=== PATIENT | female | born 1935 | race Caucasian/White ===

== ENCOUNTER 2016-05-31 10:13 | Emergency (ER) | payer MEDICARE, OTHER ==
[2016-05-31 10:47] VITALS: TEMP 98.6
--- NOTE | 2016-05-31 10:57 | ED.PDOC ---
History of Present Illness - General Chief Complaint: Lower Extremity Injury Stated Complaint: RIGHT ANKLE INJURY Time Seen by Provider: 05/31/16 10:42 Source: patient, family Exam Limitations: no limitations - History of Present Illness Initial Comments: Patient presents with right foot drop. She fell three times yesterday on an attempt to get to the restroom. Since then, she has not been able to dorsiflex the right foot. She can plantar flex it. She has no pain in the leg or foot. She has full sensation over the entire foot and can flex and extend the toes. No previous episodes. Patient has a history of CVA but has no other neurological complaints. Occurred: yesterday Method of Injury: unknown Improving Factors: nothing Worsening Factors: nothing Allergies/Adverse Reactions: Allergies Penicillin G Allergy (Mild, Verified 09/14/14 10:32) Rash Home Medications: Ambulatory Orders Gabapentin 300 mg PO BID 03/01/13 HYDROcodone 10MG/APAP 325MG [[place] 10/325] 10 - 325 mg PO TID 03/01/13 Warfarin Sodium 3 mg PO DAILY 03/01/13 predniSONE [(None)] 5 mg PO DAILY 03/01/13 Omeprazole 40 mg PO DAILY 06/09/13 Zonisamide 1 cap PO HS 06/09/13 Aspirin [(None)] 81 mg PO DAILY 09/14/14 Levothyroxine Sodium [Levoxyl] 100 mcg PO DAILY 09/14/14 Atenolol [Tenormin] 25 mg PO DAILY 02/18/15 Cyanocobalamin Inj [Vitamin B-12 Inj] 1,000 mcg IM MONTHLY 02/18/15 Fluoxetine HCl 20 mg PO DAILY 02/18/15 Levetiracetam 500 mg PO BID 02/18/15 Triamterene & Hydrochlorothiaz [Triamterene/Hydrochloroth 37.5-25 mg] 2 tab PO DAILY 02/18/15 Review of Systems - Review of Systems Constitutional: States: no symptoms reported EENTM: States: no symptoms reported Respiratory: States: no symptoms reported Cardiology: States: no symptoms reported Gastrointestinal/Abdominal: States: no symptoms reported Genitourinary: States: no symptoms reported Musculoskeletal: States: see HPI Skin: States: no symptoms reported Neurological: States: see HPI Endocrine: States: no symptoms reported Hematologic/Lymphatic: States: no symptoms reported Past Medical History (General) - Patient Medical History Hx Seizures: Yes Hx Stroke: Yes - TIA's Hx Cardiac Disorders: Yes - DVT, PE Hx Congestive Heart Failure: No Hx Hypertension: Yes Hx Thyroid Disease: Yes Hx Diabetes: No Hx Hepatitis C: No Surgical History: appendectomy, Hysterectomy - Vaccination History Hx Influenza Vaccination: Yes Hx Pneumococcal Vaccination: Yes - Social History Hx Tobacco Use: Yes Family Medical History - Family History Mother Living Status: Hx Family Congestive Heart Failure: Yes Hx Family Diabetes: Yes Physical Exam - Physical Exam General Appearance: Alert Eyes, Ears, Nose, Throat: normal ENT inspection Neck: non-tender, full range of motion, supple Cardiovascular/Respiratory: regular rate, rhythm Gastrointestinal/Abdominal: non-tender, other - NABS Back: normal inspection Thigh/Hip: normal inspection Leg: normal inspection Knee: normal inspection Ankle: normal inspection Foot: other - 5/5 strength to plantar flexion of the right and left feet. 5/5 strength to dorsiflexion of the left foot but patient is unable to dorsiflex the right foot. Normal achilles DTR and patellar DTR bilaterally. Full sensation to one gram probe over entire foot bilaterally. Progress - Progress Progress: 05/31/16 12:03 three view of right ankle showed no fractures nor dislocations. Patient ambulated very well with her walker and was able to hold the right foot at horizontal while walking. Discharged with instructions to follow up with physical therapy and to use the walker each time she tries to ambulate. Departure - Departure Clinical Impression: Foot drop, right Disposition: Discharge to Home or Self Care Condition: Good Departure Forms: ED Discharge - Pt. Copy, Patient Portal Self Enrollment Diet: resume usual diet Activity: as per physical therapy Home Medications: Ambulatory Orders Gabapentin 300 mg PO BID 03/01/13 HYDROcodone 10MG/APAP 325MG [[place] 10/325] 10 - 325 mg PO TID 03/01/13 Warfarin Sodium 3 mg PO DAILY 03/01/13 predniSONE [(None)] 5 mg PO DAILY 03/01/13 Omeprazole 40 mg PO DAILY 06/09/13 Zonisamide 1 cap PO HS 06/09/13 Aspirin [(None)] 81 mg PO DAILY 09/14/14 Levothyroxine Sodium [Levoxyl] 100 mcg PO DAILY 09/14/14 Atenolol [Tenormin] 25 mg PO DAILY 02/18/15 Cyanocobalamin Inj [Vitamin B-12 Inj] 1,000 mcg IM MONTHLY 02/18/15 Fluoxetine HCl 20 mg PO DAILY 02/18/15 Levetiracetam 500 mg PO BID 02/18/15 Triamterene & Hydrochlorothiaz [Triamterene/Hydrochloroth 37.5-25 mg] 2 tab PO DAILY 02/18/15 Additional Instructions: Follow up with physical therapy. Do not try to walk without the assistance of your walker until the physical therapist says you can.
--- NOTE | 2016-05-31 11:28 | RAD ---
EXAM DESCRIPTION: Ankle,Right 3 Views CLINICAL HISTORY: 81 yearsFemale, weak dorsiflexion, suspect distal fibular pathology COMPARISON: None. IMPRESSION: 3 views of the right ankle demonstrate no definitive evidence of acute fracture or destructive osseous lesion. There is an artifactual line traversing the distal fibula on the oblique view which does somewhat limit evaluation. If indicated, a follow-up MRI could further evaluate. Mild degenerative changes are present. There is no focal soft tissue swelling. Scattered vascular calcifications. Electronically signed by: Lazaro Contreras MD 05/31/2016 11:28 AM CDT
[2016-05-31 19:44] VITALS: BP 156/79; O2SAT 95
== END 2016-05-31 12:20 | disposition home or self-care (01) ==
LOC: ER 10:13
DX: M21.371 Foot drop, right foot (principal); I10 Essential (primary) hypertension; E07.9 Disorder of thyroid, unspecified; Z86.718 Personal history of other venous thrombosis and embolism; Z86.73 Personal history of transient ischemic attack (TIA), and cerebral infarction without residual deficits; Z87.891 Personal history of nicotine dependence; Z79.899 Other long term (current) drug therapy; Z79.82 Long term (current) use of aspirin; Z88.0 Allergy status to penicillin; Z79.01 Long term (current) use of anticoagulants

== ENCOUNTER → 2016-06-14 | Outpatient (CLI) | payer MEDICARE, OTHER | LOC: BFHH 09:03 | PROVIDERS: ATTEND Family Medicine | DX: I10 Essential (primary) hypertension (principal); E03.9 Hypothyroidism, unspecified ==

== ENCOUNTER 2016-06-23 11:18 | Emergency (ER) | payer MEDICARE, OTHER ==
--- NOTE | 2016-06-23 11:36 | ED.PDOC ---
History of Present Illness - General Chief Complaint: Respiratory Problem Stated Complaint: productive cough/fever Time Seen by Provider: 06/23/16 11:31 Source: patient, RN notes reviewed, Vital Signs reviewed Exam Limitations: no limitations - History of Present Illness Initial Comments: Elyssa Jackson 81 y/o female with history of a fib and chronic smoker stated that she had productive cough for the last 30 days and ems was called after it was noted that had a temp.-100.9 at home and getting weaker and sob .No chest pain no nausea/vomiting.She stated was here few weeks ago for frequent falls diagnosed with TIA and scheduled for MRI-head this week. Timing/Duration: other - 30 days ago Severity: moderate Possible Cause: other - chronic smoker Improving Factors: nothing Worsening Factors: nothing Associated Symptoms: cough, fever/chills, shortness of breath Respiratory Risk Factors: other Allergies/Adverse Reactions: Allergies Rosuvastatin [From Crestor] Allergy (Severe, Verified 06/23/16 11:36) Other CI Pigment Blue 63 [From Cymbalta] Allergy (Intermediate, Verified 06/23/16 11: 36) Vomitting Duloxetine [From Cymbalta] Allergy (Intermediate, Verified 06/23/16 11:36) Vomitting Sulfa Antibiotics Allergy (Intermediate, Verified 06/23/16 11:37) Hives Penicillin G Allergy (Mild, Verified 09/14/14 10:32) Rash Ciprofloxacin Allergy (Verified 06/23/16 11:36) Varenicline [From Chantix] Adverse Reaction (Intermediate, Verified 06/23/16 11: 37) Vomitting Home Medications: Ambulatory Orders Gabapentin 300 mg PO BID 03/01/13 HYDROcodone 10MG/APAP 325MG [[place] 10/325] 10 - 325 mg PO TID 03/01/13 predniSONE [(None)] 5 mg PO DAILY 03/01/13 Levothyroxine Sodium [Levoxyl] 1 each PO DAILY 09/14/14 Cyanocobalamin Inj [Vitamin B-12 Inj] 1,000 mcg IM MONTHLY 02/18/15 ALPRAZolam [Xanax] 0.5 mg PO DAILY 06/23/16 Albuterol Inhaler [Ventolin Hfa Inhaler] 108 mcg IN Q4HR #1 inh 06/23/16 Atenolol [Tenormin] 25 mg PO DAILY 06/23/16 Cefuroxime Axetil [Ceftin] 500 mg PO BID #14 tab 06/23/16 Cetirizine HCl 10 mg PO DAILY 06/23/16 Clopidogrel Bisulfate 75 mg PO BEDTIME 06/23/16 Cyanocobalamin [Vitamin B-12] 100 mcg PO DAILY 06/23/16 Diphenoxylate/Atropine [Lomotil Tab] 2.5 mg PO Q6HRS PRN 06/23/16 Doxycycline Hyclate 100 mg PO DAILY 06/23/16 Fluoxetine HCl [PROzac] 20 mg PO DAILY 06/23/16 Levetiracetam [Keppra] 500 mg PO BEDTIME 06/23/16 Meclizine HCl 25 mg PO Q6HR PRN 06/23/16 Megestrol Acetate [Megace Oral] 2.5 ml PO DAILY 06/23/16 Meloxicam [Mobic] 7.5 mg PO BID 06/23/16 Misc Natural Products [Colon Herbal Cleanser] 1 cap PO DAILY 06/23/16 Omeprazole [PriLOSEC Cap] 20 mg PO DAILY 06/23/16 fentaNYL PATCH 100 MCG/HR [Duragesic Patch 100 MCG/HR] 100 mcg TD .Q 72 HR 06/23 predniSONE [Prednisone] 30 mg PO PC #20 tab 06/23/16 Review of Systems - Review of Systems Constitutional: States: see HPI EENTM: States: no symptoms reported Respiratory: States: see HPI Cardiology: States: see HPI Gastrointestinal/Abdominal: States: no symptoms reported Genitourinary: States: no symptoms reported Musculoskeletal: States: no symptoms reported Skin: States: no symptoms reported Neurological: States: see HPI Endocrine: States: no symptoms reported Hematologic/Lymphatic: States: no symptoms reported Past Medical History (General) - Patient Medical History Hx Seizures: Yes Hx Stroke: Yes - TIA's Hx Cardiac Disorders: Yes - DVT, PE Hx Congestive Heart Failure: No Hx Hypertension: Yes Hx Thyroid Disease: Yes Hx Diabetes: No Hx Hepatitis C: No Surgical History: appendectomy, other - hysterectomy - Vaccination History Hx Influenza Vaccination: Yes Hx Pneumococcal Vaccination: Yes - Social History Hx Tobacco Use: Yes - continue to smoke Years Tobacco Use: 65 Cigarettes Packs Per Day: 30 Hx Alcohol Use: No Hx Substance Use: No - Activities of Daily Living Patient Lives Alone: No - Grooming Ability: Independent Eating (Feeding) Ability: Independent Toileting Ability: Independent Family Medical History - Family History Mother Living Status: Hx Family Congestive Heart Failure: Yes Hx Family Hypertension: Yes - dad Hx Family Diabetes: Yes - dad Hx Family Cancer: Yes - multiple family members-brain,gastric Physical Exam - Physical Exam General Appearance: Alert, Frail, No apparent distress Eye Exam: bilateral normal ENT Exam: normal ENT inspection, hearing grossly normal, TMs normal, pharynx normal Neck: non-tender, full range of motion, supple, normal inspection Respiratory: chest non-tender, no respiratory distress, decreased breath sounds , rales - fine rales both bases Cardiovascular/Chest: normal peripheral pulses, no edema, no gallop, no JVD, systolic murmur - g3/5, irregularly irregular Gastrointestinal/Abdominal: normal bowel sounds, non tender, soft, no organomegaly, no pulsatile mass Extremity: normal range of motion, non-tender, normal inspection Neurologic: no motor/sensory deficits, alert, normal mood/affect, oriented x 3 Skin Exam: normal color, warm/dry Lymphatic: no adenopathy Progress - Results/Orders Results/Orders: 06/23/16 11:39 URINALYSIS Stat 06/23/16 11:42 SVN/Updraft Therapy .ONCE 06/23/16 11:58 SPUTUM CULTURE Stat 06/23/16 12:18 Sodium Chloride 0.9% 1000ML [Ns 1000 ml] 1,000 ml IVS .QD 06/23/16 12:37 TSH [THYROID STIMULATING HORMONE] Stat 06/23/16 12:39 cefTRIAXone SODIUM [Rocephin] 1 gm Sodium Chl 0.9% 50Ml Min-Bag+ [NS 50ml MINI -BAG+] 50 ml IVPB ONCE 06/23/16 12:45 LACTIC ACID Stat 06/24/16 09:00 Updrafts Daily Laboratory Results WBC 6.5 K/mm3 (4.8-10.8) 06/23/16 11:52 RBC 4.24 M/mm3 (4.20-5.40) 06/23/16 11:52 Hgb 13.3 gm/dL (12.0-16.0) 06/23/16 11:52 Hct 39.9 % (36.0-47.0) 06/23/16 11:52 MCV 94.2 fl (81.0-99.0) 06/23/16 11:52 MCH 31.4 pg (27.0-31.0) H 06/23/16 11:52 MCHC 33.3 g/dL (33.0-37.0) 06/23/16 11:52 RDW 14.0 % (11.5-14.5) 06/23/16 11:52 Plt Count 177 K/mm3 (130-400) 06/23/16 11:52 MPV 9.5 fl (7.40-10.4) 06/23/16 11:52 Absolute Neuts (auto) 5.20 K/uL (1.8-6.8) 06/23/16 11:52 Absolute Lymphs (auto) 0.80 K/uL (1.0-3.4) L 06/23/16 11:52 Absolute Monos (auto) 0.40 K/uL (0.2-0.8) 06/23/16 11:52 Absolute Eos (auto) 0.10 K/uL (0.0-0.4) 06/23/16 11:52 Absolute Basos (auto) 0.00 K/uL (0.0-0.1) 06/23/16 11:52 Neutrophils % 79.2 % (42.0-78.0) H 06/23/16 11:52 Lymphocytes % 11.9 % (20.0-50.0) L 06/23/16 11:52 Monocytes % 6.8 % (2.0-9.0) 06/23/16 11:52 Eosinophils % 1.3 % (1.0-5.0) 06/23/16 11:52 Basophils % 0.8 % (0.0-2.0) 06/23/16 11:52 PT 13.8 SECONDS (9.4-12.5) H 06/23/16 11:52 INR 1.220 06/23/16 11:52 Sodium 134 mmol/L (135-145) L 06/23/16 11:52 Potassium 3.7 mmol/L (3.6-5.0) 06/23/16 11:52 Chloride 104 mmol/L (101-111) 06/23/16 11:52 Carbon Dioxide 23 mmol/L (21-31) 06/23/16 11:52 Anion Gap 10.7 (12-18) L 06/23/16 11:52 BUN 23 mg/dL (7-18) H 06/23/16 11:52 Creatinine 0.72 mg/dL (0.6-1.3) 06/23/16 11:52 BUN/Creatinine Ratio 31.9 (10-20) H 06/23/16 11:52 Random Glucose 89 mg/dL (70-105) 06/23/16 11:52 Serum Osmolality 271.4 mOsm/L (275-295) L 06/23/16 11:52 Calcium 8.7 mg/dL (8.4-10.2) 06/23/16 11:52 Total Bilirubin 0.3 mg/dL (0.2-1.0) 06/23/16 11:52 AST 21 IU/L (10-42) 06/23/16 11:52 ALT 13 IU/L (10-60) 06/23/16 11:52 Alkaline Phosphatase 45 IU/L (42-121) 06/23/16 11:52 Creatine Kinase 59 IU/L (26-140) 06/23/16 11:52 B-Natriuretic Peptide 144.0 pg/ml (0-100) H 06/23/16 11:52 Serum Total Protein 6.4 gm/dL (6.4-8.2) 06/23/16 11:52 Albumin 3.2 g/dl (3.2-5.5) 06/23/16 11:52 Globulin 3.2 gm/dL (2.3-3.5) 06/23/16 11:52 Albumin/Globulin Ratio 1.0 (1.1-1.9) L 06/23/16 11:52 - EKG/XRAY/CT XRAY: chest - COPD changes ,atelectasis,no effusion or consolidation Departure - Departure Clinical Impression: COPD exacerbation, Dehydration with hyponatremia Time of Disposition: 13:51 Disposition: Discharge to Home or Self Care Condition: Fair Departure Forms: ED Discharge - Pt. Copy, Patient Portal Self Enrollment Instructions: DI for Chronic Obstructive Pulmonary Disease, Smoking Cessation for Older Adults: It's Not Too Late! Prescriptions: Albuterol Inhaler [Ventolin Hfa Inhaler] 108 mcg IN Q4HR #1 inh Cefuroxime Axetil [Ceftin] 500 mg PO BID #14 tab predniSONE [Prednisone] 30 mg PO PC #20 tab Home Medications: Ambulatory Orders Gabapentin 300 mg PO BID 03/01/13 HYDROcodone 10MG/APAP 325MG [[place] 10/325] 10 - 325 mg PO TID 03/01/13 predniSONE [(None)] 5 mg PO DAILY 03/01/13 Levothyroxine Sodium [Levoxyl] 1 each PO DAILY 09/14/14 Cyanocobalamin Inj [Vitamin B-12 Inj] 1,000 mcg IM MONTHLY 02/18/15 ALPRAZolam [Xanax] 0.5 mg PO DAILY 06/23/16 Albuterol Inhaler [Ventolin Hfa Inhaler] 108 mcg IN Q4HR #1 inh 06/23/16 Atenolol [Tenormin] 25 mg PO DAILY 06/23/16 Cefuroxime Axetil [Ceftin] 500 mg PO BID #14 tab 06/23/16 Cetirizine HCl 10 mg PO DAILY 06/23/16 Clopidogrel Bisulfate 75 mg PO BEDTIME 06/23/16 Cyanocobalamin [Vitamin B-12] 100 mcg PO DAILY 06/23/16 Diphenoxylate/Atropine [Lomotil Tab] 2.5 mg PO Q6HRS PRN 06/23/16 Doxycycline Hyclate 100 mg PO DAILY 06/23/16 Fluoxetine HCl [PROzac] 20 mg PO DAILY 06/23/16 Levetiracetam [Keppra] 500 mg PO BEDTIME 06/23/16 Meclizine HCl 25 mg PO Q6HR PRN 06/23/16 Megestrol Acetate [Megace Oral] 2.5 ml PO DAILY 06/23/16 Meloxicam [Mobic] 7.5 mg PO BID 06/23/16 Misc Natural Products [Colon Herbal Cleanser] 1 cap PO DAILY 06/23/16 Omeprazole [PriLOSEC Cap] 20 mg PO DAILY 06/23/16 fentaNYL PATCH 100 MCG/HR [Duragesic Patch 100 MCG/HR] 100 mcg TD .Q 72 HR 06/23 predniSONE [Prednisone] 30 mg PO PC #20 tab 06/23/16 Additional Instructions: RETURN TO EMERGENCY ROOM NEEDED;FOLLOW UP WITH YOUR DOCTOR TOMORROW CALL HIS OFFICE FOR APPOINTMENT
[2016-06-23] MEDS ORDERED: IPRATROPIUM/ALBUTEROL 3 ML VIAL NEB ONE (11:44)
[2016-06-23] MEDS ORDERED: SODIUM CHLORIDE 0.9% 1000ML 1,000 ML IVS PRN (12:18)
[2016-06-23] MEDS ORDERED: cefTRIAXone SODIUM 1 GM in SODIUM CHL 0.9% 50ML MIN-BAG+ 50 ML IVPB ONE (12:39)
[2016-06-23] MEDS ORDERED: SODIUM CHL 0.9% 50ML MIN-BAG+ 50 ML IVPB ONE (12:43)
[2016-06-23] MEDS ORDERED: cefTRIAXone SODIUM 1 GM VIAL ONE (12:43)
--- NOTE | 2016-06-23 12:45 | RAD ---
PROCEDURE: XR CHEST 1 VIEW HISTORY: cough COMPARISON: 02/18/2015 TECHNIQUE: Single projection of the chest was done. FINDINGS: Chronic prominence of the interstitium is again seen in the bilateral lung mireles. The patient is slightly rotated to the right side. There is stable mild discoid atelectasis/parenchymal scarring in the left lower lung zone . There are no discrete airspace infiltrates, pneumothoraces or pleural effusions. The pulmonary vascularity is normal. The cardiomediastinal silhouette is unremarkable for patient's age and sex. IMPRESSION: There is no acute pleural-parenchymal process seen in the imaged lung mireles. Underlying changes of COPD. There is stable mild discoid atelectasis/parenchymal scarring in the left lower lung zone . Electronically signed by: Hong Iyer MD 06/23/2016 12:44 PM CDT
[2016-06-23] MEDS ORDERED: predniSONE 20 MG TAB PO ONE (12:58)
[2016-06-23 14:25] VITALS: BP 111/68; TEMP 99.4; O2SAT 96
== END 2016-06-23 14:25 | disposition home or self-care (01) ==
LOC: ER 11:18
DX: J44.1 Chronic obstructive pulmonary disease with (acute) exacerbation (principal); E87.1 Hypo-osmolality and hyponatremia; E86.0 Dehydration; I10 Essential (primary) hypertension; E07.9 Disorder of thyroid, unspecified; F17.210 Nicotine dependence, cigarettes, uncomplicated; Z86.718 Personal history of other venous thrombosis and embolism; Z86.711 Personal history of pulmonary embolism; Z86.73 Personal history of transient ischemic attack (TIA), and cerebral infarction without residual deficits; Z79.899 Other long term (current) drug therapy; Z88.2 Allergy status to sulfonamides; Z88.0 Allergy status to penicillin; Z88.3 Allergy status to other anti-infective agents
CPT/HCPCS: 36415; 71010; 80053; 81001; 82550; 83605; 83880; 84443; 85025; 85610; 87070; 94640; J0696; J7030; J7050; J7512; J7620

== ENCOUNTER 2016-06-25 10:18 | Inpatient (IN) | payer MEDICARE, OTHER ==
--- NOTE | 2016-06-25 10:42 | ED.PDOC ---
History of Present Illness - General Chief Complaint: Trauma Stated Complaint: fall Time Seen by Provider: 06/25/16 10:28 Source: patient, RN notes reviewed, family Exam Limitations: no limitations - History of Present Illness Initial Comments: Ms. Elyssa Jackson 81 y/o female with history of cad,copd,chronic pain problem due to arthritis was stated that he found herself lying on the floor this am and was able to get up by herself stated could not remember how she ended up on the floor and felt pain and swelling on her left knee.She was seen here [facility] er 06/24/16 for cough /fever was worked up blood test were all -wnl;cxr-copd changes was give po steroid and oral antibiotics and sent home.Granddaughter stated that she changed with new fentanyl patch yesterday. Timing/Duration: unsure Severity: moderate Improving Factors: nothing Worsening Factors: nothing Associated Symptoms: syncope Allergies/Adverse Reactions: Allergies Rosuvastatin [From Crestor] Allergy (Severe, Verified 06/25/16 10:41) Other CI Pigment Blue 63 [From Cymbalta] Allergy (Intermediate, Verified 06/25/16 10: 41) Vomitting Duloxetine [From Cymbalta] Allergy (Intermediate, Verified 06/25/16 10:41) Vomitting Sulfa Antibiotics Allergy (Intermediate, Verified 06/25/16 10:41) Hives Penicillin G Allergy (Mild, Verified 06/25/16 10:41) Rash Ciprofloxacin Allergy (Verified 06/25/16 10:41) Varenicline [From Chantix] Adverse Reaction (Intermediate, Verified 06/25/16 10: 41) Vomitting Home Medications: Ambulatory Orders Gabapentin 300 mg PO BID 03/01/13 HYDROcodone 10MG/APAP 325MG [Gaston 10/325] 10 - 325 mg PO TID 03/01/13 predniSONE [(None)] 5 mg PO DAILY 03/01/13 Levothyroxine Sodium [Levoxyl] 1 each PO DAILY 09/14/14 Cyanocobalamin Inj [Vitamin B-12 Inj] 1,000 mcg IM MONTHLY 02/18/15 ALPRAZolam [Xanax] 0.5 mg PO DAILY 06/23/16 Albuterol Inhaler [Ventolin Hfa Inhaler] 108 mcg IN Q4HR #1 inh 06/23/16 Atenolol [Tenormin] 25 mg PO DAILY 06/23/16 Cefuroxime Axetil [Ceftin] 500 mg PO BID #14 tab 06/23/16 Cetirizine HCl 10 mg PO DAILY 06/23/16 Clopidogrel Bisulfate 75 mg PO BEDTIME 06/23/16 Cyanocobalamin [Vitamin B-12] 100 mcg PO DAILY 06/23/16 Diphenoxylate/Atropine [Lomotil Tab] 2.5 mg PO Q6HRS PRN 06/23/16 Doxycycline Hyclate 100 mg PO DAILY 06/23/16 Fluoxetine HCl [PROzac] 20 mg PO DAILY 06/23/16 Levetiracetam [Keppra] 500 mg PO BEDTIME 06/23/16 Meclizine HCl 25 mg PO Q6HR PRN 06/23/16 Megestrol Acetate [Megace Oral] 2.5 ml PO DAILY 06/23/16 Meloxicam [Mobic] 7.5 mg PO BID 06/23/16 Misc Natural Products [Colon Herbal Cleanser] 1 cap PO DAILY 06/23/16 Omeprazole [PriLOSEC Cap] 20 mg PO DAILY 06/23/16 fentaNYL PATCH 100 MCG/HR [Duragesic Patch 100 MCG/HR] 100 mcg TD .Q 72 HR 06/23 predniSONE [Prednisone] 30 mg PO PC #20 tab 06/23/16 Review of Systems - Review of Systems Constitutional: States: no symptoms reported EENTM: States: no symptoms reported Respiratory: States: cough Cardiology: States: no symptoms reported Gastrointestinal/Abdominal: States: other - loss of appetite Musculoskeletal: States: back pain - chronic, joint pain - chronic oa Skin: States: no symptoms reported Neurological: States: no symptoms reported Endocrine: States: no symptoms reported Hematologic/Lymphatic: States: easy bruising - taking antiplatelet Past Medical History (General) - Patient Medical History Hx Seizures: Yes Hx Stroke: Yes - TIA's Hx Cardiac Disorders: Yes - DVT, PE Hx Congestive Heart Failure: No Hx Hypertension: Yes Hx Thyroid Disease: Yes Hx Diabetes: No Hx Hepatitis C: No Surgical History: appendectomy, other - hysterectomy - Vaccination History Hx Influenza Vaccination: Yes Hx Pneumococcal Vaccination: Yes - Social History Hx Tobacco Use: Yes - continue to smoke Years Tobacco Use: 65 Cigarettes Packs Per Day: 30 Hx Alcohol Use: No Hx Substance Use: No - Activities of Daily Living Patient Lives Alone: No - Grooming Ability: Independent Eating (Feeding) Ability: Independent Toileting Ability: Independent Family Medical History - Family History Mother Living Status: Hx Family Congestive Heart Failure: Yes - mom Hx Family Hypertension: Yes - dad Hx Family Diabetes: Yes - dad Hx Family Cancer: Yes - multiple family members-brain,gastric Physical Exam - Physical Exam General Appearance: Alert, Frail, No apparent distress Eye Exam: bilateral normal Ears, Nose, Throat: hearing grossly normal, normal ENT inspection, normal pharynx Neck: non-tender, full range of motion, supple, normal inspection Respiratory: chest non-tender, lungs clear, normal breath sounds, no respiratory distress Cardiovascular/Chest: normal peripheral pulses, regular rate, rhythm, no edema, no gallop Peripheral Pulses: radial,right: 2+, radial,left: 2+ Gastrointestinal/Abdominal: normal bowel sounds, non tender, soft, no organomegaly Back Exam: normal inspection, vertebral tenderness - lower back Extremity: normal range of motion, non-tender, swelling - left knee, other Neurologic: no motor/sensory deficits, alert, normal mood/affect, oriented x 3 Skin Exam: normal color, warm/dry Lymphatic: no adenopathy Progress - Progress Progress: 06/25/16 12:09 06/25/16 10:45 SVN/Updraft Therapy .ONCE Laboratory Results WBC 8.1 K/mm3 (4.8-10.8) 06/25/16 11:09 RBC 4.26 M/mm3 (4.20-5.40) 06/25/16 11:09 Hgb 13.2 gm/dL (12.0-16.0) 06/25/16 11:09 Hct 40.8 % (36.0-47.0) 06/25/16 11:09 MCV 95.6 fl (81.0-99.0) 06/25/16 11:09 MCH 30.9 pg (27.0-31.0) 06/25/16 11:09 MCHC 32.4 g/dL (33.0-37.0) L 06/25/16 11:09 RDW 13.8 % (11.5-14.5) 06/25/16 11:09 Plt Count 178 K/mm3 (130-400) 06/25/16 11:09 MPV 8.9 fl (7.40-10.4) 06/25/16 11:09 Absolute Neuts (auto) 6.00 K/uL (1.8-6.8) 06/25/16 11:09 Absolute Lymphs (auto) 1.10 K/uL (1.0-3.4) 06/25/16 11:09 Absolute Monos (auto) 0.90 K/uL (0.2-0.8) H 06/25/16 11:09 Absolute Eos (auto) 0.10 K/uL (0.0-0.4) 06/25/16 11:09 Absolute Basos (auto) 0.00 K/uL (0.0-0.1) 06/25/16 11:09 Neutrophils % 73.8 % (42.0-78.0) 06/25/16 11:09 Lymphocytes % 13.2 % (20.0-50.0) L 06/25/16 11:09 Monocytes % 10.9 % (2.0-9.0) H 06/25/16 11:09 Eosinophils % 1.5 % (1.0-5.0) 06/25/16 11:09 Basophils % 0.6 % (0.0-2.0) 06/25/16 11:09 PT 12.5 SECONDS (9.4-12.5) 06/25/16 11:09 INR 1.110 06/25/16 11:09 PTT (SP) 29.3 SECONDS (25.1-36.5) 06/25/16 11:09 Sodium 132 mmol/L (135-145) L 06/25/16 11:09 Potassium 3.5 mmol/L (3.6-5.0) L 06/25/16 11:09 Chloride 102 mmol/L (101-111) 06/25/16 11:09 Carbon Dioxide 21 mmol/L (21-31) 06/25/16 11:09 Anion Gap 12.5 (12-18) 06/25/16 11:09 BUN 28 mg/dL (7-18) H 06/25/16 11:09 Creatinine 1.98 mg/dL (0.6-1.3) H D 06/25/16 11:09 BUN/Creatinine Ratio 14.1 (10-20) 06/25/16 11:09 Random Glucose 95 mg/dL (70-105) 06/25/16 11:09 Serum Osmolality 269.8 mOsm/L (275-295) L 06/25/16 11:09 Calcium 8.6 mg/dL (8.4-10.2) 06/25/16 11:09 Magnesium 1.5 mg/dL (1.8-2.5) L 06/25/16 11:09 Total Bilirubin 0.5 mg/dL (0.2-1.0) 06/25/16 11:09 AST 27 IU/L (10-42) 06/25/16 11:09 ALT 16 IU/L (10-60) 06/25/16 11:09 Alkaline Phosphatase 41 IU/L (42-121) L 06/25/16 11:09 Creatine Kinase 171 IU/L (26-140) H D 06/25/16 11:09 CK-MB (CK-2) 6.7 ng/mL (0.0-4.4) H* 06/25/16 11:09 CK-MB (CK-2) % 3.92 % (0.0-4.3) 06/25/16 11:09 Troponin I 0.04 ng/mL (0.01-0.05) 06/25/16 11:09 Serum Total Protein 6.1 gm/dL (6.4-8.2) L 06/25/16 11:09 Albumin 3.3 g/dl (3.2-5.5) 06/25/16 11:09 Globulin 2.8 gm/dL (2.3-3.5) 06/25/16 11:09 Albumin/Globulin Ratio 1.2 (1.1-1.9) 06/25/16 11:09 Urine Color Yellow (Yellow) 06/25/16 11:55 Urine Appearance Cloudy (Clear) 06/25/16 11:55 Urine pH 5.0 (4.5-7.8) 06/25/16 11:55 Ur Specific [place] >= 1.030 (1.005-1.030) 06/25/16 11:55 Urine Protein 100 mg/dL H 06/25/16 11:55 Urine Glucose (UA) Negative mg/dL (Negative) 06/25/16 11:55 Urine Ketones Trace mg/dL (NEGATIVE) 06/25/16 11:55 Urine Blood Negative (Negative) 06/25/16 11:55 Urine Nitrite Negative 06/25/16 11:55 Urine Bilirubin Small (NEGATIVE) H 06/25/16 11:55 Urine Urobilinogen 0.2 mg/dL (0.2-1.0) 06/25/16 11:55 Ur Leukocyte Esterase Negative (Negative) 06/25/16 11:55 Urine RBC 3-5 /hpf H 06/25/16 11:55 Urine WBC 5-10 /hpf H 06/25/16 11:55 Ur Epithelial Cells 1-3 /hpf 06/25/16 11:55 Amorphous Sediment 3+ 06/25/16 11:55 Urine Bacteria 3+ H 06/25/16 11:55 Urine Mucus Small 06/25/16 11:55 - EKG/XRAY/CT EKG: LBBB Comments: HR-76;previous ekg-LBBB XRAY: knee - left no fracture noted CT: senescent changes - Additional EKG/XRAY/Consults Consult/PCP: D/W Hospitalist Dr. Steward for admit due to fall,altered mental status Departure - Departure Clinical Impression: Altered awareness, transient, Dehydration, COPD mixed type Fall at home Qualifiers: Encounter type: initial encounter Qualifier Code: (W19.XXXA) Unspecified fall, initial encounter Pain, chronic Qualifiers: Chronic pain type: other chronic pain Qualifier Code: (G89.29) Other chronic pain Nicotine dependence Qualifiers: Nicotine product type: cigarettes Substance use status: uncomplicated Qualifier Code: (F17.210) Nicotine dependence, cigarettes, uncomplicated Time of Disposition: 13:21 - D/W Dr. Steward Hospitalist for admit Disposition: Admit Patient Condition: Fair Departure Forms: Patient Portal Self Enrollment Home Medications: Ambulatory Orders Gabapentin 300 mg PO BID 03/01/13 HYDROcodone 10MG/APAP 325MG [Gaston 10/325] 10 - 325 mg PO TID 03/01/13 predniSONE [(None)] 5 mg PO DAILY 03/01/13 Levothyroxine Sodium [Levoxyl] 1 each PO DAILY 09/14/14 Cyanocobalamin Inj [Vitamin B-12 Inj] 1,000 mcg IM MONTHLY 02/18/15 ALPRAZolam [Xanax] 0.5 mg PO DAILY 06/23/16 Albuterol Inhaler [Ventolin Hfa Inhaler] 108 mcg IN Q4HR #1 inh 06/23/16 Atenolol [Tenormin] 25 mg PO DAILY 06/23/16 Cefuroxime Axetil [Ceftin] 500 mg PO BID #14 tab 06/23/16 Cetirizine HCl 10 mg PO DAILY 06/23/16 Clopidogrel Bisulfate 75 mg PO BEDTIME 06/23/16 Cyanocobalamin [Vitamin B-12] 100 mcg PO DAILY 06/23/16 Diphenoxylate/Atropine [Lomotil Tab] 2.5 mg PO Q6HRS PRN 06/23/16 Doxycycline Hyclate 100 mg PO DAILY 06/23/16 Fluoxetine HCl [PROzac] 20 mg PO DAILY 06/23/16 Levetiracetam [Keppra] 500 mg PO BEDTIME 06/23/16 Meclizine HCl 25 mg PO Q6HR PRN 06/23/16 Megestrol Acetate [Megace Oral] 2.5 ml PO DAILY 06/23/16 Meloxicam [Mobic] 7.5 mg PO BID 06/23/16 Misc Natural Products [Colon Herbal Cleanser] 1 cap PO DAILY 06/23/16 Omeprazole [PriLOSEC Cap] 20 mg PO DAILY 06/23/16 fentaNYL PATCH 100 MCG/HR [Duragesic Patch 100 MCG/HR] 100 mcg TD .Q 72 HR 06/23 predniSONE [Prednisone] 30 mg PO PC #20 tab 06/23/16
[2016-06-25] MEDS ORDERED: IPRATROPIUM/ALBUTEROL 3 ML VIAL NEB ONE (10:46)
--- NOTE | 2016-06-25 11:42 | CT ---
EXAM DESCRIPTION: CT head CLINICAL HISTORY: Altered level of consciousness COMPARISON: None. TECHNIQUE: Noncontrast spiral CT of the brain. FINDINGS: No intracranial hemorrhage, acute cortical infarction or mass lesion. White matter disease, nonspecific likely mild remote microvascular ischemia. Ventricles are normal in size and configuration. Age-appropriate cerebral volume loss No calvarial or skullbase fracture. No fluid in the paranasal sinuses or mastoid air cells IMPRESSION: Senescent brain. No diagnostic acute abnormality Electronically signed by: Tony Martin MD 06/25/2016 11:42 AM CDT
--- NOTE | 2016-06-25 11:52 | RAD ---
EXAM DESCRIPTION: Chest,1 View CLINICAL HISTORY: cough COMPARISON: Clinical 2016 FINDINGS: The heart is at the upper limits of normal size for AP technique or slightly enlarged. Mediastinal contours are otherwise unremarkable. A small nodular opacity adjacent to the right hilum represents an end on vessel. Mild basilar interstitial prominence is noted, not significantly changed from the patient's prior exam. There is no airspace consolidation or pleural effusion. The lungs are not hyperinflated. There is no pneumothorax or acute fracture. IMPRESSION: Bilateral perihilar and bibasilar interstitial opacities, not significantly changed from the prior exam. Differential considerations include subsegmental atelectasis, scarring, mild interstitial edema or infection, likely viral. No new abnormality. Electronically signed by: Geo Morrison MD 06/25/2016 11:51 AM CDT
--- NOTE | 2016-06-25 11:54 | RAD ---
EXAM DESCRIPTION: Knee,Left 2 or More Views CLINICAL HISTORY: 81 years Female, pain COMPARISON: None. FINDINGS: 2 views of the left knee show no acute fracture or malalignment. There is a tiny left knee joint effusion. Moderate medial joint space narrowing is noted with small osteophytes along the medial margin of the left knee joint. Small osteophytes are also noted along the superior and inferior patellar poles. Vascular calcifications are noted posterior to the left knee. IMPRESSION: Moderate degenerative changes in the medial and patellofemoral compartments with a tiny left knee joint effusion. Vascular calcifications. Electronically signed by: Geo Morrison MD 06/25/2016 11:53 AM CDT
[2016-06-25] MEDS ORDERED: SODIUM CHLORIDE 0.9% 500ML 500 ML IVS ONE (12:31)
[2016-06-25] MEDS ORDERED: SODIUM CHLORIDE 0.9% (FLUSH) 10 ML SYG IV PRN (13:40)
[2016-06-25] MEDS ORDERED: ALUM & MAG HYDROX-SIMETHICONE 30 ML UD PO PRN (13:40)
[2016-06-25] MEDS ORDERED: MAGNESIUM HYDROXIDE 30 ML UD PO PRN (13:40)
[2016-06-25] MEDS ORDERED: HYDROcodone 5MG/APAP 325MG 1 EA TAB PO PRN (13:40)
[2016-06-25] MEDS ORDERED: LEVALBUTEROL NEBS 0.63 MG/3 ML VIAL INH PRN (13:40)
--- NOTE | 2016-06-25 13:47 | HP ---
HISTORY OF PRESENT ILLNESS: This 81 year-old white female lives at home with her invalid who has fairly significant dementia. She apparently awoke earlier this morning and found herself on the floor which was carpeted and felt quite cold. She eventually told family that she spent most of the night on the floor and does not remember getting onto the floor. She was very confused and very lethargic. She has a history of taking a lot of pain medicines for chronic back and hip discomforts. She has a habit of having an alarm that goes off and telling her that she is to take her pain medicines, but if she is not having that much pain she will take the pain pill out and save it off to the side and hide it, and unfortunately no one knows whether she will take those medicines when she feels like she needs it or could be doubling up and not knowing it. She is also on Fentanyl 100 mcg patch every 72 hours. Of note is that in 2008 she was admitted to the hospital with significant obtundation and at that time was on 75 mcg of Fentanyl patch, and in 2011 she was on 100 mcg of Fentanyl and both times she was admitted to the hospital with altered level of consciousness and somnolence which slowly improved as some of her medications were withdrawn. This time in the Emergency Room, she was very sleepy and snoring as she was sleeping with her tongue blocking her airway. She breathed better when she was on her side. She was not moving in the bed and was significantly obtunded with altered level of consciousness. Significant behavioral changes and disorientation also present. In the Emergency Room, she had a CT scan of the head which failed to show any significant findings. Her neurologist, Dr. Loyola, had previously ordered an MRI of the head to be performed later this week and this was also to be done as we were continuing the evaluation and observation of the patient's significant decline. She is in chronic pain in her low back as well as hip areas. She was in the Emergency Room 48 hours before her current admission, again suggesting repeat admissions to the Emergency Room and would require ongoing followup in the hospital because of a significant underlying process. In the Emergency Room, she was also found to have a renal injury with worsening renal function and she is a chronic smoker, and there is a urinary tract infection as well also contributing to her significant obtunded state. PAST MEDICAL HISTORY: 1. History of diarrhea in the past. 2. History of deep venous thrombosis with pulmonary emboli years ago. 3. History of chronic depression. 4. Chronic back pain for which she takes a lot of analgesics. 5. History of possible cerebrovascular nonhemorrhagic event in the past with fairly good recovery. 6. History of rheumatoid arthritis in the past. 7. Diverticulitis. PAST SURGICAL HISTORY: 1. Appendectomy. 2. Hysterectomy. CURRENT MEDICATIONS: Please refer to nurses' notes for a complete list of verified medications taken by the patient at home, most of which are in a dispenser which Home Health helps fill, yet there is unfortunately sometimes poor compliance as to the actual taking or the doubling up of the medicines at a later time. ALLERGIES: PENICILLIN. FAMILY HISTORY: Positive for cancer, coronary artery disease, high blood pressure and diabetes. SOCIAL HISTORY: The patient lives in [place] with her with a son who is retired living close by. She has been a heavy smoker in the past. REVIEW OF SYSTEMS: Difficult to obtain because of the patient's inability to communicate. PHYSICAL EXAMINATION: VITAL SIGNS: Afebrile, pulse 68, blood pressure 98/60, respirations down to 4 and 5 per minute, pulse oximetry 95% nasal cannula, yet was down to 83 on room air requiring oxygen supplementation. The patient's respiratory efforts were so suppressed that she was given 0.2 mg of Narcan and showed a significant improvement noticed by family present with moving of the arms and yawning, and looking around and being able to recognize people. After another couple of hours, it had to be repeated because of the increasing somnolence. Weight 50.7 kilos. HEENT: During her altered level of consciousness when lying on her back, her tongue would significantly occlude the airway requiring special positioning of the patient to assist with airway control. Respiratory Therapy are going to have to intervene and be very aggressive in helping to maintain a good adequate airway. The patient was breathing much improved after the Narcan had been administered even though at a low dose. CHEST: Lungs generally clear. CARDIOVASCULAR: Heart tones regular. ABDOMEN: Soft though she does respond a little bit when palpated, especially after the Narcan. EXTREMITIES: Thin with diminished muscle tone. NEUROLOGIC: The patient is extremely obtunded suggesting significant medication effect with further investigation to rule out underlying ischemic encephalopathy or stroke contributing such as a brainstem. LABORATORY: White count 8,100, hemoglobin 13.2, INR 1.1. Chemistries showed potassium 3.5, sodium 132, CO2 of 21, BUN 28, creatinine 1.98, osmolality 270, magnesium 1.5, alkaline phosphatase 171 while troponin is 0.04, albumin 3.3. Urinalysis shows proteinuria, hematuria, pyuria and bacteriuria with culture pending. Brain MRI failed to show any significant intracranial acute process with fairly significant volume loss noted. Knee x-ray showed some arthritic and vascular calcifications. Head CT showed no acute findings. Chest x-ray revealed bilateral perihilar and bibasilar interstitial opacities unchanged from prior exam. ASSESSMENT: 1. Acute though recurrent altered level of consciousness with associated apnea and behavioral changes. 2. Significant opioid-induced encephalopathy secondary to significant doses of opioid analgesia. 3. Acute syncopal episode having spent the night on the carpeted floor and the patient with no recollection of how she got there. 4. Chronic pain in her back and hip regions for which she takes analgesia. 5. Dehydration requiring hydration. 6. Mild hypokalemia with supplement started. 7. EKG showing left bundle branch block. 8. Frequent falls noted at home. 9. Repeat Emergency Room admissions within 48 hours of admission to the hospital. 10. Acute renal injury with elevated BUN and creatinine. 11. Acute urinary tract infection with culture pending. 12. Chronic obstructive pulmonary disease in a chronic smoker. PLAN: The patient is placed in the hospital for close observation and repeat frequent neuro vitals. Position to help maintain oral airway. Give as needed Narcan low dose with attention to try to avoid full tilt opioid withdrawal syndrome. Await until the patient is more alert and then in the morning consider starting a lower dose of Duragesic, such as 50 mcg instead of the full tilt 100 mcg currently being taken for a number of years. Special attention to controlling the administration of analgesics at home to prevent the collection and buildup on medicines which can be taken at once or doubled up contributing to some of the significantly obtunded states. Special attention to improving function. Physical Therapy to evaluate for the safety of ambulation. The patient may benefit by rehabilitation. Further investigation as to the cause of the significant pain that she is having to see if it can be helped with vertebroplasty or other treatment modalities. Close followup with Dr. Schmitt in the clinic. #[id number] [facility]
[2016-06-25] MEDS ORDERED: IV SET AND CAP CHANGE INJ INJ SCH (14:00)
[2016-06-25] MEDS: LEVALBUTEROL NEBS 1.25 MG/3 ML VIAL INH SCH ×2 (14:00→20:00)
[2016-06-25] MEDS ORDERED: NALOXONE HCL INJ 0.4 MG/ML VIAL ONE ×2 (14:45→19:51)
[2016-06-25] MEDS ORDERED: NALOXONE HCL INJ 0.4 MG/ML VIAL IV ONE (14:49)
--- NOTE | 2016-06-25 15:09 | MRI ---
EXAM DESCRIPTION: Brain w/o Contrast CLINICAL HISTORY: Falls, altered LOC COMPARISON: CT head earlier same day. TECHNIQUE: Non contrastMRI of the brain is performed according to our usual protocol including multiplanar multi sequence technique. FINDINGS: No hemorrhage, mass effect, diffusion restriction, or acute infarction is present. Mild generalized volume loss is present. Mild T2/FLAIR hyperintensities in the supratentorial white matter. No abnormal extra-axial fluid collections are present. Normal flow voids are present. The calvarium is intact. Visualized paranasal sinuses and mastoid air cells are clear. IMPRESSION: 1. No acute intracranial abnormality. 2. Mild chronic microangiopathy. 3. Mild volume loss. Electronically signed by: Lazaro Contreras MD 06/25/2016 3:08 PM CDT
[2016-06-25] MEDS ORDERED: SODIUM CHL 0.9% 50ML MIN-BAG+ 50 ML IVPB ONE (15:15)
[2016-06-25] MEDS ORDERED: cefTRIAXone SODIUM 1 GM VIAL ONE (15:15)
[2016-06-25] MEDS: cefTRIAXone SODIUM 1 GM in SODIUM CHL 0.9% 50ML MIN-BAG+ 50 ML IVPB SCH (15:18)
[2016-06-25] MEDS: KCL 20 MEQ/NS 1,000 ML IVS PRN (18:55)
[2016-06-25] MEDS ORDERED: NALOXONE HCL INJ 0.4 MG/ML VIAL IV PRN (19:55)
[2016-06-25] MEDS: levETIRAcetam 250 MG TAB PO SCH (20:41)
[2016-06-25] MEDS: GABAPENTIN 300 MG CAP PO SCH (20:42)
[2016-06-25] MEDS: MELOXICAM 7.5 MG TAB PO SCH (20:42)
[2016-06-26] MEDS ORDERED: cefTRIAXone SODIUM 1 GM VIAL ONE ×3 (00:52→15:02)
[2016-06-26] MEDS ORDERED: SODIUM CHL 0.9% 50ML MIN-BAG+ 50 ML IVPB ONE ×2 (00:52→15:02)
[2016-06-26] MEDS: cefTRIAXone SODIUM 1 GM in SODIUM CHL 0.9% 50ML MIN-BAG+ 50 ML IVPB SCH ×2 (01:34→15:11)
[2016-06-26] MEDS ORDERED: OMEPRAZOLE CAP 20 MG CAP ONE (05:13)
[2016-06-26] MEDS ORDERED: LEVOTHYROXINE SODIUM 0.112 MG TAB ONE (05:13)
[2016-06-26] MEDS: OMEPRAZOLE CAP 20 MG CAP PO SCH (05:44)
[2016-06-26] MEDS: LEVOTHYROXINE SODIUM 0.112 MG TAB PO SCH (05:45)
[2016-06-26] MEDS ORDERED: ATENOLOL 25 MG TAB ONE (07:53)
[2016-06-26] MEDS ORDERED: predniSONE 5 MG TAB ONE (07:53)
[2016-06-26] MEDS: LEVALBUTEROL NEBS 1.25 MG/3 ML VIAL INH SCH ×3 (08:10→20:12)
[2016-06-26] MEDS: KCL 20 MEQ/NS 1,000 ML IVS PRN ×3 (08:45→22:09)
[2016-06-26] MEDS: levETIRAcetam 250 MG TAB PO SCH ×2 (09:31→20:00)
[2016-06-26] MEDS: GABAPENTIN 300 MG CAP PO SCH ×2 (09:31→20:13)
[2016-06-26] MEDS: ATENOLOL 25 MG TAB PO SCH (09:33)
[2016-06-26] MEDS: predniSONE 5 MG TAB PO SCH (09:33)
[2016-06-26] MEDS: MELOXICAM 7.5 MG TAB PO SCH ×2 (09:34→20:36)
[2016-06-26] MEDS: fentaNYL PATCH 50 MCG/HR 1 EA PATCH TD SCH (15:12)
--- NOTE | 2016-06-26 17:31 | PCM.CORE ---
Physician DVT/VTE - Nurse DVT Assessment & Total Each Risk Factor Represents 3 Points: Age over 75 years DVT Assessment Score: 3 - 3-4 High Risk Treatments: Early Ambulation *, Sequential Compression Device Pharmacological: Enoxaparin 40 mg SQ Daily
[2016-06-26] MEDS ORDERED: MAGNESIUM SULFATE PREMIX 2GM 2 GM in PREMIX BAG 1 BAG IVPB ONE (18:13)
[2016-06-26] MEDS ORDERED: MAGNESIUM SULFATE PREMIX 2GM 50 ML IVPB ONE (19:54)
[2016-06-26] MEDS: ENOXAPARIN SODIUM 40 MG/0.4 ML SYG SUBCU SCH (20:14)
[2016-06-26] MEDS ORDERED: KCL 20MEQ/0.45% NS 0 ML IVS ONE (20:28)
--- NOTE | 2016-06-26 20:34 | PN ---
DATE: 06/26/16 SUPERVISING PHYSICIAN: Tony Freedman M.D. SUBJECTIVE: The patient is alert this morning. She is a little confused as to where she is at, but easily reoriented. She is conversing with her daughter and the daughter notes that she is fairly well close back to her mental status in regards to baseline. She did require some Narcan through the night which did show dramatic response once given giving support that the patient may have over medicated herself in regards to pain medicine. She remains afebrile. She has had no nausea or vomiting. OBJECTIVE: VITAL SIGNS: Temperature 98.7, pulse 74, blood pressure 145/70, respirations 16 showing 95% on nasal cannula and 93% on room air. Weight was 51.2 kg. I's and O's show a positive balance of 1059 with 1809 in, 750 out. GENERAL: The patient is resting in bed just having finished breakfast, conversing with her daughter. She appears to be in no acute distress and she is alert to herself and circumstances, but not location. CHEST: Lungs are clear to auscultation bilaterally. HEART: Regular rate and rhythm. ABDOMEN: Soft, non-tender. Positive bowel sounds. EXTREMITIES: No clubbing, cyanosis or edema. NEUROLOGIC: She is alert to herself, circumstances but not to location having to be reoriented. Cranial nerves show to be grossly intact on II-XII. Facial features are symmetric. Extraocular movements are within normal limits. There is no notable nystagmus. There is no discernible localizing or focalizing neuromotor or sensory deficits. LABORATORY: Today, her sodium shows improved to be 137 with an improved normalized potassium at 3.8. BUN has gone down to 20 and creatinine has normalized at 0.91. CPK has normalized to 95 as well as troponin has come down to 0.03. Magnesium is pending. RADIOLOGY: No additional radiographic studies were completed this morning. ASSESSMENT: 1. Acute altered level of consciousness with the patient having a history of recurrent altered level of consciousness oftentimes associated with behavioral changes and apnea now showing dramatic improvement with the patient close to baseline mental status. 2. 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 3. Acute syncopal episode having spent the previous night on the floor with no recollection of how she got there more likely related to her opioid induced encephalopathy. 4. Chronic pain in her back and hip regions for which she takes multiple analgesia. 5. Dehydration requiring ongoing IV therapy showing improvement. 6. Mild hypokalemia with supplementation provided showing improvement. 7. Left bundle branch block as noted on initial EKG. 8. Frequent falls as noted most likely secondary to number 1 and 2. 9. Multiple repeat Emergency Room admissions within the last 48 hours for similar episodes and now requiring admission to the hospital. 10. Acute renal failure likely prerenal azotemia from dehydration showing improvement after starting on IV therapy. 11. Recurrent urinary tract infection with cultures still pending possibly contributing to number 1. 12. Chronic obstructive pulmonary disease in a chronic smoker without any signs or symptoms of exacerbation. 13. Hypomagnesemia with close monitoring needing replacement. PLAN: The patient will be continued in hospital admission and closely observed , awaiting final culture results. She will remain on antibiotics to include Rocephin. Will treat final results accordingly and modify antibiotic regimen as needed. I did change her Fentanyl patch to 50 mcg and she has been tolerating this well. Anticipate possible discharge within the next 24 to 48 hours with concerns for discharge home as the patient has a who is suffering from severe dementia and Alzheimer's, and is unable to provide any assistance. She does have Home Health through [facility] and notes that she has her medications on an alarm clock and notes that sometimes when her p.r.n. alarm goes off instead of not taking the medicines as she feels like it is scheduled possibly contributing to her obtunded state. Will need to work closely with her primary care provider, Dr. Schmitt, and [facility] to address discharge planning with anticipation of discharging in the next 24 to 48 hours possibly needing more extensive Home Health or assisted living given that she has no assistance at home and is providing 100% of care for her . Until discharge, will continue to monitor closely and treat appropriately. #[id number] [facility]
[2016-06-27] MEDS ORDERED: cefTRIAXone SODIUM 1 GM VIAL ONE ×3 (01:39→19:52)
[2016-06-27] MEDS ORDERED: SODIUM CHLORIDE 0.9% 50ML 50 ML ONE (01:39)
[2016-06-27] MEDS: cefTRIAXone SODIUM 1 GM in SODIUM CHL 0.9% 50ML MIN-BAG+ 50 ML IVPB SCH ×2 (01:45→13:57)
[2016-06-27] MEDS: OMEPRAZOLE CAP 20 MG CAP PO SCH (06:15)
[2016-06-27] MEDS: LEVOTHYROXINE SODIUM 0.112 MG TAB PO SCH (06:15)
[2016-06-27] MEDS ORDERED: SODIUM CHL 0.9% 50ML MIN-BAG+ 50 ML IVPB ONE ×2 (07:31→19:51)
[2016-06-27] MEDS: LEVALBUTEROL NEBS 1.25 MG/3 ML VIAL INH SCH ×3 (07:50→20:11)
[2016-06-27] MEDS: ATENOLOL 25 MG TAB PO SCH (08:27)
[2016-06-27] MEDS: levETIRAcetam 250 MG TAB PO SCH ×2 (08:27→21:04)
[2016-06-27] MEDS: MELOXICAM 7.5 MG TAB PO SCH ×2 (08:27→21:03)
[2016-06-27] MEDS: GABAPENTIN 300 MG CAP PO SCH ×2 (08:27→21:03)
[2016-06-27] MEDS: predniSONE 5 MG TAB PO SCH (08:28)
[2016-06-27] MEDS: SODIUM CHLORIDE 0.9% (FLUSH) 10 ML SYG IV SCH ×3 (08:28→21:04)
--- NOTE | 2016-06-27 11:43 | RAD ---
EXAM DESCRIPTION: Chest,2 Views CLINICAL HISTORY: 81 years Female, R/O fluid on lungs COMPARISON: 25 June 2016 TECHNIQUE: PA/lateral FINDINGS: Mild persistent diffuse interstitial lung disease is observed. Its less pronounced than seen previously. The heart is within range of normal. There is considerable tortuosity in the descending thoracic aorta. Degenerative changes are seen in the thoracic spine. No pleural effusion is identified. A deeper respiratory effect is noted. IMPRESSION: Persistent bilateral interstitial lung disease is observed. There is been an interval improvement in aeration the chest since the previous exam. Electronically signed by: Reji Fernandez MD 06/27/2016 11:42 AM CDT
[2016-06-27] MEDS ORDERED: MAGNESIUM SULFATE PREMIX 2GM 2 GM in PREMIX BAG 1 BAG IVPB ONE (17:31)
[2016-06-27] MEDS ORDERED: MAGNESIUM SULFATE PREMIX 2GM 50 ML IVPB ONE (17:41)
--- NOTE | 2016-06-27 19:47 | PN ---
DATE: 06/27/16 SUPERVISING PHYSICIAN: Tony Freedman M.D. SUBJECTIVE: The patient continues to be alert. She is oriented this morning. She is not having any significant changes in regards to mental status and remains alert. Pain has been very well controlled with the decrease in amount of Fentanyl taking the Fentanyl patch from 100 to 50 mcg. OBJECTIVE: VITAL SIGNS: Temperature 98.6, pulse 73, blood pressure 144/75, respirations 18, O2 sat 95% on room air. I's and O's are not well documented as the patient is incontinent. She has had 2 bowel movements. Weight 49.7 kg. GENERAL: The patient is much more alert today, cooperative, conversing with her family. CHEST: Clear to auscultation bilaterally. HEART: Regular rate and rhythm. ABDOMEN: Soft, non-tender. Positive bowel sounds. EXTREMITIES: No clubbing, cyanosis or edema. NEUROLOGIC: She is alert and oriented times three. LABORATORY: White count shows to be 8.2, hemoglobin 11.3, hematocrit 33.0, platelet count 162,000. Differential shows to be within normal limits. Chemistries show a slightly low sodium at 133, potassium was normal at 3.8, BUN 9, creatinine 0.97, magnesium 1.3 on repeat yesterday after replacement of magnesium and continues to be low at 1.6. MICROBIOLOGY: Blood cultures remain negative after 48 hours. Sputum culture final results show moderate budding yeast. Urine culture shows no growth at 24 hours. RADIOLOGY: Repeat chest x-ray two view per radiology interpretation showed persistent bilateral interstitial lung disease. There has been interval improvement in the aeration of the chest since the previous exam on 06/25/16. ASSESSMENT: 1. Acute altered level of consciousness on admission with the patient having a history of recurrent episodes of altered level of consciousness oftentimes associated with behavioral changes and apnea showing dramatic improvement with the patient now close to baseline status after having modification of her pain regimen. 2. 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 3. Acute syncopal episode having spent the previous night before admission on the floor with no recall of how she arrived there more likely related to opioid induced encephalopathy. 4. Chronic pain in her back and hip regions for which she takes multiple analgesia contributing to number 1. 5. Dehydration showing improvement after IV therapy possibly contributing to some degree the altered mental status. 6. Mild hypokalemia with supplementation, resolved. 7. History of left bundle branch block as noted on EKG. 8. Frequent falls in the past secondary to number 1 and number 2. 9. Multiple Emergency Room admissions within the last week for similar episodes which then required admission to the hospital for further management. 10. Acute renal failure felt to be prerenal azotemia from dehydration, improved after IV rehydration. 11. Recurrent urinary tract infection with current cultures results pending and possibly contributing to or exacerbating number 1. 12. Chronic obstructive pulmonary disease in a chronic smoker without any significant signs of exacerbation with radiographic studies showing bilateral interstitial lung disease. 13. Hypomagnesemia requiring continuation of replacement showing slow improvement. PLAN: The patient will be continued on admission as she does show improvement. She has been working with Physical Therapy. She does have arrangements at home with Home [facility] and will need prior to discharge a Social consultation to ensure that the patient is discharging to a safe environment. Again, she does live with her who is suffering from advanced dementia and Alzheimer's. Until discharge, will continue to monitor the patient closely and treat appropriately. #[id number] [facility]
[2016-06-27] MEDS: ENOXAPARIN SODIUM 40 MG/0.4 ML SYG SUBCU SCH (21:04)
[2016-06-28] MEDS: cefTRIAXone SODIUM 1 GM in SODIUM CHL 0.9% 50ML MIN-BAG+ 50 ML IVPB SCH (01:52)
[2016-06-28] MEDS: OMEPRAZOLE CAP 20 MG CAP PO SCH (06:06)
[2016-06-28] MEDS: LEVOTHYROXINE SODIUM 0.112 MG TAB PO SCH (06:06)
[2016-06-28] MEDS: LEVALBUTEROL NEBS 1.25 MG/3 ML VIAL INH SCH (07:50)
[2016-06-28] MEDS: MELOXICAM 7.5 MG TAB PO SCH (09:17)
[2016-06-28] MEDS: ATENOLOL 25 MG TAB PO SCH (09:17)
[2016-06-28] MEDS: GABAPENTIN 300 MG CAP PO SCH (09:18)
[2016-06-28] MEDS: SODIUM CHLORIDE 0.9% (FLUSH) 10 ML SYG IV SCH (09:18)
[2016-06-28] MEDS: levETIRAcetam 250 MG TAB PO SCH (09:18)
[2016-06-28] MEDS: predniSONE 5 MG TAB PO SCH (09:18)
[2016-06-28 10:39] VITALS: BP 131/74; TEMP 98.1; O2SAT 95
[2016-06-28] MEDS: fentaNYL PATCH 50 MCG/HR 1 EA PATCH TD SCH (10:49)
--- NOTE | 2016-07-01 08:55 | DS ---
SUPERVISING PHYSICIAN: Christiano Samuels MD DISCHARGE DIAGNOSIS: 1. Acute altered level of consciousness on admission with the patient having a history of recurrent episodes of altered level of consciousness oftentimes associated with behavioral changes and apnea showing dramatic improvement with the patient now close to baseline status after having modification of her pain regimen. 2. 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 3. Acute syncopal episode having spent the previous night before admission on the floor with no recall of how she arrived there more likely related to opioid induced encephalopathy. 4. Chronic pain in her back and hip regions for which she takes multiple analgesia contributing to number 1. 5. Dehydration showing improvement after IV therapy possibly contributing to some degree the altered mental status. 6. Mild hypokalemia with supplementation, resolved. 7. History of left bundle branch block as noted on EKG. 8. History of falls in the past secondary to number 1 and number 2. 9. Multiple Emergency Room admissions within the last week for similar episodes which required admission to the hospital for further management. 10. Acute renal failure felt to be prerenal azotemia from dehydration, improved after IV rehydration therapy. 11. Recurrent urinary tract infections with current cultures on this admission showing no growth but possibly contributing to or exacerbating number 1. 12. Chronic obstructive pulmonary disease in a chronic smoker without any significant signs of exacerbation with radiographic studies showing a bilateral interstitial lung disease but no obvious infiltrative consolidative processes. 13. Hypomagnesemia showing improvement at time of discharge. HISTORY OF PRESENT ILLNESS: Ms. Jackson is a 81 year-old female patient who lives alone with her invalid who has fairly significant dementia. She apparently awakened the morning prior and found herself in the floor which was carpeted, and felt quite cold. She eventually told her family that she spent most of the night on the floor and did not remember getting there. She was very confused and very lethargic. She has a history of taking a lot of pain medications for chronic back pain and hip discomforts. She has a habit of having an alarm that goes off telling her that she is to take her medications but if she is not having that much pain, she will still take the pain pill as she feels she may need it or take it out and save it to the side and hide it and unfortunately, no one knows whether or not she had taken those medications when she feels she needs and which she could have been doubling up on but this is not known. She also has a Fentanyl 100 mcg every 72 hours. Of note, in 2008 she was admitted to the hospital with significant obtundation and at that time was on a 75 mcg Fentanyl patch. In 2011 she was on 100 mcg Fentanyl and both times she was admitted to the hospital with altered level of consciousness and somnolence. She slowly improved as some of her medications were withdrawn. at the time in the Emergency Room she was very sleepy and snoring and she was sleeping with her tongue blocking her airway. She breathes better when she is on her side. She was not moving in the bed and was significantly obtunded with altered level of consciousness. Significant behavioral changes and disorientation also present. In the Emergency Room, she had a CT scan of the head which failed to show any significant findings. Her neurologist, Dr. Loyola, had previously ordered an MRI of the head to be performed later in the week prior to admission and was also to be done as she was continued for evaluation and observation of the patient's significant decline. She has a history of chronic pain in her lower back as well as hip areas. She was in the Emergency Room 48 hours before her current admission, again suggesting repeat admissions to the Emergency Room and require ongoing followup in the hospital due to a significant underlying process. In the Emergency Room, she was also found to have a renal injury with worsening renal function and she is a chronic smoker, and there is a urinary tract infection which could be contributing to her significant obtunded state. She was admitted for treatment and evaluation and close monitoring. She was admitted to the medical/surgical floor in stable condition. LABORATORY: White count was normal at time of admission and discharge at 8.2. Hemoglobin and hematocrit were stable at 11.0 and 33.0. Initial hemoglobin though was slightly elevated at 13.2 and 40.8, again leading to the thought that she was somewhat dehydrated. At discharge, platelet count was 162,000, she was without a left shift and at time of discharge actually was within normal limits. Coagulation studies were within normal limits. Admission chemistry showed a low sodium of 132, this had improved after IV therapy and at discharge was 135. Her electrolytes were all within normal limits. Initial BUN was 28, creatinine 1.98 after initiation of therapy completion. At time of discharge, BUN was 8, creatinine 0.70. Initial osmolality was 269 and at discharge was 267. Calcium 8.7, magnesium initially was 1.5, after replacement at discharge it was 1.8. Liver functions showed to be within normal limits except for a slightly elevated CPK of 171, however, this resolved and normalized to 95 prior to discharge and IV fluids. Troponin was 0.04 initially on admission but had gone down after treatment and was at 0.03 after admission. Her initial urinalysis showed a dipstick with 100 of protein, small amount of bilirubin. Microscopic revealed 3 to 5 RBC, 5 to 10 WBC, 3+ amorphous, 1 to 3 epithelial cells and 3+ bacteria with a small amount of mucus. MICROBIOLOGY: Urine culture showed no growth at 48 hours. Sputum culture was also completed and showed a moderate amount of yeast. Blood cultures x2 showed no growth at 5 days. RADIOLOGY: Initially chest x-ray in the Emergency Department and per radiology interpretation, there was note of bilateral peripheral and basilar interstitial opacities, not significantly changed from a prior exam. Also was noted differential to include submental atelectasis scarring versus interstitial edema or infection, likely viral, no new abnormalities. She also had a head CT without contrast and per radiology interpretation showed senescent brain but no nondiagnostic acute abnormality. She had an x-ray of the left knee and per radiology interpretation showed moderate degenerative changes in the medial and patellofemoral compartments with tiny left joint effusion. CT of the head was followed up with a brain MRI and per radiology interpretation there was no acute intracranial abnormalities, just some mild chronic microangiopathy and mild volume loss. She had one chest x-ray after admission and prior to discharge which per radiology interpretation showed persistent bilateral interstitial lung disease with interval improvement in aeration of the chest from initial exam. HOSPITAL COURSE: Ms. Jackson was admitted as noted in the history of present illness for obtunded state. She was admitted to the floor. She was initiating with some Narcan, her Fentanyl patch was removed. She did show good response and on the morning after admission was alert and actually talking to her family. She did chronically well through her admission, was started on antibiotics for underlying urinary tract infection that included Rocephin. She was provided IV fluids for dehydration, showed good clinical improvement and was felt well enough to be discharged home as she did have arrangements at home for continuation of care as well as management of her medications with home health nursing. Therefore, she was to be discharged home. PLAN: The patient was discharged home to the care of her family and home health with [facility]. She was to have close followup with Dr. Schmitt and call his office on Friday after discharge and to get refills of her prescription for her Duragesic patch. She was to resume her home medications as directed with special attention to her pain medication regimen to prevent over-sedation. She was to continue her antibiotics as prescribed to completion of treatment for the underlying upper respiratory infection and encouraged fluids to prevent dehydration. Her Fentanyl patch was changed to 50 mcg for 72 hours and she was provided a new patch at time of discharge and require exchange on Friday after discharge. Again, she was to call Dr. Schmitt' office to get a refill of this. She was encouraged to return to the hospital should she have any return of symptoms or failure to improve. At time of discharge, she was provided prescription to include: 1. Ceftin 500 mg twice a day, #14. 2. Change her Fentanyl dosing to 50 mcg per hour. 3. Duragesic patch and she was given 1 patch at time of discharge to change at 72 hours with refill to be provided by Dr. Schmitt. The patient was discharged in stable condition. DIET: Resume usual diet as tolerated. ACTIVITY: She is to increase her activities as tolerated. #[id number] [facility]
== END 2016-06-28 10:59 | disposition home health service (06) | DRG 682 ==
LOC: ER 10:18 → MS 13:46
PROVIDERS: ADMIT Emergency Medicine; ATTEND Nurse Practitioner Family
DX: N17.9 Acute kidney failure, unspecified (principal); G92 Toxic encephalopathy; E87.1 Hypo-osmolality and hyponatremia; B37.49 Other urogenital candidiasis; E83.42 Hypomagnesemia; E87.6 Hypokalemia; E86.0 Dehydration; R29.6 Repeated falls; I44.7 Left bundle-branch block, unspecified; J44.9 Chronic obstructive pulmonary disease, unspecified; G89.29 Other chronic pain; M54.9 Dorsalgia, unspecified; I10 Essential (primary) hypertension; Z86.711 Personal history of pulmonary embolism; F32.9 Major depressive disorder, single episode, unspecified; M25.559 Pain in unspecified hip; T40.4X5A Adverse effect of other synthetic narcotics, initial encounter; Y92.003 Bedroom of unspecified non-institutional (private) residence as the place of occurrence of the external cause; F17.210 Nicotine dependence, cigarettes, uncomplicated; Z86.718 Personal history of other venous thrombosis and embolism; Z88.0 Allergy status to penicillin; Z79.891 Long term (current) use of opiate analgesic; Z79.52 Long term (current) use of systemic steroids; Z79.899 Other long term (current) drug therapy; Z86.73 Personal history of transient ischemic attack (TIA), and cerebral infarction without residual deficits

== ENCOUNTER → 2016-07-02 | Outpatient (CLI) | payer MEDICARE, OTHER | END | disposition home or self-care (01) | LOC: GMAL 14:14 | PROVIDERS: ATTEND Family Medicine | DX: N39.0 Urinary tract infection, site not specified (principal) ==

== ENCOUNTER → 2016-08-09 | Outpatient (CLI) | payer MEDICARE, OTHER | END | disposition home or self-care (01) | LOC: GMAL 11:35 | PROVIDERS: ATTEND Family Medicine | DX: N39.0 Urinary tract infection, site not specified (principal) ==

== ENCOUNTER → 2016-08-21 | Outpatient (CLI) | payer MEDICARE, OTHER | END | disposition home or self-care (01) | LOC: BFHH 15:06 | PROVIDERS: ATTEND Family Medicine | DX: R30.0 Dysuria (principal) ==

== ENCOUNTER → 2016-09-20 | Outpatient (CLI) | payer MEDICARE, OTHER | END | disposition home or self-care (01) | LOC: BFHH 08:32 | PROVIDERS: ATTEND Family Medicine | DX: I48.91 Unspecified atrial fibrillation (principal); I10 Essential (primary) hypertension; D64.9 Anemia, unspecified; E55.9 Vitamin D deficiency, unspecified; D51.8 Other vitamin B12 deficiency anemias; E78.4 Other hyperlipidemia; E03.9 Hypothyroidism, unspecified; D50.9 Iron deficiency anemia, unspecified; M81.0 Age-related osteoporosis without current pathological fracture ==

== ENCOUNTER → 2016-10-23 | Outpatient (CLI) | payer MEDICARE, OTHER | END | disposition home or self-care (01) | LOC: BFHH 12:23 | PROVIDERS: ATTEND Family Medicine | DX: D50.9 Iron deficiency anemia, unspecified (principal); I48.91 Unspecified atrial fibrillation ==

== ENCOUNTER → 2016-11-01 | Outpatient (CLI) | payer MEDICARE, OTHER ==
--- NOTE | 2016-11-03 07:26 | US ---
Procedure: US CAROTID DOPPLER BILATERAL Exam Date: 11/01/2016 12:00 AM CDT Ordering Provider: MILAGROS YE Clinical Indication: Carotid stenosis Comparison: None TECHNIQUE : Real-time cerebrovascular ultrasonography was obtained from sternal notch to the angle of the mandible bilaterally utilizing paul scale, color flow and spectral Doppler analysis. Systolic velocity ratios were calculated for internal carotid artery to common carotid artery bilaterally. FINDINGS: RIGHT CAROTID BIFURCATION: Mild atherosclerotic plaque. Peak systolic and end-diastolic velocities in the right internal carotid artery are 52 and 13 cm/s. Internal carotid/common carotid ratio is 1.0. Right vertebral flow is antegrade. LEFT CAROTID BIFURCATION: Mild atherosclerotic plaque. Peak systolic and end-diastolic velocities in the left internal carotid artery are 71 and 17 cm/s. Internal carotid/common carotid ratio is 1.4. Left vertebral flow is antegrade. IMPRESSION: 1. Mild atherosclerotic plaque in each carotid bulb and ICA origin. 2. There is no significant stenosis (16% of the right and 40% on the left) at both ICA origins. 3. Bilateral antegrade vertebral artery flow. Electronically signed by: Clem Bryant MD 11/03/2016 7:25 AM CDT
--- NOTE | 2016-11-03 07:33 | US ---
Procedure: US THYROID Exam Date: 11/01/2016 12:00 AM CDT Ordering Provider: MILAGROS YE Clinical Indication: Thyroid nodules Comparison: None Technique: Real-time ultrasonography was obtained of the thyroid gland and business services representative images were recorded. Findings: The right lobe of the thyroid gland measures 3.7 x 1.2 x 1.7 cm in CC, AP, and transverse dimensions. There are no nodules in the right lobe of the thyroid gland. The left lobe of the thyroid gland measures 2.2 x 1.7 x 0.7 cm in CC, AP, and transverse dimensions. There are no nodules in the left lobe of the thyroid gland The thyroid isthmus is of normal thickness. There are no nodules in the thyroid isthmus. Impression: Unremarkable thyroid ultrasound. No thyroid nodules appreciated. Electronically signed by: Clem Bryant MD 11/03/2016 7:31 AM CDT
--- NOTE | 2016-11-04 07:44 | US ---
EXAM DESCRIPTION: Extremity,Lower Romeo Arteries CLINICAL HISTORY: 81 years Female, ATHEROSCLEROSIS OF ARTERIES COMPARISON: None. FINDINGS: EXAM DESCRIPTION: Extremity,Lower Romeo Arteries CLINICAL HISTORY: 81 years, Female, ATHEROSCLEROSIS OF ARTERIES COMPARISON: None. FINDINGS: Multiphasic waveforms are noted in the right lower extremity arteries. Color Doppler images show no significant stenotic lesion. Peak systolic velocities in the right lower extremity as follows: Right common femoral artery 118 centimeters/second Proximal right superficial femoral artery 97 centimeters/second Mid right superficial femoral artery 95 centimeters/second Distal right superficial femoral artery 92 centimeters/second Right popliteal artery 56 centimeters/second Right posterior tibial artery 53 centimeters/second Right dorsalis pedis artery 22 centimeters/second Right peroneal artery 43 centimeters/second Multiphasic waveforms are noted in the left lower extremity arteries. Color Doppler images show no significant stenotic lesion. Peak systolic velocities in the left lower extremity as follows: Left common femoral artery 111 centimeters/second Proximal left superficial femoral artery 102 centimeters/second Mid left superficial femoral artery 90 centimeters/second Distal left superficial femoral artery 74 centimeters/second Left popliteal artery 58 centimeters/second Left posterior tibial artery 51 centimeters/second Left dorsalis pedis artery 18 centimeters/second Left peroneal artery 56 centimeters/second IMPRESSION: Negative exam. Multiphasic waveforms in the bilateral lower extremity arteries without evidence of hemodynamically significant stenosis. IMPRESSION: No focal high-grade arterial stenosis in either lower extremity. Electronically signed by: Geo Morrison MD 11/04/2016 7:43 AM CDT Workstation: [facility]
== END ==
LOC: US 09:02
PROVIDERS: ATTEND Family Medicine
DX: R09.89 Other specified symptoms and signs involving the circulatory and respiratory systems (principal); I70.209 Unspecified atherosclerosis of native arteries of extremities, unspecified extremity; E04.1 Nontoxic single thyroid nodule

== ENCOUNTER → 2016-11-20 | Outpatient (CLI) | payer MEDICARE, OTHER | LOC: BFHH 12:40 | PROVIDERS: ATTEND Family Medicine | DX: R30.0 Dysuria (principal) ==

== ENCOUNTER → 2016-12-26 | Outpatient (CLI) | payer MEDICARE, OTHER ==
--- NOTE | 2016-12-26 15:55 | CT ---
EXAM DESCRIPTION: Maxillofacial w/wo Contrast: CT CLINICAL HISTORY: RT SIDED JAW PAIN COMPARISON: None Available. TECHNIQUE: Spiral, axial 2.5 x 2.5 mm scans through the maxillofacial bones and neck soft tissues with standard dose nonionic IV contrast. Coronal and sagittal 2.0 mm reconstructions. No adverse contrast reactions. Total Exam DLP: 513.75 mGy-cm. This exam was performed according to our departmental CT dose-optimization program which includes automated exposure control, adjustment of the mA and/or kV according to patient size and/or use of iterative reconstruction technique; to reduce radiation dose to as low as reasonably achievable (ALARA). FINDINGS: Asymmetric density with minimal fatty stranding noted lateral to the left masseter muscle in the subcutaneous tissues measuring 11 x 6 mm in the axial plane and 12 mm craniocaudal. This is also partially involving the oncology rn fat. Minimal enhancement. Normal size density and enhancement of the masseter muscle. Bilateral parotid glands normal density and enhancement with no calcifications. Submandibular glands symmetric bilaterally. No abnormal lymph nodes in the parapharyngeal, parotid, or paracervical spaces. No effacement or mass effect in the nasopharyngeal or oropharyngeal airway. Perform sinuses and vallecula are not effaced or displaced. Left mastoid air cells internal auditory structures bilaterally are unremarkable. No abnormal fluid. Included paranasal sinuses are unremarkable. Bilateral ostiomeatal units are patent. IMPRESSION: 1. Minimally enhancing density lateral to the left masseter muscle and left mandible in the junction between the oncology rn fat and the subcutaneous adipose tissue. No abscess is seen. 2. No enlarged lymph nodes. Facial muscles and salivary glands normal size density and enhancement. No mass effect on the airway. Electronically signed by: Ronny Bridges MD 12/26/2016 3:54 PM CDT
== END | disposition home or self-care (01) ==
LOC: LAB.O 12:40
PROVIDERS: ATTEND Family Medicine
DX: R68.84 Jaw pain (principal); I10 Essential (primary) hypertension

== ENCOUNTER → 2017-01-01 | Outpatient (CLI) | payer MEDICARE, OTHER | END | disposition home or self-care (01) | LOC: BFHH 14:55 | PROVIDERS: ATTEND Family Medicine | DX: I48.91 Unspecified atrial fibrillation (principal); D50.9 Iron deficiency anemia, unspecified; I10 Essential (primary) hypertension ==

== ENCOUNTER 2017-01-04 01:26 | Emergency (ER) | payer MEDICARE, OTHER ==
[2017-01-04] MEDS ORDERED: methylPREDNISolone SODIUM SUC 125 MG/2 ML VIAL IV ONE (02:19)
[2017-01-04] MEDS ORDERED: SODIUM CHLORIDE 0.9% 1000ML 1,000 ML IVS ONE (02:19)
--- NOTE | 2017-01-04 02:24 | ED.PDOC ---
History of Present Illness - General Chief Complaint: Dental/Mouth Stated Complaint: chronic back pain, rt jaw nerve pain Time Seen by Provider: 01/04/17 01:56 Source: patient, RN notes reviewed, Vital Signs reviewed, family - Daughter Exam Limitations: no limitations - History of Present Illness Initial Comments: Daughter brings patient in with c/o R jaw pain. She has been having the pain for ~3 weeks along with her chronic back pain. She saw her doctor yesterday and was diagnosed with trigeminal neuralgia. Her Gabapentin and steroid doses were increased, starting today, so she has not had them yet. She also has been having a lot of nausea due to the pain and thus has not been eating or drinking well, especially yesterday. Son had some Zofran which she took prior to coming to the ER. She is currently sleeping which is a good thing per daughter thus most of the history was obtained from her daughter. She did wake up prior to examining her and her only c/o was that she was cold. Timing/Duration: constant - X 3 weeks Severity: severe Improving Factors: nothing - She takes Fentanyl patches, Hydrocodone and Morphine for her back pain and this is not helping her jaw pain Worsening Factors: nothing Associated Symptoms: loss of appetite, nausea/vomiting Allergies/Adverse Reactions: Allergies Rosuvastatin [From Crestor] Allergy (Severe, Verified 06/25/16 10:41) Other CI Pigment Blue 63 [From Cymbalta] Allergy (Intermediate, Verified 06/25/16 10: 41) Vomitting Duloxetine [From Cymbalta] Allergy (Intermediate, Verified 06/25/16 10:41) Vomitting Sulfa Antibiotics Allergy (Intermediate, Verified 06/25/16 10:41) Hives Penicillin G Allergy (Mild, Verified 06/25/16 10:41) Rash Ciprofloxacin Allergy (Verified 06/25/16 10:41) Varenicline [From Chantix] Adverse Reaction (Intermediate, Verified 06/25/16 10: 41) Vomitting Home Medications: Ambulatory Orders Gabapentin 300 mg PO BID 03/01/13 HYDROcodone 10MG/APAP 325MG [[place] 10/325] 10 - 325 mg PO TID 03/01/13 predniSONE [PredniSONE] 5 mg PO DAILY 03/01/13 Levothyroxine Sodium [Levoxyl] 1 each PO DAILY 09/14/14 Cyanocobalamin Inj [Vitamin B-12 Inj] 1,000 mcg IM MONTHLY 02/18/15 Atenolol [Tenormin] 25 mg PO DAILY 06/23/16 Cetirizine HCl 10 mg PO DAILY 06/23/16 Clopidogrel Bisulfate 75 mg PO BEDTIME 06/23/16 Cyanocobalamin [Vitamin B-12] 100 mcg PO DAILY 06/23/16 Diphenoxylate/Atropine [Lomotil Tab] 2.5 mg PO Q6HRS PRN 06/23/16 Doxycycline Hyclate 100 mg PO DAILY 06/23/16 Fluoxetine HCl [Prozac] 40 mg PO DAILY 06/23/16 Levetiracetam [Keppra] 1,000 mg PO BEDTIME 06/23/16 Meclizine HCl 25 mg PO Q6HR PRN 06/23/16 Megestrol Acetate [Megace Oral] 2.5 ml PO DAILY 06/23/16 Meloxicam [Mobic] 7.5 mg PO BID 06/23/16 Misc Natural Products [Colon Herbal Cleanser] 1 cap PO DAILY 06/23/16 Omeprazole [Prilosec Cap] 40 mg PO DAILY 06/23/16 Cefuroxime Axetil [Ceftin] 500 mg PO BID #14 tab 06/28/16 fentaNYL PATCH 50 MCG/HR [Duragesic Patch 50 MCG/HR] 1 ea TD Q72H #1 patch 06/28 Ondansetron Odt (ER Disp) [Zofran ODT (ER DISP)] 8 mg PO ONCE #1 tablet Ondansetron Odt [Zofran ODT] 8 mg PO Q6HR PRN #20 tab 01/04/17 Review of Systems - Review of Systems Constitutional: States: malaise EENTM: States: see HPI Respiratory: States: no symptoms reported Cardiology: States: no symptoms reported Gastrointestinal/Abdominal: States: see HPI, nausea, vomiting. Denies: abdominal pain Neurological: States: see HPI All other Systems: No Change from Baseline Past Medical History (General) - Patient Medical History Hx Seizures: Yes - in past Hx Stroke: Yes - possible in last two weeks Hx Asthma: No Hx of COPD: Yes Hx Cardiac Disorders: Yes - DVT, PE Hx Congestive Heart Failure: No Hx Pacemaker: No Hx Hypertension: Yes Hx Thyroid Disease: Yes Hx Diabetes: No Hx Hepatitis C: No Hx MRSA: No Surgical History: Hysterectomy - Vaccination History Hx Influenza Vaccination: No Hx Pneumococcal Vaccination: Yes - Social History Hx Tobacco Use: Yes - continue to smoke Hx Alcohol Use: No Hx Substance Use: No Hx Physical Abuse: No Hx Emotional Abuse: No - Female History Patient is a Female of Child Bearing Age (10 -59 yrs old): No Patient : Yes - Triage Comment ED Triage Comment: saw family Dr today for rt jaw pain, told not sure of cause, possibly nerve related. Nauseated due to pain per pt Family Medical History - Family History Mother Living Status: Hx Family Congestive Heart Failure: Yes - mom Hx Family Hypertension: Yes - dad Hx Family Diabetes: Yes - dad Hx Family Cancer: Yes - multiple family members-brain,gastric Physical Exam - Physical Exam General Appearance: Alert, Frail, No apparent distress, Well Developed, Well Groomed Neck: supple, normal inspection Respiratory: lungs clear, normal breath sounds, no respiratory distress, no accessory muscle use Cardiovascular/Chest: regular rate, rhythm, no gallop, no murmur Extremity: normal range of motion, non-tender, normal inspection Neurologic: alert, normal mood/affect, oriented x 3 Skin Exam: normal color, warm/dry Comments: Vital Signs 01/04/17 01:35 Temperature 97.5 F L Pulse Rate [ 64 Right] Respiratory 16 Rate Blood Pressure 155/75 [Left Arm] O2 Sat by Pulse 97 Oximetry Progress - Progress Progress: 01/04/17 02:26 Will give NS bolus and Solu-Medrol 125mg IV Had long discussion about trigeminal neuralgia with daughter. 01/04/17 03:42 Patient is sleeping again. NS bolus is done. Will d/c home with Rx for Zofran Departure - Departure Clinical Impression: Trigeminal neuralgia of right side of face Time of Disposition: 03:42 Disposition: Discharge to Home or Self Care Condition: Good Departure Forms: ED Discharge - Pt. Copy, Patient Portal Self Enrollment Instructions: DI for Trigeminal Neuralgia Diet: resume usual diet Activity: increase activity as tolerated Referrals: Reji Schmitt III, MD [Primary Care Provider] - 1-2 Weeks Prescriptions: Ondansetron Odt [Zofran ODT] 8 mg PO Q6HR PRN #20 tab PRN Reason: Nausea/Vomiting Ondansetron Odt (ER Disp) [Zofran ODT (ER DISP)] 8 mg PO ONCE #1 tablet Home Medications: Ambulatory Orders Gabapentin 300 mg PO BID 03/01/13 HYDROcodone 10MG/APAP 325MG [[place] 10/325] 10 - 325 mg PO TID 03/01/13 predniSONE [PredniSONE] 5 mg PO DAILY 03/01/13 Levothyroxine Sodium [Levoxyl] 1 each PO DAILY 09/14/14 Cyanocobalamin Inj [Vitamin B-12 Inj] 1,000 mcg IM MONTHLY 02/18/15 Atenolol [Tenormin] 25 mg PO DAILY 06/23/16 Cetirizine HCl 10 mg PO DAILY 06/23/16 Clopidogrel Bisulfate 75 mg PO BEDTIME 06/23/16 Cyanocobalamin [Vitamin B-12] 100 mcg PO DAILY 06/23/16 Diphenoxylate/Atropine [Lomotil Tab] 2.5 mg PO Q6HRS PRN 06/23/16 Doxycycline Hyclate 100 mg PO DAILY 06/23/16 Fluoxetine HCl [Prozac] 40 mg PO DAILY 06/23/16 Levetiracetam [Keppra] 1,000 mg PO BEDTIME 06/23/16 Meclizine HCl 25 mg PO Q6HR PRN 06/23/16 Megestrol Acetate [Megace Oral] 2.5 ml PO DAILY 06/23/16 Meloxicam [Mobic] 7.5 mg PO BID 06/23/16 Misc Natural Products [Colon Herbal Cleanser] 1 cap PO DAILY 06/23/16 Omeprazole [Prilosec Cap] 40 mg PO DAILY 06/23/16 Cefuroxime Axetil [Ceftin] 500 mg PO BID #14 tab 06/28/16 fentaNYL PATCH 50 MCG/HR [Duragesic Patch 50 MCG/HR] 1 ea TD Q72H #1 patch 06/28 Ondansetron Odt (ER Disp) [Zofran ODT (ER DISP)] 8 mg PO ONCE #1 tablet Ondansetron Odt [Zofran ODT] 8 mg PO Q6HR PRN #20 tab 01/04/17
[2017-01-04 02:34] VITALS: O2SAT 95
[2017-01-04] MEDS ORDERED: ONDANSETRON ODT (ER DISP) 8 MG TAB PO ONE (03:46)
[2017-01-04 03:57] VITALS: BP 142/76; TEMP 97.9
== END 2017-01-04 03:57 | disposition home or self-care (01) ==
LOC: ER 01:26
DX: G50.0 Trigeminal neuralgia (principal); G89.29 Other chronic pain; M54.9 Dorsalgia, unspecified; J44.9 Chronic obstructive pulmonary disease, unspecified; Z79.899 Other long term (current) drug therapy; Z88.0 Allergy status to penicillin; Z88.2 Allergy status to sulfonamides; Z86.718 Personal history of other venous thrombosis and embolism; Z86.711 Personal history of pulmonary embolism
CPT/HCPCS: J2930; J7030

== ENCOUNTER → 2017-01-14 | Outpatient (CLI) | payer MEDICARE, OTHER ==
--- NOTE | 2017-01-15 09:43 | MRI ---
EXAM DESCRIPTION: Brain w/oContrast CLINICAL HISTORY: Headaches dizziness and instability when walking. Left side scalp numbness COMPARISON: June 25, 2016 TECHNIQUE: Non contrast MRI of the brain is performed according to our usual protocol including multiplanar multi sequence technique. FINDINGS: MRI the brain is normal. Ventricles and sulci have a normal appearance. There is no mass or hemorrhage. Significant chronic periventricular and subcortical leukomalacia is present with multifocal areas of increased T2/FLAIR signal intensity in those regions. No MRI evidence of acute or subacute ischemia. The diffusion images are normal. Flow voids are noted in all major intracranial arteries and dural sinuses. The visualized paranasal sinuses and mastoids are clear. IMPRESSION: Advanced chronic small vessel ischemia, no acute process observed. Electronically signed by: Nestor Huynh MD 01/15/2017 9:42 AM CDT
== END | disposition home or self-care (01) ==
LOC: MRI 13:07
PROVIDERS: ATTEND Family Medicine
DX: R51 Headache (principal)

== ENCOUNTER → 2017-01-22 | Outpatient (CLI) | payer MEDICARE, OTHER | END | disposition home or self-care (01) | LOC: BFHH 09:42 | PROVIDERS: ATTEND Family Medicine | DX: I48.91 Unspecified atrial fibrillation (principal); I10 Essential (primary) hypertension; E55.9 Vitamin D deficiency, unspecified ==

== ENCOUNTER → 2017-01-29 | Outpatient (CLI) | payer MEDICARE, OTHER | END | disposition home or self-care (01) | LOC: GMA 17:08 | PROVIDERS: ATTEND Physician Assistant | DX: M79.89 Other specified soft tissue disorders (principal); R06.02 Shortness of breath ==

== ENCOUNTER 2017-02-05 11:37 | Inpatient (IN) | payer MEDICARE, OTHER ==
--- NOTE | 2017-02-05 12:22 | ED.PDOC ---
History of Present Illness - General Chief Complaint: Neuro Symptoms/Deficits Stated Complaint: lethargy,decreased responsiveness Time Seen by Provider: 02/05/17 12:11 Source: patient, RN notes reviewed, Vital Signs reviewed, family - son Exam Limitations: no limitations - History of Present Illness Initial Comments: Son brought patient to ER due to having a hard time waking her up this morning. Patient denies any symptoms. Son reports she has been to see her doctor 3 times in the past 10 days. Yesterday they took her off her Gabapentin and switched her to Trileptal. She is also currently on antibiotics for a dental infection and an upper respiratory infection. Timing/Duration: 4-6 hours Severity: moderate Improving Factors: nothing Worsening Factors: nothing Associated Symptoms: denies symptoms Allergies/Adverse Reactions: Allergies Rosuvastatin [From Crestor] Allergy (Severe, Verified 06/25/16 10:41) Other CI Pigment Blue 63 [From Cymbalta] Allergy (Intermediate, Verified 06/25/16 10: 41) Vomitting Duloxetine [From Cymbalta] Allergy (Intermediate, Verified 06/25/16 10:41) Vomitting Sulfa Antibiotics Allergy (Intermediate, Verified 06/25/16 10:41) Hives Penicillin G Allergy (Mild, Verified 06/25/16 10:41) Rash Ciprofloxacin Allergy (Verified 06/25/16 10:41) Varenicline [From Chantix] Adverse Reaction (Intermediate, Verified 06/25/16 10: 41) Vomitting Home Medications: Ambulatory Orders Gabapentin 300 mg PO BID 03/01/13 HYDROcodone 10MG/APAP 325MG [[place] 10/325] 10 - 325 mg PO TID 03/01/13 predniSONE [PredniSONE] 5 mg PO DAILY 03/01/13 Levothyroxine Sodium [Levoxyl] 1 each PO DAILY 09/14/14 Cyanocobalamin Inj [Vitamin B-12 Inj] 1,000 mcg IM MONTHLY 02/18/15 Atenolol [Tenormin] 25 mg PO DAILY 06/23/16 Cetirizine HCl 10 mg PO DAILY 06/23/16 Clopidogrel Bisulfate 75 mg PO BEDTIME 06/23/16 Cyanocobalamin [Vitamin B-12] 100 mcg PO DAILY 06/23/16 Diphenoxylate/Atropine [Lomotil Tab] 2.5 mg PO Q6HRS PRN 06/23/16 Doxycycline Hyclate 100 mg PO DAILY 06/23/16 Fluoxetine HCl [Prozac] 40 mg PO DAILY 06/23/16 Levetiracetam [Keppra] 1,000 mg PO BEDTIME 06/23/16 Meclizine HCl 25 mg PO Q6HR PRN 06/23/16 Megestrol Acetate [Megace Oral] 2.5 ml PO DAILY 06/23/16 Meloxicam [Mobic] 7.5 mg PO BID 06/23/16 Misc Natural Products [Colon Herbal Cleanser] 1 cap PO DAILY 06/23/16 Omeprazole [Prilosec Cap] 40 mg PO DAILY 06/23/16 Cefuroxime Axetil [Ceftin] 500 mg PO BID #14 tab 06/28/16 fentaNYL PATCH 50 MCG/HR [Duragesic Patch 50 MCG/HR] 1 ea TD Q72H #1 patch 06/28 Ondansetron Odt (ER Disp) [Zofran ODT (ER DISP)] 8 mg PO ONCE #1 tablet Ondansetron Odt [Zofran ODT] 8 mg PO Q6HR PRN #20 tab 01/04/17 Review of Systems - Review of Systems Constitutional: States: see HPI, malaise EENTM: States: no symptoms reported Respiratory: States: no symptoms reported Cardiology: States: no symptoms reported Gastrointestinal/Abdominal: States: no symptoms reported Musculoskeletal: States: no symptoms reported Skin: States: no symptoms reported Neurological: States: see HPI All other Systems: No Change from Baseline Past Medical History (General) - Patient Medical History Hx Seizures: Yes - in past Hx Stroke: Yes - possible in last two weeks Hx Asthma: No Hx of COPD: Yes Hx Cardiac Disorders: Yes - DVT, PE Hx Congestive Heart Failure: No Hx Pacemaker: No Hx Hypertension: Yes Hx Thyroid Disease: Yes Hx Diabetes: No Hx Hepatitis C: No Hx MRSA: No - Vaccination History Hx Influenza Vaccination: Yes Hx Pneumococcal Vaccination: Yes - Social History Hx Tobacco Use: Yes Hx Alcohol Use: No Hx Substance Use: No Hx Physical Abuse: No Hx Emotional Abuse: No - Female History Patient : Yes Family Medical History - Family History Mother Living Status: Hx Family Congestive Heart Failure: Yes - mom Hx Family Hypertension: Yes - dad Hx Family Diabetes: Yes - dad Hx Family Cancer: Yes - multiple family members-brain,gastric Physical Exam - Physical Exam General Appearance: Comfortable, Frail, No apparent distress, Lethargic - easily arrousable and answers questions appropriately., Well Groomed Eye Exam: bilateral normal Ears, Nose, Throat: hearing grossly normal Neck: supple, normal inspection Respiratory: lungs clear, normal breath sounds, no respiratory distress, no accessory muscle use Cardiovascular/Chest: regular rate, rhythm, no edema, no gallop, no murmur Gastrointestinal/Abdominal: normal bowel sounds, non tender, soft Extremity: normal range of motion, normal inspection Neurologic: alert, normal mood/affect, oriented x 3 Skin Exam: normal color, warm/dry Comments: Vital Signs 02/05/17 12:04 Temperature 97.9 F Pulse Rate [ 67 Right Brachial] Respiratory 20 Rate Blood Pressure 149/85 [Left Arm] O2 Sat by Pulse 93 L Oximetry Progress - Progress Progress: 02/05/17 12:57 Discussed with Boo Lewis, Hospitalist. Will admit for hyopnatremia. Departure - Departure Clinical Impression: Dehydration with hyponatremia Time of Disposition: 12:57 Disposition: Admit Patient Condition: Poor Departure Forms: ED Discharge - Pt. Copy, Patient Portal Self Enrollment Referrals: Reji Schmitt III, MD [Primary Care Provider] - 1-2 Weeks Home Medications: Ambulatory Orders Gabapentin 300 mg PO BID 03/01/13 HYDROcodone 10MG/APAP 325MG [[place] 10/325] 10 - 325 mg PO TID 03/01/13 predniSONE [PredniSONE] 5 mg PO DAILY 03/01/13 Levothyroxine Sodium [Levoxyl] 1 each PO DAILY 09/14/14 Cyanocobalamin Inj [Vitamin B-12 Inj] 1,000 mcg IM MONTHLY 02/18/15 Atenolol [Tenormin] 25 mg PO DAILY 06/23/16 Cetirizine HCl 10 mg PO DAILY 06/23/16 Clopidogrel Bisulfate 75 mg PO BEDTIME 06/23/16 Cyanocobalamin [Vitamin B-12] 100 mcg PO DAILY 06/23/16 Diphenoxylate/Atropine [Lomotil Tab] 2.5 mg PO Q6HRS PRN 06/23/16 Doxycycline Hyclate 100 mg PO DAILY 06/23/16 Fluoxetine HCl [Prozac] 40 mg PO DAILY 06/23/16 Levetiracetam [Keppra] 1,000 mg PO BEDTIME 06/23/16 Meclizine HCl 25 mg PO Q6HR PRN 06/23/16 Megestrol Acetate [Megace Oral] 2.5 ml PO DAILY 06/23/16 Meloxicam [Mobic] 7.5 mg PO BID 06/23/16 Misc Natural Products [Colon Herbal Cleanser] 1 cap PO DAILY 06/23/16 Omeprazole [Prilosec Cap] 40 mg PO DAILY 06/23/16 Cefuroxime Axetil [Ceftin] 500 mg PO BID #14 tab 06/28/16 fentaNYL PATCH 50 MCG/HR [Duragesic Patch 50 MCG/HR] 1 ea TD Q72H #1 patch 06/28 Ondansetron Odt (ER Disp) [Zofran ODT (ER DISP)] 8 mg PO ONCE #1 tablet Ondansetron Odt [Zofran ODT] 8 mg PO Q6HR PRN #20 tab 01/04/17 Decision To Admit - Decistion To Admit Decision to Admit Reason: Admit from ER Decision to Admit Date: 02/05/17 Decision to Admit Time: 12:56
[2017-02-05] MEDS ORDERED: SODIUM CHLORIDE 0.9% 1000ML 1,000 ML IVS ONE (12:45)
[2017-02-05] MEDS ORDERED: SOD CHL 3% *HYPERTONIC* 500ML 500 ML IVS ONE (13:06)
--- NOTE | 2017-02-05 13:21 | HP ---
SUPERVISING PHYSICIAN: Tony Freedman M.D. CHIEF COMPLAINT: Lethargy with some decreased responsiveness. HISTORY OF PRESENT ILLNESS: Ms. Jackson is a 81 year-old female patient that presented to the Emergency Department today by her son as he noted that he was having a hard time waking his mother up this morning. On admission , the patient denied any symptoms. The patient did note that she has been seeing the doctor 3 times in the past 10 days. She has a history of recently being diagnosed with trigeminal neuralgia and having been on Trileptal, Keppra and Gabapentin. Initially she was started on Trileptal in December to January 15 and then switched to Gabapentin and Keppra. She was brought to the clinic at [facility] yesterday and was seen for similar symptoms at which time Gabapentin was stopped and she was continued on the Trileptal and Keppra. She has also reported that she was started on antibiotics for a dental infection as well as respiratory infection. She does have a significant history of chronic back pain and rheumatoid arthritis for which she takes multiple analgesics to include a Fentanyl patch 50 mcg as well as p.r.n. morphine. Her laboratory studies shows she was hyponatremic with sodium 120. Review of past medical records show that sodium has been within normal limits. Other electrolytes showed to be within normal limits as well as BUN and creatinine with BUN 9, creatinine 0.53. Serum osmolality was low at 238. Urinalysis completed shows a specific gravity of 1.015 with dipstick showing positive for nitrites and trace blood with microscopic showing 3 to 5 WBCs with 1+ bacteria, [address] Amaya, E. R. physician, requested that the patient be admitted to the hospital for treatment of her hyponatremia as well as close monitoring given the decreased level of consciousness the patient has experienced given that she is on multiple medications that are known to decrease central nervous system levels. She was given initially 3% saline in the Emergency Department and then admitted to the Medical/Surgical floor in stable condition. PAST MEDICAL HISTORY: 1. Chronic diarrhea. 2. History of deep venous thrombosis and pulmonary embolism. 3. History of chronic depression. 4. Chronic back pain for which she take multiple analgesics. 5. History of a possible cerebrovascular accident, nonhemorrhagic event in the past having made fairly good recovery. 6. History of rheumatoid arthritis. 7. History of diverticulitis. 8. Right sided trigeminal neuralgia. PAST SURGICAL HISTORY: 1. Appendectomy. 2. Hysterectomy. CURRENT MEDICATIONS: 1. Morphine 30 mg b.i.d. as needed. 2. Prilosec 40 mg at bedtime. 3. Vitamin D3 5,000 units daily. 4. Prednisone 5 mg daily. 5. Fentanyl patch 50 mcg per hour 1 ever 72 hours. 6. Oxcarbazepine 150 mg b.i.d. 7. Mobic 7.5 mg twice daily. 8. Megace oil 2.5 mL daily. 9. Meclizine 25 mg every 6 hours as needed. 10. Levothyroxine 1 tablet daily. 11. Keppra 1,000 mg at bedtime. 12. [place] 10/325 one 3 times a day as needed. 13. Prozac 40 mg daily. 14. Lomotil tablet 2.5 mg every 6 hours as needed. 15. Vitamin B12 injections 1,000 mcg IM monthly. 16. Vitamin B12 100 mcg daily. 17. Plavix 75 mg at bedtime. ALLERGIES: CRESTOR, CYMBALTA, SULFA ANTIBIOTICS, PENICILLIN G, CIPROFLOXACIN AND CHANTIX. FAMILY HISTORY: Positive for cancer, coronary artery disease, high blood pressure and diabetes. SOCIAL HISTORY: The patient lives in [place], [place]. She is . She lives close to her son who is retired. She has been a heavy smoker in the past. She denies any illicit drugs or alcohol use. REVIEW OF SYSTEMS: CONSTITUTIONAL: General malaise as noted in History of Present Illness. HEENT: Denies any headaches or vision changes. RESPIRATORY: Denies any shortness of breath, wheezing, coughing or exertional dyspnea. CARDIOVASCULAR: Denies any chest pains, palpitations or syncopal episodes. GASTROINTESTINAL: No reported nausea, vomiting, diarrhea or constipation or any other bowel habit changes. GENITOURINARY: She denied any dysuria, hematuria or other urinary symptoms. NEUROLOGIC: As per history of present illness. Denies any syncopal episodes. PHYSICAL EXAMINATION: VITAL SIGNS: Temperature 98.2, pulse 73, blood pressure 145/80, respirations 19 , satting 96% on room air. Admission weight is 57.1 kg. GENERAL: The patient appears to be comfortable but very frail. She is in no distress. She is somewhat lethargic but easily arousable and awakens to answer questions appropriately. She is moving all extremities ad donny and is alert and oriented times three. HEENT: Tympanic membranes are clear bilaterally. Oropharynx is pink and moist with no lesions. NECK: Supple, non-tender with full range of motion. No jugular venous distention. CHEST: Lungs are clear to auscultation bilaterally without any rhonchi, wheezing or rales. CARDIOVASCULAR: Regular rate and rhythm without appreciable murmurs, gallops, or rubs. ABDOMEN: Soft, non-tender. Positive bowel sounds. EXTREMITIES: No clubbing, cyanosis or edema. NEUROLOGIC: She was alert and oriented times three. Facial features were symmetrical. Extraocular movements were within normal limits. LABORATORY: CBC showed white count 8,600 with hemoglobin 12.8, hematocrit 37.2 , platelet count 216,000. Differential does show a start of an early left shift. Chemistries showed sodium 120, potassium 3.7, BUN 9, creatinine 0.53, anion gap was normal at 9.7 with carbon dioxide 29, glucose 86, serum osmolality was low at 238, calcium 8.5. Liver functions showed to be within normal limits. Urinalysis again showed trace of blood with positive nitrites. Dipstick showing a small leukocyte esterase with microscopic showing 3 to 5 WBCs. No epithelials. No RBCs with just 1+ bacteria. MICROBIOLOGY: Urine specimen for culture is pending. RADIOLOGY: No radiographic studies are pending. ASSESSMENT: 1. Acute altered level of consciousness felt to be secondary to hyponatremia. 2. Electrolyte imbalance with hyponatremia secondary to medication regimen to include Trileptal, Keppra and Gabapentin. 3. Mild opioid induced encephalopathy secondary to significant doses of opioid analgesics exacerbated by a combination of Trileptal, Keppra and Gabapentin for treatment of underlying trigeminal neuralgia. 4. Recent diagnosis of trigeminal neuralgia started on Trileptal, Gabapentin having been on Keppra previously. 5. Urinary tract infection requiring initiation of parenteral antibiotics with the patient having some mild confusion with some exacerbation for underlying hyponatremia. 6. History of chronic pain in her back and hip regions for which she takes multiple analgesic preparations to include morphine and Fentanyl. 7. Chronic obstructive pulmonary disease in a chronic smoker. 8. History of deep venous thrombosis and pulmonary embolism. 9. History of chronic depression on medication to include Prozac. 10. History of possible cerebrovascular nonhemorrhagic events currently on Plavix. 11. History of past diverticulitis. PLAN: The patient will be admitted to the Medical/Surgical floor for ongoing treatment and evaluation and close monitoring. She will have neuro checks every 4 hours. In regards to the home medication list, will update as verified by this point. Will plan to hold the Trileptal and Gabapentin, and continue with Keppra. She does have a Fentanyl patch in place as well as has been known to use morphine p.r.n. which will closely monitor as needed. In regards to the hyponatremia, will place her on a fluid restrictions 1500 mL of fluid for a 24 hour period as well as given her 20 of Lasix IV for gentle diuresis to assist with correction of the underlying hyponatremia. The 3% saline was infused for a total of 100 mL which was discontinued upon admission to the Medical/Surgical floor. Will anticipate length of stay to be at least 2 to 3 days until clinically stable. Will continue to monitor and treat appropriately. [facility][id number] [facility]
[2017-02-05] MEDS ORDERED: SODIUM CHLORIDE 0.9% (FLUSH) 10 ML SYG IV PRN (15:33)
[2017-02-05] MEDS ORDERED: FUROSEMIDE INJ 20 MG/2 ML VIAL IV ONE (15:40)
[2017-02-05] MEDS ORDERED: HYDROcodone 10MG/APAP 325MG 1 EA TAB PO PRN (15:41)
[2017-02-05] MEDS ORDERED: CYANOCOBALAMIN INJ 1,000 MCG/ML INJ IM SCH (16:00)
[2017-02-05] MEDS ORDERED: IV SET AND CAP CHANGE INJ INJ SCH (16:00)
[2017-02-05] MEDS ORDERED: FUROSEMIDE INJ 20 MG/2 ML VIAL ONE (16:43)
[2017-02-05] MEDS: fentaNYL PATCH 50 MCG/HR 1 EA PATCH TD SCH (16:44)
[2017-02-05] MEDS: KCL 20 MEQ/NS 1,000 ML IVS PRN (16:45)
[2017-02-05] MEDS ORDERED: SODIUM CHL 0.9% 50ML MIN-BAG+ 50 ML IVPB ONE (19:23)
[2017-02-05] MEDS ORDERED: cefTRIAXone SODIUM 1 GM VIAL ONE (19:23)
[2017-02-05] MEDS: cefTRIAXone SODIUM 1 GM in SODIUM CHL 0.9% 50ML MIN-BAG+ 50 ML IVPB SCH (19:25)
[2017-02-05] MEDS ORDERED: PRAVASTATIN SODIUM 20 MG TAB ONE (19:32)
[2017-02-05] MEDS ORDERED: CLOPIDOGREL 75 MG TAB ONE (19:32)
[2017-02-05] MEDS ORDERED: MELOXICAM 7.5 MG TAB ONE (19:32)
[2017-02-05] MEDS ORDERED: levETIRAcetam 250 MG TAB ONE (19:32)
[2017-02-05] MEDS: ACETAMINOPHEN 325 MG TAB PO PRN (19:56)
[2017-02-05] MEDS: levETIRAcetam 250 MG TAB PO SCH (20:54)
[2017-02-05] MEDS: CLOPIDOGREL 75 MG TAB PO SCH (20:54)
[2017-02-05] MEDS: MELOXICAM 7.5 MG TAB PO SCH (20:54)
[2017-02-05] MEDS: OMEPRAZOLE CAP 20 MG CAP PO SCH (20:58)
[2017-02-05] MEDS: SODIUM CHLORIDE 0.9% (FLUSH) 10 ML SYG IV SCH (20:59)
--- NOTE | 2017-02-05 21:17 | PCM.CORE ---
Physician DVT/VTE - Nurse DVT Assessment & Total Each Risk Factor Represents 3 Points: Age over 75 years Each Risk Factor Represents 1 Point: Hx of smoking past year Each Risk Factor is 1 Point: Serious Lung disease (pnemonia <1month, COPD, emphysema,etc) DVT Assessment Score: 5 - 5 or more Very High Risk Treatments: Early Ambulation *, Sequential Compression Device Pharmacological: Enoxaparin 40mg SQ Daily
[2017-02-06] MEDS ORDERED: LEVOTHYROXINE SODIUM 0.112 MG TAB ONE (03:59)
[2017-02-06] MEDS: KCL 20 MEQ/NS 1,000 ML IVS PRN ×2 (05:36→18:08)
[2017-02-06] MEDS: LEVOTHYROXINE SODIUM 0.112 MG TAB PO SCH (06:36)
[2017-02-06] MEDS ORDERED: ATENOLOL 25 MG TAB ONE (07:14)
[2017-02-06] MEDS ORDERED: predniSONE 5 MG TAB ONE (07:15)
[2017-02-06] MEDS ORDERED: FLUoxetine HCL 20 MG CAP ONE (07:15)
[2017-02-06] MEDS ORDERED: ENOXAPARIN SODIUM 40 MG/0.4 ML SYG SUBCU ONE (07:15)
[2017-02-06] MEDS ORDERED: TIOTROPIUM INHALER INH ONE (08:10)
[2017-02-06] MEDS: ENOXAPARIN SODIUM 40 MG/0.4 ML SYG SUBCU SCH (08:50)
[2017-02-06] MEDS: ATENOLOL 25 MG TAB PO SCH (08:50)
[2017-02-06] MEDS: FLUoxetine HCL 20 MG CAP PO SCH (08:50)
[2017-02-06] MEDS: SODIUM CHLORIDE 0.9% (FLUSH) 10 ML SYG IV SCH ×2 (08:51→20:47)
[2017-02-06] MEDS: MELOXICAM 7.5 MG TAB PO SCH ×2 (08:51→20:47)
[2017-02-06] MEDS: predniSONE 5 MG TAB PO SCH (08:51)
[2017-02-06] MEDS: CHOLECALCIFEROL 2,000 IU TAB PO SCH (08:54)
[2017-02-06] MEDS ORDERED: CYANOCOBALAMIN 1,000 MCG TAB PO SCH (09:00)
[2017-02-06] MEDS ORDERED: FUROSEMIDE INJ 20 MG/2 ML VIAL IV ONE (09:00)
[2017-02-06] MEDS: MEGESTROL ACETATE SUSP 400 MG/10 ML UD PO SCH (09:03)
[2017-02-06] MEDS: [UNRECOGNIZED DRUG - REMARK] INH SCH (09:44)
[2017-02-06] MEDS: ACETAMINOPHEN 325 MG TAB PO PRN (10:53)
[2017-02-06] MEDS ORDERED: SODIUM CHL 0.9% 50ML MIN-BAG+ 50 ML IVPB ONE (17:44)
[2017-02-06] MEDS ORDERED: cefTRIAXone SODIUM 1 GM VIAL ONE (17:44)
[2017-02-06] MEDS: cefTRIAXone SODIUM 1 GM in SODIUM CHL 0.9% 50ML MIN-BAG+ 50 ML IVPB SCH (18:09)
[2017-02-06] MEDS: levETIRAcetam 250 MG TAB PO SCH (20:46)
[2017-02-06] MEDS: CLOPIDOGREL 75 MG TAB PO SCH (20:47)
[2017-02-06] MEDS: OMEPRAZOLE CAP 20 MG CAP PO SCH (20:47)
[2017-02-07] MEDS: LEVOTHYROXINE SODIUM 0.112 MG TAB PO SCH (06:15)
[2017-02-07] MEDS: KCL 20 MEQ/NS 1,000 ML IVS PRN (06:50)
[2017-02-07] MEDS: [UNRECOGNIZED DRUG - REMARK] INH SCH (08:36)
[2017-02-07] MEDS: MEGESTROL ACETATE SUSP 400 MG/10 ML UD PO SCH (08:58)
[2017-02-07] MEDS: FLUoxetine HCL 20 MG CAP PO SCH (09:00)
[2017-02-07] MEDS: MELOXICAM 7.5 MG TAB PO SCH ×2 (09:01→20:34)
[2017-02-07] MEDS: predniSONE 5 MG TAB PO SCH (09:01)
[2017-02-07] MEDS: ATENOLOL 25 MG TAB PO SCH (09:01)
[2017-02-07] MEDS: CHOLECALCIFEROL 2,000 IU TAB PO SCH (09:01)
[2017-02-07] MEDS: ENOXAPARIN SODIUM 40 MG/0.4 ML SYG SUBCU SCH (09:02)
[2017-02-07] MEDS: SODIUM CHLORIDE 0.9% (FLUSH) 10 ML SYG IV SCH ×2 (09:02→20:34)
--- NOTE | 2017-02-07 09:42 | PN ---
SUPERVISING PHYSICIAN: Tony Freedman MD DATE: 02-06-17 SUBJECTIVE: The patient is much more alert today. Son is at the bedside noting that she is more herself mentally. The patient has no significant complaints. She has had no nausea, vomiting or diarrhea or chest pains. She remains afebrile. OBJECTIVE: VITAL SIGNS: Temperature 97.7, pulse 63, blood pressure 140/69, respirations 12 , saturation 98% on nasal cannula at 2 liters. I&O shows negative balance of 1780 with 1120 in and 2900 out. She has had one bowel movement. Weight 54.8 kg. CHEST: Lungs clear to auscultation, just slightly diminished towards the bases. HEART: Regular rate and rhythm. ABDOMEN: Soft, non-tender, positive bowel sounds. EXTREMITIES: No cyanosis, clubbing, or edema. NEUROLOGIC: Alert and oriented x 3 with no obvious neurological deficit. LABORATORY: CBC shows 7,400 white count with hemoglobin 13.3, hematocrit 38.2, platelet count 205,000, differential shows slight left shift. Chemistries show sodium improved to 125, potassium remains at 3.7, BUN 6, creatinine 0.47, glucose 86, serum osmolality up to 48 with liver functions shown to be within normal limits. MICROBIOLOGY: Urine culture showed no growth at 48 hours. RADIOLOGY: NO additional radiographic studies. ASSESSMENT: 1. Altered level of consciousness felt to be secondary to hyponatremia secondary to medication regimen to include Trileptal, Keppra and Gabapentin showing improvement after diuresis of loop diuretic and fluid restriction as well as infusion of 3% saline initially and followed up with normal saline. 2. Electrolyte imbalance with hyponatremia secondary to medication regimen to include Trileptal, Keppra and Gabapentin. 3. Mild opioid induced encephalopathy secondary to significant doses of opioid analgesics exacerbated by a combination of Trileptal, Keppra and Gabapentin for treatment of newly diagnosed underlying trigeminal neuralgia showing improvement after holding Trileptal and Gabapentin. 4. Questionable urinary tract infection with initiation of antibiotics to include Rocephin, possibly exacerbated from the mild confusion along with the hyponatremia.showing improvement after antibiotics but culture showing no growth. 5. History of chronic pain in both hip regions as well as newly diagnosed trigeminal neuralgia which she takes multiple analgesic preparations to include morphine, Fentanyl and newly added medications to include Trileptal and Gabapentin. analgesic preparations to include morphine and Fentanyl. 6. Chronic obstructive pulmonary disease in a chronic smoker without any evidence of exacerbation. 7. History of deep venous thrombosis and pulmonary embolism. 8. History of chronic depression on medication to include Prozac. 9. History of possible cerebrovascular nonhemorrhagic events currently on Plavix. 10. History of diverticulitis without acute exacerbation. PLAN: Will continue with normal saline infusion and low-dose loop diuretics to include Lasix today along with some fluid restrictions to help continue with correction of mild hyponatremia. She continues on Keppra but we have been holding the Gabapentin and Trileptal. She continues to good improvement. Will anticipate hopefully discharge tomorrow with close clinical followup in outpatient setting. Until clinically stable, we will continue to monitor and treat appropriately [facility][id number] [facility]
--- NOTE | 2017-02-07 16:24 | PN ---
SUPERVISING PHYSICIAN: Tony Freedman MD DATE: 02-07-17 SUBJECTIVE: The patient continues to do well. She does not have a fever, she has been able to get up and go to the shower and is getting her strength back. OBJECTIVE: VITAL SIGNS: Temperature 97.8, pulse 62, blood pressure 144/80, respirations 16 , saturation 93% on room air. Weight 52.7 kg. . CHEST: Lungs clear to auscultation.. HEART: Regular rate and rhythm. ABDOMEN: Soft, non-tender, positive bowel sounds. EXTREMITIES: No cyanosis, clubbing, or edema. NEUROLOGIC: Alert and oriented x 3, LABORATORY: Sodium shows continued improvement, it is up to 130 today. Potassium 4.0, BUN 8, creatinine 0.61, calcium 9.2. MICROBIOLOGY: Urine culture shows preliminary gram negative noemí with some such species as being Pseudomonas. Final culture results tomorrow. ASSESSMENT: 1. Altered level of consciousness on admission felt to be secondary to hyponatremia some complications from medication regimen including Trileptal, Keppra and Gabapentin showing improvement after diuresis of loop diuretic and fluid restriction as well as small infusion of 3% saline initially and followed up with normal saline with Trileptal and Gabapentin having been held. 2. Electrolyte imbalance with hyponatremia secondary to medication regimen as noted above from Trileptal and showing improvement with IV infusions. With patient on fluid restrictions as well. Trileptal and Gabapentin have been stopped. 3. Mild opioid induced encephalopathy secondary to significant doses of opioid analgesics exacerbated by a combined effects of Trileptal, Keppra and Gabapentin for treatment of newly diagnosed underlying trigeminal neuralgia showing improvement after holding Trileptal and Gabapentin. 4. Urinary tract infection with gram negative noemí pending final culture results presumptive species noted to be possible Pseudomonas with the patient showing to be clinically stable on Rocephin awaiting fine culture and sensitivity., 5. History of chronic hip and back pain with newly diagnosed trigeminal neuralgia for which she has taken multiple preparations to include morphine, Fentanyl as well as perviously mentioned medications that were added for treatment of the trigeminal neuralgia with Trileptal and Gabapentin analgesics along with morphine and Fentanyl.. 6. Chronic obstructive pulmonary disease in a chronic smoker without any evidence of exacerbation. 7. History of deep venous thrombosis and pulmonary embolism on DVT prophylaxis protocol. 8. History of chronic depression on medication to include Prozac. 9. History of cerebrovascular nonhemorrhagic event currently on Plavix. 10. History of diverticulitis without acute exacerbation. PLAN: Will continue with normal saline infusion and low-dose diuretics to include Lasix with the ongoing fluid restrictions as she continues to show improvement in her hyponatremia. She remains on Keppra but we have held the Trileptal and Gabapentin. Will await final culture results with anticipation of discharging home on p.o. antibiotics as appropriate. Until the, we will continue to monitor closely and treat appropriately. [facility][id number] [facility]
[2017-02-07] MEDS ORDERED: SODIUM CHL 0.9% 50ML MIN-BAG+ 50 ML IVPB ONE (17:15)
[2017-02-07] MEDS ORDERED: cefTRIAXone SODIUM 1 GM VIAL ONE (17:16)
[2017-02-07] MEDS: cefTRIAXone SODIUM 1 GM in SODIUM CHL 0.9% 50ML MIN-BAG+ 50 ML IVPB SCH (17:51)
[2017-02-07] MEDS: OMEPRAZOLE CAP 20 MG CAP PO SCH (20:34)
[2017-02-07] MEDS: CLOPIDOGREL 75 MG TAB PO SCH (20:34)
[2017-02-07] MEDS: levETIRAcetam 250 MG TAB PO SCH (20:34)
[2017-02-08] MEDS: KCL 20 MEQ/NS 1,000 ML IVS PRN (00:52)
[2017-02-08] MEDS: LEVOTHYROXINE SODIUM 0.112 MG TAB PO SCH (06:03)
[2017-02-08] MEDS ORDERED: CEFEPIME 2 GM in SODIUM CHL 0.9% 50ML MIN-BAG+ 50 ML IVPB SCH (07:30)
[2017-02-08] MEDS ORDERED: NON-FORMULARY MEDICATION 1 EA MIS (Tiotropium Bromide Monohydrate [Spiriva Respimat] 2.5 M INH SCH (08:00)
[2017-02-08] MEDS ORDERED: SODIUM CHL 0.9% 50ML MIN-BAG+ 50 ML IVPB ONE (08:08)
[2017-02-08] MEDS ORDERED: CEFEPIME 2 GM VIAL IVPB ONE (08:08)
[2017-02-08] MEDS: ATENOLOL 25 MG TAB PO SCH (08:18)
[2017-02-08] MEDS: predniSONE 5 MG TAB PO SCH (08:18)
[2017-02-08] MEDS: MELOXICAM 7.5 MG TAB PO SCH (08:18)
[2017-02-08] MEDS: FLUoxetine HCL 20 MG CAP PO SCH (08:18)
[2017-02-08] MEDS: SODIUM CHLORIDE 0.9% (FLUSH) 10 ML SYG IV SCH (08:19)
[2017-02-08] MEDS: MEGESTROL ACETATE SUSP 400 MG/10 ML UD PO SCH (10:23)
[2017-02-08] MEDS: ENOXAPARIN SODIUM 40 MG/0.4 ML SYG SUBCU SCH (10:24)
[2017-02-08 10:30] VITALS: BP 145/77; TEMP 97.8; O2SAT 93
[2017-02-08] MEDS ORDERED: levoFLOXacin 500 MG TAB PO SCH (11:30)
[2017-02-08] MEDS: fentaNYL PATCH 50 MCG/HR 1 EA PATCH TD SCH (12:23)
--- NOTE | 2017-02-10 15:00 | DS ---
SUPERVISING PHYSICIAN: Tony Freedman MD DISCHARGE DIAGNOSIS: 1. Altered level of consciousness on admission, secondary to hyponatremia complicated from medication regimen including newly added medication of Trileptal to Keppra and gabapentin, showing improvement with loop diuretic and fluid restriction as well as low infusion of 3% saline with Trileptal and gabapentin having been held. 2. Electrolyte imbalance with hyponatremia secondary to medication regimen as noted above with Trileptal and gabapentin stopped, showing improvement with IV fluids with the patient remaining on fluid restrictions. 3. Mild opioid induced encephalopathy complicated by #1 and #2, combination of medications, showing improvement after stopping Trileptal and gabapentin with noted new medication started for a new diagnosis of trigeminal neuralgia. 4. Urinary tract infection with Pseudomonas aeruginosa that was showing fairly resistant pattern, but sensitive to cefepime, Cipro, Levaquin and meropenem. Please see that final result for full details with the patient being transitioned to p.o. medication to include Levaquin at time of discharge. 5. History of chronic hip and back pain as well as newly diagnosed trigeminal neuralgia for which she has taken multiple preparations to include morphine, fentanyl as well as perviously mentioned medications that were added for treatment of the trigeminal neuralgia with Trileptal and gabapentin adding to her decreased sensorium with the morphine and fentanyl. 6. Chronic obstructive pulmonary disease in a chronic smoker without any evidence of exacerbation. 7. History of deep venous thrombosis and pulmonary embolism on DVT prophylaxis protocol through hospitalization. 8. History of chronic depression on medication to include Prozac. 9. History of cerebrovascular nonhemorrhagic event currently on Plavix. 10. History of diverticulitis without acute exacerbation through admission. HISTORY OF PRESENT ILLNESS: Ms. Jackson is a 81 year-old female patient that presented to the Emergency Department on date of admission by her son as he noted that he was having a hard time waking his mother up that morning. On admission, the patient denied any symptoms. The patient did note that she had been seeing the doctor 3 times in the past 10 days. She has a history of recently being diagnosed with trigeminal neuralgia and having been on Trileptal, Keppra and gabapentin. Initially, she was started on Trileptal in December to January 15 and then switched to gabapentin and Keppra. She was brought to the clinic at [facility] yesterday and was seen for similar symptoms at which time gabapentin was stopped and she was continued on the Trileptal and Keppra. She has also reported that she was started on antibiotics for a dental infection as well as respiratory infection. She does have a significant history of chronic back pain and rheumatoid arthritis for which she takes multiple analgesics to include a fentanyl patch 50 mcg as well as p.r.n. morphine. Her laboratory studies show she was hyponatremic with sodium 120. Review of past medical records show that sodium has been within normal limits. Other electrolytes showed to be within normal limits as well as BUN and creatinine with BUN 9, creatinine 0.53. Serum osmolality was low at 238. Urinalysis completed shows a specific gravity of 1.015 with dipstick showing positive for nitrites and trace blood with microscopic showing 3 to 5 WBCs with 1+ bacteria, [address] Amaya, Emergency Room physician , requested that the patient be admitted to the hospital for treatment of her hyponatremia as well as close monitoring given the decreased level of consciousness the patient has experienced given that she is on multiple medications that are known to decrease central nervous system levels. She was given initially 3% saline in the Emergency Department and then admitted to the Medical/Surgical floor in stable condition. LABORATORY: CBC on admission and discharge showed normal white count with discharge white count of 7,400, hemoglobin 13, hematocrit 38.2, platelet count within normal limits at 205,000. Differential did show a left shift, but was improved prior to discharge. Chemistries showed initial sodium 120. At discharge after infusion of saline and stopping medications, it improved up to 131. Potassium was within normal limits at 4.0. Renal function showed BUN 7, creatinine 0.6. Initial serum osmolality was 238. At discharge, it was 260. Liver functions all showed to be within normal limits. Urinalysis on admission showed trace intact blood, positive nitrites with small leukocyte esterase with RBCs 0 to 1, WBCs 3 to 5, 1+ bacteria. MICROBIOLOGY: Final urine culture showed Pseudomonas aeruginosa that was showing a fairly resistant pattern, but sensitive to levofloxacin and ciprofloxacin, but had been resistant to ceftriaxone. RADIOLOGY: There were radiographic studies completed on admission. HOSPITAL COURSE: Ms. Jackson was admitted as noted in history of present illness for decreased level of consciousness. However, on admission to the Medical/ Surgical Floor, the patient was actually alert and oriented. It was noted she was hyponatremic and had recently been started on new medications that included Trileptal as well as gabapentin in the past for treatment of underlying trigeminal neuralgia as well as she is on multiple opioid medications. The Trileptal and gabapentin had been stopped. She was given an infusion of normal saline as well as some loop diuretics and fluid restrictions and showed good response with improvement of her sodium. She also had a urinary tract infection as evidenced by the underlying urinalysis and was started initially on Rocephin and was actually showing good response with no complications, but sensitivity came back as Pseudomonas aeruginosa with resistance to ceftriaxone. The patient has multiple allergies to antibiotics including sulfa, ciprofloxacin. On the morning of discharge, she was alert and doing well and felt well enough clinically to be discharged to continue with outpatient treatment antibiotics. After review of her chart from the clinic, the patient had previously been on levofloxacin. Therefore, I transitioned her to p.o. levofloxacin prior to discharge to continue with treatment in the outpatient setting. PLAN: The patient was discharged on 02/08/17 with instructions to followup with her primary care provider within the next week, Dr. Schmitt. She was to call his office on Friday to schedule an appointment. She was to resume her medications as instructed except to hold the Trileptal and gabapentin until followup. She also needs a followup appointment to see Dr. Loyola. She was started on Levaquin and was to begin that on the morning of discharge and return to the hospital should she have any concerning symptoms. NEW PRESCRIPTIONS AT DISCHARGE: 1. Levaquin 250 mg daily for 10 days. All other medications were resumed as noted above. DIET AT DISCHARGE: Regular diet as tolerated. ACTIVITY: Encouraged to increase activity as tolerated. CONDITION AT DISCHARGE: Stable and improved. #[id number] [facility]
== END 2017-02-08 13:00 | disposition home or self-care (01) | DRG 640 ==
LOC: ER 11:37 → MS 13:19
PROVIDERS: ADMIT Nurse Practitioner Family; ATTEND Nurse Practitioner Family
DX: E87.1 Hypo-osmolality and hyponatremia (principal); G92 Toxic encephalopathy; N39.0 Urinary tract infection, site not specified; T42.1X5A Adverse effect of iminostilbenes, initial encounter; G50.0 Trigeminal neuralgia; T40.2X5A Adverse effect of other opioids, initial encounter; B96.5 Pseudomonas (aeruginosa) (mallei) (pseudomallei) as the cause of diseases classified elsewhere; J44.9 Chronic obstructive pulmonary disease, unspecified; F17.210 Nicotine dependence, cigarettes, uncomplicated; F32.9 Major depressive disorder, single episode, unspecified; M10.9 Gout, unspecified; G89.29 Other chronic pain; M54.9 Dorsalgia, unspecified; M25.559 Pain in unspecified hip; Y92.9 Unspecified place or not applicable; Z86.711 Personal history of pulmonary embolism; Z86.718 Personal history of other venous thrombosis and embolism; Z86.73 Personal history of transient ischemic attack (TIA), and cerebral infarction without residual deficits; Z79.02 Long term (current) use of antithrombotics/antiplatelets; Z79.891 Long term (current) use of opiate analgesic; Z79.52 Long term (current) use of systemic steroids; Z79.1 Long term (current) use of non-steroidal anti-inflammatories (NSAID); Z79.899 Other long term (current) drug therapy; Z88.0 Allergy status to penicillin; Z88.1 Allergy status to other antibiotic agents; Z88.2 Allergy status to sulfonamides; Z88.3 Allergy status to other anti-infective agents; Z88.8 Allergy status to other drugs, medicaments and biological substances

== ENCOUNTER → 2017-02-14 | Outpatient (CLI) | payer MEDICARE, OTHER | LOC: GMAL 12:46 | PROVIDERS: ATTEND Family Medicine | DX: N39.0 Urinary tract infection, site not specified (principal) ==

== ENCOUNTER → 2017-02-21 | Outpatient (CLI) | payer MEDICARE, OTHER | LOC: BFHH 09:54 | PROVIDERS: ATTEND Family Medicine | DX: R30.9 Painful micturition, unspecified (principal) ==

== ENCOUNTER 2017-05-08 09:23 | Emergency (ER) | payer MEDICARE, OTHER ==
[2017-05-08 09:34] VITALS: TEMP 97.7; O2SAT 97
--- NOTE | 2017-05-08 10:25 | ED.PDOC ---
History of Present Illness - General Chief Complaint: GI Problem Stated Complaint: abdominal pain Time Seen by Provider: 05/08/17 10:10 Source: patient Exam Limitations: no limitations - History of Present Illness Initial Comments: Patient presents with diarrhea x "10 times" this morning. Diarrhe was non- bloody. She says she has a "burning sensation" in her abdomen. The sensation is infrasternal with no radiation. It has resolved but was evident during her bowel movements this morning. She had extreme nausea this morning with diaphoresis but did not vomit. She has a history of GERD. She says that sometimes her food "gets stuck" in her upper stomach and sometimes water regurgitates up her esophagus without nausea or vomiting. No timing nor context to her abdominal pain. No other symptoms. Is s/p appendectomy and partial hysterectomy. Timing/Duration: 4-6 hours Severity: moderate Improving Factors: nothing Worsening Factors: nothing Associated Symptoms: other - nausea Allergies/Adverse Reactions: Allergies Rosuvastatin [From Crestor] Allergy (Severe, Verified 05/08/17 09:34) Other CI Pigment Blue 63 [From Cymbalta] Allergy (Intermediate, Verified 05/08/17 09: 34) Vomitting Duloxetine [From Cymbalta] Allergy (Intermediate, Verified 05/08/17 09:34) Vomitting Sulfa Antibiotics Allergy (Intermediate, Verified 05/08/17 09:34) Hives Penicillin G Allergy (Mild, Verified 05/08/17 09:34) Rash Ciprofloxacin Allergy (Verified 05/08/17 09:34) Varenicline [From Chantix] Adverse Reaction (Intermediate, Verified 05/08/17 09: 34) Vomitting Home Medications: Ambulatory Orders HYDROcodone 10MG/APAP 325MG [[place] 10/325] 10 - 325 mg PO TID PRN 03/01/13 predniSONE [PredniSONE] 5 mg PO DAILY 03/01/13 Levothyroxine Sodium [Levoxyl] 1 each PO DAILY 09/14/14 Cyanocobalamin Inj [Vitamin B-12 Inj] 1,000 mcg IM MONTHLY 02/18/15 Atenolol [Tenormin] 25 mg PO DAILY 06/23/16 Clopidogrel Bisulfate 75 mg PO BEDTIME 06/23/16 Diphenoxylate/Atropine [Lomotil Tab] 2.5 mg PO Q6HRS PRN 06/23/16 Fluoxetine HCl [Prozac] 60 mg PO DAILY 06/23/16 Levetiracetam [Keppra] 1,000 mg PO BEDTIME 06/23/16 Meclizine HCl 25 mg PO Q6HR PRN 06/23/16 Megestrol Acetate [Megace Oral] 2.5 ml PO DAILY 06/23/16 Meloxicam [Mobic] 7.5 mg PO BID 06/23/16 Omeprazole [Prilosec Cap] 40 mg PO BEDTIME 06/23/16 fentaNYL PATCH 50 MCG/HR [Duragesic Patch 50 MCG/HR] 1 ea TD Q72H #1 patch 06/28 Cholecalciferol [Vitamin D3] 5,000 unit PO MOTUWETHFR@0900 02/05/17 Tiotropium [place] Monohydrate [Spiriva Respimat] 2.5 mcg INH RTDAILY 02/06/17 Omeprazole [Prilosec] 20 mg PO BID #60 cap 05/08/17 hydrOXYzine HCl [Atarax] 25 mg PO DAILY PRN 05/08/17 Past Medical History (General) - Patient Medical History Hx Seizures: Yes Hx Stroke: No Hx Asthma: No Hx of COPD: Yes Hx Cardiac Disorders: Yes - DVT, PE Hx Congestive Heart Failure: No Hx Pacemaker: No Hx Hypertension: Yes Hx Thyroid Disease: Yes Hx Diabetes: No Hx Hepatitis C: No Hx MRSA: No Surgical History: appendectomy, Hysterectomy - Vaccination History Hx Influenza Vaccination: Yes Hx Pneumococcal Vaccination: Yes - Social History Hx Tobacco Use: Yes Hx Alcohol Use: No Hx Substance Use: No Hx Physical Abuse: No Hx Emotional Abuse: No - Female History Patient : Yes Family Medical History - Family History Mother Living Status: Hx Family Asthma: No Hx Family Congestive Heart Failure: Yes - mom Hx Family Hypertension: Yes - dad Hx Family Stroke: No Hx Cardiac Disease: No Hx Family Diabetes: Yes - dad Hx Family Cancer: Yes - multiple family members-brain,gastric Physical Exam - Physical Exam General Appearance: Alert Eye Exam: bilateral normal Ears, Nose, Throat: normal ENT inspection Neck: non-tender, full range of motion, supple Respiratory: decreased breath sounds Cardiovascular/Chest: normal peripheral pulses, regular rate, rhythm, no edema Gastrointestinal/Abdominal: normal bowel sounds, non tender, soft Back Exam: no CVA tenderness Extremity: normal range of motion Neurologic: sewer pipe sorter II-XII nml as tested, no motor/sensory deficits Skin Exam: normal color Lymphatic: no adenopathy Progress - Progress Progress: 05/08/17 14:18 CT ab/pelvis was negative for acute disease. Patient given one liter NS bolus. Was asymptomatic in the E.R. She was provided with a stool culture kit and instructions to follow up with her pcp regarding chronic diarrhea. She disclosed later in the visit that this has been actually going on for a month, intermittently. Laboratory Tests 05/08/17 05/08/17 05/08/17 10:25 10:44 10:44 WBC 14.4 H RBC 4.84 Hgb 15.2 Hct 46.2 MCV 95.3 MCH 31.4 H MCHC 32.9 L RDW 14.0 Plt Count 247 MPV 8.4 Absolute Neuts (auto) 12.10 H Absolute Lymphs (auto) 1.20 Absolute Monos (auto) 0.90 H Absolute Eos (auto) 0.10 Absolute Basos (auto) 0.10 Neutrophils % 84.0 H Lymphocytes % 8.7 L Monocytes % 6.0 Eosinophils % 0.5 L Basophils % 0.8 PT INR PTT (SP) Sodium 135 Potassium 3.4 L Chloride 100 L Carbon Dioxide 24 Anion Gap 14.4 BUN 15 Creatinine 0.96 BUN/Creatinine Ratio 15.6 Random Glucose 100 Serum Osmolality 271.0 L Calcium 9.6 Total Bilirubin 0.5 AST 22 ALT 15 Alkaline Phosphatase 45 Creatine Kinase 30 CK-MB (CK-2) 1.5 CK-MB (CK-2) % Not Reportable Troponin I 0.02 B-Natriuretic Peptide 407.0 H* Serum Total Protein 7.2 Albumin 4.0 Globulin 3.2 Albumin/Globulin Ratio 1.3 Lipase TSH Urine Color Yellow Urine Appearance Clear Urine pH 6.0 Ur Specific [place] 1.025 Urine Protein 30 Urine Glucose (UA) Negative Urine Ketones Negative Urine Blood Negative Urine Nitrite Negative Urine Bilirubin Negative Urine Urobilinogen 0.2 Ur Leukocyte Esterase Negative Urine RBC 0-1 Urine WBC 0-1 Ur Epithelial Cells 0-1 Amorphous Sediment 1+ Urine Bacteria 0 05/08/17 05/08/17 05/08/17 10:44 10:44 10:44 WBC RBC Hgb Hct MCV MCH MCHC RDW Plt Count MPV Absolute Neuts (auto) Absolute Lymphs (auto) Absolute Monos (auto) Absolute Eos (auto) Absolute Basos (auto) Neutrophils % Lymphocytes % Monocytes % Eosinophils % Basophils % PT 11.6 INR 1.030 PTT (SP) 34.1 Sodium Potassium Chloride Carbon Dioxide Anion Gap BUN Creatinine BUN/Creatinine Ratio Random Glucose Serum Osmolality Calcium Total Bilirubin AST ALT Alkaline Phosphatase Creatine Kinase CK-MB (CK-2) CK-MB (CK-2) % Troponin I B-Natriuretic Peptide Serum Total Protein Albumin Globulin Albumin/Globulin Ratio Lipase 20 L TSH 1.91 Urine Color Urine Appearance Urine pH Ur Specific [place] Urine Protein Urine Glucose (UA) Urine Ketones Urine Blood Urine Nitrite Urine Bilirubin Urine Urobilinogen Ur Leukocyte Esterase Urine RBC Urine WBC Ur Epithelial Cells Amorphous Sediment Urine Bacteria Departure - Departure Clinical Impression: Chronic diarrhea Disposition: Discharge to Home or Self Care Condition: Good Departure Forms: ED Discharge - Pt. Copy, Patient Portal Self Enrollment Instructions: DI for Gastritis, DI for Diarrhea and Traveler's Diarrhea -- Adult Diet: resume usual diet, other - Increase oral fluids. Referrals: Reji Schmitt III, MD [Primary Care Provider] - 1-2 Weeks Prescriptions: Omeprazole [Prilosec] 20 mg PO BID #60 cap Home Medications: Ambulatory Orders HYDROcodone 10MG/APAP 325MG [[place] 10/325] 10 - 325 mg PO TID PRN 03/01/13 predniSONE [PredniSONE] 5 mg PO DAILY 03/01/13 Levothyroxine Sodium [Levoxyl] 1 each PO DAILY 09/14/14 Cyanocobalamin Inj [Vitamin B-12 Inj] 1,000 mcg IM MONTHLY 02/18/15 Atenolol [Tenormin] 25 mg PO DAILY 06/23/16 Clopidogrel Bisulfate 75 mg PO BEDTIME 06/23/16 Diphenoxylate/Atropine [Lomotil Tab] 2.5 mg PO Q6HRS PRN 06/23/16 Fluoxetine HCl [Prozac] 60 mg PO DAILY 06/23/16 Levetiracetam [Keppra] 1,000 mg PO BEDTIME 06/23/16 Meclizine HCl 25 mg PO Q6HR PRN 06/23/16 Megestrol Acetate [Megace Oral] 2.5 ml PO DAILY 06/23/16 Meloxicam [Mobic] 7.5 mg PO BID 06/23/16 Omeprazole [Prilosec Cap] 40 mg PO BEDTIME 06/23/16 fentaNYL PATCH 50 MCG/HR [Duragesic Patch 50 MCG/HR] 1 ea TD Q72H #1 patch 06/28 Cholecalciferol [Vitamin D3] 5,000 unit PO MOTUWETHFR@0900 02/05/17 Tiotropium [place] Monohydrate [Spiriva Respimat] 2.5 mcg INH RTDAILY 02/06/17 Omeprazole [Prilosec] 20 mg PO BID #60 cap 05/08/17 hydrOXYzine HCl [Atarax] 25 mg PO DAILY PRN 05/08/17 Additional Instructions: See your regular doctor early next week to have your chronic diarrhea evaluated. Increase your oral fluids to stay hydrated.
--- NOTE | 2017-05-08 10:44 | RAD ---
EXAM DESCRIPTION: Portable Chest CLINICAL HISTORY: upper abdominal pain, dysphagia COMPARISON: Chest radiographs from June 27, 2016 TECHNIQUE: Single frontal view of chest FINDINGS: Opacity in the retrocardiac region could represent hiatal hernia. Lungs are stably aerated bilaterally. No consolidation or pneumothorax nor costophrenic blunting on either side. Cardiac mediastinal contours are unremarkable in appearance. IMPRESSION: Possible hiatal hernia. No consolidation or pneumothorax in either lung Electronically signed by: Tk Story MD 05/08/2017 10:43 AM [facility]
--- NOTE | 2017-05-08 12:34 | CT ---
CT of abdomen and pelvis without and with intravenous contrast HISTORY:abdominal pain COMPARISON:None TECHNIQUE: Routine CT protocol before and after intravenous contrast ( ) administration. Oral contrast is not administered. Image reformations in coronal and sagittal planes. Imaging was performed with automated exposure protocol to minimize radiation dose. FINDINGS: LUNG BASES: Limited visualization demonstrate minimal atelectasis in both lung bases. A benign-appearing simple cyst or cystic lesion measuring 4.8 x 7.2 cm situated directly above the right hemidiaphragm near the right cardiophrenic angle. ABDOMEN: No calcific nephrolithiasis nor obstructive uropathy in either kidney. Following intravenous contrast demonstration, there is unremarkable cortical perfusion in both kidneys. No concerning cortical lesion on either side. Simple cysts identified in both kidneys. Diffuse fatty infiltration in liver without concerning mass nor abnormal biliary distention. An 8 mm enhancing finding with benign appearance near the dome of the right hepatic lobe could represent a hemangioma. Spleen, pancreas, adrenal glands and kidneys are unremarkable in appearance. Gallbladder is unremarkable in appearance. No concerning mesenteric nor retroperitoneal lymphadenopathy. Abdominal aorta in its major mesenteric branches are patent without obvious dissection nor aneurysmal dilatation. Small and large bowel loops are normal in caliber without obstruction, perforation nor joining abscess. Appendix is not visualized possibly surgically absent. Mildly accentuated lumbar lordosis secondary to multilevel degenerative changes, without focal bony injury. PELVIS: Bladder is mildly distended. Uterus is surgically absent. Incidental note of pessary in the cul-de-sac. No concerning fluid collection or pathologic lymphadenopathy nor bony injury in pelvis. IMPRESSION: 1. No calcific urolithiasis nor obstructive uropathy on either side. 2. No bowel obstruction nor perforation nor joining abscess. 3. No concerning intraperitoneal lymphadenopathy. 4. Incidental note of indeterminate but benign-appearing cystic lesion overlying the right hemidiaphragm, near the right cardiophrenic angle. This finding could represent variant of normal finding versus a variety of benign cystic etiologies. 5. Possible benign subcentimeter hemangioma near dome of the right hepatic lobe. Electronically signed by: Tk Story MD 05/08/2017 12:33 PM [employer]
[2017-05-08] MEDS ORDERED: SODIUM CHLORIDE 0.9% 1000ML 1,000 ML IVS ONE (12:49)
[2017-05-08 14:44] VITALS: BP 145/76
== END 2017-05-08 14:44 | disposition home or self-care (01) ==
LOC: ER 09:23
DX: K52.9 Noninfective gastroenteritis and colitis, unspecified (principal); J44.9 Chronic obstructive pulmonary disease, unspecified; I10 Essential (primary) hypertension; E07.9 Disorder of thyroid, unspecified; Z86.718 Personal history of other venous thrombosis and embolism; Z86.711 Personal history of pulmonary embolism; Z80.0 Family history of malignant neoplasm of digestive organs
CPT/HCPCS: 36415; 71045; 74178; 80053; 81001; 82550; 82553; 83690; 83880; 84443; 84484; 85025; 85610; 85730; J7030

== ENCOUNTER 2017-05-10 11:08 | Observation (INO) | payer MEDICARE, OTHER ==
[2017-05-10] MEDS ORDERED: SODIUM CHLORIDE 0.9% 500ML 500 ML IVS ONE (11:31)
[2017-05-10] MEDS ORDERED: ONDANSETRON INJ 4 MG/2 ML VIAL IV ONE (11:31)
[2017-05-10] MEDS ORDERED: PANTOPRAZOLE SODIUM IV 40 MG VIAL IV ONE (11:31)
--- NOTE | 2017-05-10 11:31 | ED.PDOC ---
History of Present Illness - General Chief Complaint: Abdominal Pain Time Seen by Provider: 05/10/17 11:13 Source: patient Exam Limitations: no limitations Additional Information: ABDOMINAL PAIN, N/V. STARTED SEVERAL DAYS AGO. WAS SEEN HERE 05/08 AND EVALUATED. LAB ONLY REMARKABLE FOR SLIGHTLY ELEVATED BNP. CT ABDOMEN UNREMARKABLE. WENT TO PCP'S OFFICE TODAY WITH VOMITING. WAS SENT HERE FOR FURTHER EVALUATION - History of Present Illness Severity: moderate Improving Factors: nothing Worsening Factors: nothing Associated Symptoms: nausea/vomiting Allergies/Adverse Reactions: Allergies Rosuvastatin [From Crestor] Allergy (Severe, Verified 05/08/17 09:34) Other CI Pigment Blue 63 [From Cymbalta] Allergy (Intermediate, Verified 05/08/17 09: 34) Vomitting Duloxetine [From Cymbalta] Allergy (Intermediate, Verified 05/08/17 09:34) Vomitting Sulfa Antibiotics Allergy (Intermediate, Verified 05/08/17 09:34) Hives Penicillin G Allergy (Mild, Verified 05/08/17 09:34) Rash Ciprofloxacin Allergy (Verified 05/08/17 09:34) Varenicline [From Chantix] Adverse Reaction (Intermediate, Verified 05/08/17 09: 34) Vomitting Home Medications: Ambulatory Orders HYDROcodone 10MG/APAP 325MG [[place] 10/325] 10 - 325 mg PO TID PRN 03/01/13 predniSONE [PredniSONE] 5 mg PO DAILY 03/01/13 Levothyroxine Sodium [Levoxyl] 1 each PO DAILY 09/14/14 Cyanocobalamin Inj [Vitamin B-12 Inj] 1,000 mcg IM MONTHLY 02/18/15 Atenolol [Tenormin] 25 mg PO DAILY 06/23/16 Clopidogrel Bisulfate 75 mg PO BEDTIME 06/23/16 Diphenoxylate/Atropine [Lomotil Tab] 2.5 mg PO Q6HRS PRN 06/23/16 Fluoxetine HCl [Prozac] 60 mg PO DAILY 06/23/16 Levetiracetam [Keppra] 1,000 mg PO BEDTIME 06/23/16 Meclizine HCl 25 mg PO Q6HR PRN 06/23/16 Megestrol Acetate [Megace Oral] 2.5 ml PO DAILY 06/23/16 Meloxicam [Mobic] 7.5 mg PO BID 06/23/16 Omeprazole [Prilosec Cap] 40 mg PO BEDTIME 06/23/16 fentaNYL PATCH 50 MCG/HR [[place] Patch 50 MCG/HR] 1 ea TD Q72H #1 patch 06/28 Cholecalciferol [Vitamin D3] 5,000 unit PO MOTUWETHFR@0900 02/05/17 Tiotropium [place] Monohydrate [Spiriva Respimat] 2.5 mcg INH RTDAILY 02/06/17 Omeprazole [Prilosec] 20 mg PO BID #60 cap 05/08/17 hydrOXYzine HCl [Atarax] 25 mg PO DAILY PRN 05/08/17 Review of Systems - Review of Systems Constitutional: Denies: chills, fever EENTM: States: no symptoms reported Respiratory: Denies: cough, short of breath, wheezing Cardiology: States: no symptoms reported Gastrointestinal/Abdominal: States: abdominal pain, diarrhea, nausea, vomiting Genitourinary: States: no symptoms reported Musculoskeletal: States: no symptoms reported Skin: States: no symptoms reported Neurological: States: no symptoms reported Endocrine: States: no symptoms reported Hematologic/Lymphatic: States: no symptoms reported Past Medical History (General) - Patient Medical History Hx Seizures: Yes Hx Stroke: No Hx Asthma: No Hx of COPD: Yes Hx Cardiac Disorders: Yes - DVT, PE Hx Congestive Heart Failure: No Hx Pacemaker: No Hx Hypertension: Yes Hx Thyroid Disease: Yes Hx Diabetes: No Hx Hepatitis C: No Hx MRSA: No Surgical History: appendectomy, Hysterectomy - Vaccination History Hx Influenza Vaccination: Yes Hx Pneumococcal Vaccination: Yes - Social History Hx Tobacco Use: Yes Hx Alcohol Use: No Hx Substance Use: No Hx Physical Abuse: No Hx Emotional Abuse: No - Female History Patient : Yes Family Medical History - Family History Mother Living Status: Hx Family Asthma: No Hx Family Congestive Heart Failure: Yes - mom Hx Family Hypertension: Yes - dad Hx Family Stroke: No Hx Cardiac Disease: No Hx Family Diabetes: Yes - dad Hx Family Cancer: Yes - multiple family members-brain,gastric Physical Exam - Physical Exam General Appearance: Anxious, No apparent distress Eye Exam: bilateral normal Ears, Nose, Throat: normal ENT inspection, other - EDENTULOUS, MM SL DRY Neck: non-tender, full range of motion, supple Respiratory: lungs clear, normal breath sounds Cardiovascular/Chest: regular rate, rhythm, no murmur Gastrointestinal/Abdominal: normal bowel sounds, soft, no organomegaly, other - MOD TTP EPIGASTRIC AREA, NO G/R, NO VILLELA'S Back Exam: normal inspection, no CVA tenderness Extremity: normal range of motion, non-tender, normal inspection Neurologic: alert, normal mood/affect Skin Exam: normal color, warm/dry Lymphatic: no adenopathy Progress - Progress Progress: 05/10/17 12:59 STILL C/O PAIN, ABDOMINAL EXAM IMPROVED, MILD EPIGASTRIC TTP. - EKG/XRAY/CT XRAY: ACUTE ABD PRISCILLA. Departure - Departure Clinical Impression: Dehydration Abdominal pain Qualifiers: Abdominal location: epigastric Qualified Code(s): R10.13 - Epigastric pain ICD-10 Supporting Text: DDX: GASTRITIS VS BILIARY COLIC Time of Disposition: 13:16 - D/W KASSIE, WILL ADMIT FOR OBSERVATION Disposition: Admit Patient Condition: Fair Departure Forms: ED Discharge - Pt. Copy, Patient Portal Self Enrollment Instructions: DI for Abdominal Pain-Adult Referrals: Reji Schmitt III, MD [Primary Care Provider] - 1-2 Weeks Home Medications: Ambulatory Orders HYDROcodone 10MG/APAP 325MG [[place] 10/325] 10 - 325 mg PO TID PRN 03/01/13 predniSONE [PredniSONE] 5 mg PO DAILY 03/01/13 Levothyroxine Sodium [Levoxyl] 1 each PO DAILY 09/14/14 Cyanocobalamin Inj [Vitamin B-12 Inj] 1,000 mcg IM MONTHLY 02/18/15 Atenolol [Tenormin] 25 mg PO DAILY 06/23/16 Clopidogrel Bisulfate 75 mg PO BEDTIME 06/23/16 Diphenoxylate/Atropine [Lomotil Tab] 2.5 mg PO Q6HRS PRN 06/23/16 Fluoxetine HCl [Prozac] 60 mg PO DAILY 06/23/16 Levetiracetam [Keppra] 1,000 mg PO BEDTIME 06/23/16 Meclizine HCl 25 mg PO Q6HR PRN 06/23/16 Megestrol Acetate [Megace Oral] 2.5 ml PO DAILY 06/23/16 Meloxicam [Mobic] 7.5 mg PO BID 06/23/16 Omeprazole [Prilosec Cap] 40 mg PO BEDTIME 06/23/16 fentaNYL PATCH 50 MCG/HR [[place]ages[place] Patch 50 MCG/HR] 1 ea TD Q72H #1 patch 06/28 Cholecalciferol [Vitamin D3] 5,000 unit PO MOTUWETHFR@0900 02/05/17 Tiotropium [place] Monohydrate [Spiriva Respimat] 2.5 mcg INH RTDAILY 02/06/17 Omeprazole [Prilosec] 20 mg PO BID #60 cap 05/08/17 hydrOXYzine HCl [Atarax] 25 mg PO DAILY PRN 05/08/17
--- NOTE | 2017-05-10 12:18 | RAD ---
PROCEDURE: Abdomen Series Clinical History: ABDOMINAL PAIN Indication: Same as above Comparison: Chest x-ray done on 02/18/2015 Technique: Two views of the abdomen and pelvis and 1.0 view of the chest were done. Findings: There is no gross evidence of free air in the abdomen or the pelvis . The small and large bowel gas pattern does not show any evidence of obstruction, ileus or bowel wall thickening. There is no visualization of radiopaque calculi in the outline of the urinary tract. Degenerative changes superimposed post on scoliotic curvature of the thoracic and lumbar spine is noted. 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 There are underlying changes of COPD. There are no discrete airspace infiltrates pleural effusions or pneumothoraces. Note is again made of a moderate size hiatal hernia Impression: Normal bowel gas pattern without any acute lung parenchymal findings. Moderate size hiatal hernia Electronically signed by: Hong Iyer MD 05/10/2017 12:17 PM [employer] Workstation: [id number]
[2017-05-10] MEDS ORDERED: ALUM & MAG HYDROX-SIMETHICONE 30 ML, LIDOCAINE VISCOUS 2% 15 ML PO ONE ×2 (13:01)
[2017-05-10] MEDS ORDERED: ALUM & MAG HYDROX-SIMETHICONE 30 ML UD ONE (13:05)
[2017-05-10] MEDS ORDERED: LIDOCAINE HCL 2% (MOUTH-THROAT) 15 ML UD ONE (13:05)
--- NOTE | 2017-05-10 13:40 | HP ---
SUPERVISING PHYSICIAN: Tony Fredeman MD CHIEF COMPLAINT: Abdominal pain. HISTORY OF PRESENT ILLNESS: Ms. Jackson is a 81 year-old female patient who presented to the Emergency Department today complaining of abdominal pain with some nausea and vomiting that started several days previous. She was seen in the Emergency Room here on 05/08/17 and evaluated and only remarkable for elevated BNP as well as a CT abdomen that was unremarkable for any acute findings. She had gone to the walk-in clinic at [facility] today and was seen by ALKA Austin, at the time she was having active vomiting and was sent to the Emergency Department for further evaluation. Initial laboratory studies showed that she had a mild leukocytosis of 11,200 but no left shift. Hemoglobin was 14.8, hematocrit 44.4. Chemistries showed just some mild hypokalemia with a potassium of 3.0, otherwise electrolytes were within normal limits. BUN and creatinine showed to be within normal limits with creatinine 0.9. Liver functions all showed to be normal as well as amylase and lipase. Urinalysis was pending at times of admission. On assessment, the patient was having some generalized pain over her epigastrium. She was given a GI slider which did result in a significant decrease in her pain level. She had also noted that she had been having some diarrhea but she does have a longstanding history of chronic diarrhea. Given the degree of hypokalemia and her dehydration, acute abdominal pain, further work up included abdominal x-rays, 2-view, that showed per radiology interpretation a normal bowel gas pattern without any acute lung or parenchymal findings. Dr. Morrison, Emergency Room physician, requested the patient be placed in observation for IV fluids and close monitoring and further evaluation given that she was having some active nausea and vomiting and was obviously dehydrated with some ongoing acute abdominal pain. The patient is now going to be admitted to the medical/surgical floor for further evaluation and treatment. PAST MEDICAL HISTORY: 1. Chronic diarrhea. 2. History of deep venous thrombosis and pulmonary embolism. 3. History of chronic depression. 4. Chronic back pain on multiple analgesics. 5. History of a previous possible cerebrovascular accident, nonhemorrhagic in the past with good recovery. 6. History of rheumatoid arthritis. 7. History of diverticulitis. 8. Right sided trigeminal neuralgia. 9. Hypertension with grade I diastolic dysfunction with last echocardiogram in September 2016 with ejection fraction of 50%. 10. Pulmonary embolism was noted in 1979. 11. B12 deficiency. MEDICAL PROVIDERS: Primary care provider is Dr. Schmitt. Rug Cutter Helper is Dr. Lr. Neurologist is Dr. Loyola. PAST SURGICAL HISTORY: 1. Appendectomy. 2. Hysterectomy. 3. Bladder suspension. 4. Radiofrequency neurotomies, L3 to S1 facets and L4 to L5. 5. Last colonoscopy per review of her medical records shows to be in [address] Lr with 2 polyps removed and diverticulosis. CURRENT MEDICATIONS: Pending review and updated medications show she is on: 1. Prednisone 5 mg. 2. Atarax 25 mg b.i.d. as needed. 3. Duragesic patch 50 mcg every 72 hours. 4. Spiriva Respimat 2 inhaled daily. 5. Oxcarbazepine 150 mg b.i.d. 6. Zofran ODT 8 mg p.r.n. 7. Prilosec 40 mg at bedtime. 8. Morphine sulfate 30 mg b.i.d. 9. Mobic 7.5 mg b.i.d. 10. Levoxyl 1 daily. 11. Keppra 1000 mg at bedtime. 12. Starlight 10/325, one tablet 3 times a day as needed. 13. Gabapentin 300 mg b.i.d. 14. Prozac 60 mg daily. 15. Vitamin B12 injection 1000 mcg monthly. 16. Plavix 75 mg at bedtime. 17. Tenormin 25 mg daily. ALLERGIES: CRESTOR, PENICILLIN, SULFA MEDICATION, CHANTIX, CIPRO, CYMBALTA, IRON PILLS, LAMISIL. FAMILY HISTORY: Father at age 74 from lung cancer. Mother at age 76 secondary to congestive heart failure and type 2 diabetes. SOCIAL HISTORY: The patient is a homemaker. She is a and lives in [place]. She is a current smoker, smoking approximately a pack every day. She denies any alcohol or illicit drug use. REVIEW OF SYSTEMS: CONSTITUTIONAL: Denies any fever, chills or unintentional weight loss. HEENT: No nasal congestion, headaches, sore throat, ear aches. CHEST: No cough, shortness of breath or wheezing. HEART: No chest pain, palpitations, syncopal episodes. GASTROINTESTINAL: As noted in history of present illness. Abdominal pain over the epigastrium with some diarrhea which has been chronic as well as some ongoing nausea and vomiting. GENITOURINARY: Denies any dysuria or hematuria but does have a history of incontinence. NEUROLOGIC: Denies vision changes, dizziness, ataxia or other neurological deficits. PHYSICAL EXAMINATION: VITAL SIGNS: Temperature 97.8, pulse 74, blood pressure 161/78, respirations 16 , saturation 98% on room air. GENERAL: On examination on admission to the medical/surgical floor the patient is resting comfortably, appears to be in no acute distress. She is alert, does appear dehydrated and frail. HEENT: Tympanic membranes are clear bilaterally. Oropharynx is pink. Mucous membranes are dry. She is edentulous. There are no lesions noted. NECK: Supple, non-tender with full range of motion. No jugular venous distention. CHEST: Lungs are clear to auscultation without rhonchi, rales, or wheezes. CARDIOVASCULAR: Regular rate and rhythm without appreciable murmurs, rubs, or gallops . ABDOMEN: Soft with mild tenderness on palpation in the epigastric area. No guarding, no rebound, no Pittman sign. Bowel sounds are positive. EXTREMITIES: No cyanosis, clubbing, or edema. NEUROLOGIC: She is alert and oriented x 3 with cranial nerves II through XII grossly intact. Facial features were symmetrical. Extraocular movement were within normal limits. There was no notable nystagmus. LABORATORY: CBC showed a mild leukocytosis of 11,200 with hemoglobin of 14.8 and hematocrit 44.4, platelet count 232,000, differential does show early left shift. Chemistries show a mild hypokalemia with a potassium of 3.0, carbon dioxide was low at 20 with BUN 11, creatinine 0.9, anion gap normal at 18. Glucose 119. Calcium 9.8. Liver functions all showed to be within normal limits as well as amylase and lipase. Urinalysis pending. RADIOLOGY: Abdominal series, 2-view, per radiology interpretation showed no evidence of obstruction, ileus or bowel wall thickening, both of large and small bowel. Overall, there was a normal bowel gas pattern without any lung parenchymal findings. There was note of a nonfocal eventration of the right hemidiaphragm but is unchanged from previous exam in 2015. ASSESSMENT: 1. Acute abdominal pain without any acute findings on examination or radiographic studies with pain noted to be in the epigastric region possibly related to possible viral gastroenteritis versus early biliary colic with no acute finding\s, again on exam or initial radiographic studies or laboratory studies. . 2. Moderate dehydration secondary to persistent nausea and vomiting for several days along with chronic diarrhea. 3. History of chronic diarrhea. 4. Hypertension with grade I diastolic dysfunction with last echocardiogram being in September of 2016 showing ejection fraction of 50%. 5. Status post CVA in 2008 with no residual side effects with patient being Plavix. 6. History of subarachnoid hemorrhage in 2014 secondary to Coumadin. 7. History of pulmonary embolism in the . 8. Chronic tobacco abuse. 9. Chronic obstructive pulmonary disease in a chronic smoker without evidence of acute exacerbation. 10. History of diverticulosis with no evidence of acute diverticulitis. 11. Mild leukocytosis possibly related to underlying dehydration versus demarginalization from acute pain and possible developing gastritis. 12. History of chronic pain in the lower back on multiple analgesics. 13. History of osteoporosis especially involving the knees and spine with chronic pain and on multiple analgesic regimen. 14. B12 deficiency. PLAN: The patient will be placed in observation tonight for close monitoring and further evaluation. She will be started on IV fluids in efforts to improve her hydration status with D5 half normal saline with 20 of potassium running at 80 an hour. She will be on DVT prophylaxis with Lovenox. Will resume her home medications when those have been updated and verified. We will provide pain control with morphine, however, the patient is on multiple analgesics so we will closely monitor as well as provide any need of antiemetics and such, will keep her n.p.o. until tomorrow and further clinical evaluation. Will plan to reevaluate the laboratory studies in the morning as well as additional abdominal x-ray series. Anticipate the patient's length of stay to be at least one or two days with possibly discharging Friday and depending on patient's clinical presentation, certainly m ay benefit from further diagnostic studies including a CT of the abdomen or ultrasound to further rule out any abdominal pain etiology such as gallstones. We will provide her with a nicotine patch given her smoking history. Until clinically stable and able to discharge, we will continue to monitor and treat appropriately. #[id number] [facility]
[2017-05-10] MEDS ORDERED: PROMETHAZINE HCL INJ 12.5 MG in SODIUM CHLORIDE 0.9% 50ML 50 ML IVPB ONE (13:48)
[2017-05-10] MEDS ORDERED: ACETAMINOPHEN 325 MG TAB PO PRN (13:49)
[2017-05-10] MEDS ORDERED: SODIUM CHLORIDE 0.9% (FLUSH) 10 ML SYG IV PRN (13:49)
[2017-05-10] MEDS ORDERED: PROMETHAZINE HCL INJ 25 MG/ML VIAL ONE (13:53)
[2017-05-10] MEDS ORDERED: SODIUM CHLORIDE 0.9% 50ML 50 ML ONE (13:54)
[2017-05-10] MEDS ORDERED: hydrOXYzine HCl 25 MG TAB PO PRN (13:57)
[2017-05-10] MEDS ORDERED: HYDROcodone 10MG/APAP 325MG 1 EA TAB PO PRN (13:57)
[2017-05-10] MEDS ORDERED: fentaNYL PATCH 50 MCG/HR 1 EA PATCH TD SCH (14:00)
[2017-05-10] MEDS ORDERED: IV SET AND CAP CHANGE INJ INJ SCH (14:00)
[2017-05-10] MEDS ORDERED: ONDANSETRON INJ 4 MG/2 ML VIAL IV PRN (14:02)
[2017-05-10] MEDS ORDERED: KCL 20MEQ/D5 1/2NS 1,000 ML IVS ONE (14:36)
[2017-05-10] MEDS: KCL 20MEQ/D5 1/2NS 1,000 ML IVS PRN (14:39)
[2017-05-10] MEDS ORDERED: MORPHINE SULFATE INJ 10 MG/ML VIAL IV PRN (16:06)
[2017-05-10] MEDS: GABAPENTIN 300 MG CAP PO SCH ×2 (16:30→20:48)
--- NOTE | 2017-05-10 16:41 | PCM.CORE ---
Physician DVT/VTE - Nurse DVT Assessment & Total Each Risk Factor Represents 3 Points: Age over 75 years, Family Hx thrombosis DVT Assessment Score: 6 - 5 or more Very High Risk Treatments: Early Ambulation *, Sequential Compression Device Pharmacological: Enoxaparin 40mg SQ Daily
[2017-05-10] MEDS ORDERED: ENOXAPARIN SODIUM 40 MG/0.4 ML SYG SUBCU SCH (17:00)
[2017-05-10] MEDS ORDERED: LEVOTHYROXINE SODIUM 0.112 MG TAB ONE (19:12)
[2017-05-10] MEDS: MORPHINE *IMMEDIATE RELEASE* 15 MG TAB PO SCH (20:47)
[2017-05-10] MEDS: MELOXICAM 7.5 MG TAB PO SCH (20:48)
[2017-05-10] MEDS: OXcarbazepine 300 MG TAB PO SCH (20:48)
[2017-05-10] MEDS ORDERED: CLOPIDOGREL 75 MG TAB PO SCH (21:00)
[2017-05-10] MEDS ORDERED: levETIRAcetam 250 MG TAB PO SCH (21:00)
[2017-05-10] MEDS ORDERED: OMEPRAZOLE CAP 20 MG CAP PO SCH (21:00)
[2017-05-11] MEDS: KCL 20MEQ/D5 1/2NS 1,000 ML IVS PRN (03:00)
[2017-05-11] MEDS ORDERED: LEVOTHYROXINE SODIUM 0.112 MG TAB PO SCH (06:30)
[2017-05-11] MEDS ORDERED: NON-FORMULARY MEDICATION 1 EA MIS (Tiotropium Bromide Monohydrate [Spiriva Respimat] 2 INH INH SCH (08:00)
[2017-05-11] MEDS ORDERED: ENOXAPARIN SODIUM 40 MG/0.4 ML SYG SUBCU SCH (09:00)
[2017-05-11] MEDS ORDERED: FLUoxetine HCL 20 MG CAP PO SCH (09:00)
[2017-05-11] MEDS ORDERED: ATENOLOL 25 MG TAB PO SCH (09:00)
[2017-05-11] MEDS ORDERED: predniSONE 5 MG TAB PO SCH (09:00)
[2017-05-11] MEDS: GABAPENTIN 300 MG CAP PO SCH (09:11)
[2017-05-11] MEDS: OXcarbazepine 300 MG TAB PO SCH (09:11)
[2017-05-11] MEDS: MORPHINE *IMMEDIATE RELEASE* 15 MG TAB PO SCH (09:11)
[2017-05-11] MEDS: MELOXICAM 7.5 MG TAB PO SCH (09:12)
[2017-05-11 11:09] VITALS: BP 142/76; TEMP 97.8; O2SAT 94
--- NOTE | 2017-05-12 08:10 | DS ---
DISCHARGE DIAGNOSIS: 1. Acute abdominal pain, probably related to esophagogastritis, possibly aggravated by chronic smoking, etc. Rule out underlying cholecystitis or cholelithiasis. 2. Moderate dehydration secondary to nausea and vomiting with diarrhea, helped fluid supplementation. 3. History of chronic, recurring diarrhea. 4. Hypertension with grade I diastolic dysfunction with last echocardiogram showing ejection fraction of 50%. 5. Status post cerebrovascular accident in 2008 with no residual side effects with patient currently on Plavix. 6. History of subarachnoid hemorrhage in 2014 secondary to Coumadin. 7. History of pulmonary embolism in the . 8. Chronic tobacco abuse, still smoking and encouraged to stop completely. 9. Chronic obstructive pulmonary disease in a chronic smoker without evidence of acute exacerbation at this time. 10. History of diverticulosis with no evidence of exacerbation. 11. Mild leukocytosis, showing improvement. 12. Chronic low back and arthritic pain on fentanyl and chronic hydrocodone treatment. 13. History of osteoporosis especially involving the spine and lower extremities. 14. History of B12 deficiency. 15. Gastroesophageal reflux disease, symptomatic. HISTORY OF PRESENT ILLNESS: This 81-year-old, white female was placed in the hospital for overnight observation after coming to the Emergency Room being referred from [facility] because of protracted active vomiting and abdominal pain. Laboratory studies as well as x-ray studies were performed and no specific abnormalities were noted, but her condition was severe enough with increased pain and underlying dehydration that she was placed in the hospital for overnight supportive care and management. She will have further followup with Dr. Schmitt in the medical clinic when stable. LABORATORY: white count 11,200, decreasing to 9,100. Hemoglobin stable at 13.6. Chemistry shows p.o. from 3 up to 3.4 with supplementation. BUN 7 at discharge, creatinine 0.69, osmolality did decrease to 264. Albumin 3.5. Pancreatic enzymes normal. Urinalysis shows a trace of hematuria. Abdominal x- ray reveals normal bowel gas pattern with moderate sized hiatal hernia present. HOSPITAL COURSE: The patient was feeling much improved with no further nausea, vomiting or diarrhea and abdominal pain had lessened significantly at the time of her discharge. She was not complaining of significant pain having had some morphine earlier in the evening. PLAN: The patient will be discharged to have further followup in the outpatient department with Dr. Schmitt. She is scheduled to have a gallbladder ultrasound exam on the morning of Friday without eating breakfast. Results will be reviewed with Dr. Schmitt at the appointment already set at 1 PM. She is encouraged to stop all smoking. Exercise more by walking and using arm exercises. Avoid more than 2 to 3 cups of coffee per day. Try a low-fat diet. Try to decrease the volume of pain medications taken which may contribute to some of her abdominal discomfort. Avoid constipation. Return if not improving. #[id number] [facility]TD[facility]
[2017-05-26] MEDS ORDERED: CYANOCOBALAMIN INJ 1,000 MCG/ML INJ IM SCH (09:00)
== END 2017-05-11 13:45 | disposition home or self-care (01) ==
LOC: ER 11:08 → MS 13:38
PROVIDERS: ADMIT Nurse Practitioner Family; ATTEND Emergency Medicine
DX: E86.0 Dehydration (principal); R10.13 Epigastric pain; E87.6 Hypokalemia; K52.89 Other specified noninfective gastroenteritis and colitis; I10 Essential (primary) hypertension; F17.210 Nicotine dependence, cigarettes, uncomplicated; K57.30 Diverticulosis of large intestine without perforation or abscess without bleeding; D72.829 Elevated white blood cell count, unspecified; G89.29 Other chronic pain; M81.0 Age-related osteoporosis without current pathological fracture; E53.8 Deficiency of other specified B group vitamins; K21.9 Gastro-esophageal reflux disease without esophagitis; Z79.02 Long term (current) use of antithrombotics/antiplatelets; Z79.1 Long term (current) use of non-steroidal anti-inflammatories (NSAID); Z79.52 Long term (current) use of systemic steroids; Z79.891 Long term (current) use of opiate analgesic; Z79.899 Other long term (current) drug therapy; Z88.0 Allergy status to penicillin; Z88.2 Allergy status to sulfonamides; Z88.1 Allergy status to other antibiotic agents; Z88.8 Allergy status to other drugs, medicaments and biological substances; Z86.73 Personal history of transient ischemic attack (TIA), and cerebral infarction without residual deficits; Z86.718 Personal history of other venous thrombosis and embolism
CPT/HCPCS: 36415 ×2; 74019; 80053 ×2; 81001; 82150; 83690; 85025 ×2; 94760 ×2; 96365; 96372 ×2; 96375 ×2; 96376; 99284; 99406; A4216; G0378; J1650 ×2; J2270; J2405; J2550; J7040; J7512

== ENCOUNTER → 2017-05-13 | Outpatient (CLI) | payer MEDICARE, OTHER ==
--- NOTE | 2017-05-13 16:45 | US ---
EXAM DESCRIPTION: Gall Bladder: ULTRASOUND. CLINICAL HISTORY: NAUSEA, VOMITING COMPARISON: CT abdomen 06/02/2014. TECHNIQUE: Transabdominal scannin-dimensional and Doppler modes. FINDINGS: Gallbladder: normal size, shape, echogenicity; no intraluminal stones or sludge. No fluid around the gallbladder. No wall thickening. 2.0 mm. Non-tender with transducer pressure. Common bile duct: caliber 6.6 mm upper normal limits. Liver: normal echogenicity; contour liver capsule smooth where seen. No fluid around the liver. Intrahepatic biliary ducts normal caliber. Doppler hepatopedal flow portal vein.. Long axis right lobe 11.4 cm. Pancreas: normal size and echogenicity. Duct not seen. Proximal abdominal aorta: Not visualized. IVC: visualized and normal caliber. Right kidney: long axis measures 11.1 cm. Normal Echogenicity. Normal cortical thickness. No hydronephrosis. 10 x 11 mm cyst is unremarkable. IMPRESSION: 1. Normal ultrasound of the gallbladder liver pancreas. No ascites. Normal vascularity. Normal intrahepatic and extrahepatic ducts. 2. 11 mm cyst right kidney, otherwise unremarkable. Radiodense object is noted on the lateral right kidney in 2014. Normal caliber of the IVC. Abdominal aorta not visualized. Electronically signed by: Ronny Bridges MD 05/13/2017 4:44 PM DIVIDING MACHINE OPERATOR
== END ==
LOC: US 10:01
PROVIDERS: ATTEND Emergency Medicine
DX: R11.2 Nausea with vomiting, unspecified (principal)

== ENCOUNTER → 2017-05-26 | Outpatient (CLI) | payer MEDICARE, OTHER ==
--- NOTE | 2017-05-26 20:14 | RAD ---
EXAM DESCRIPTION: Barium Swallow: Rad-Fluoroscopy. CLINICAL HISTORY: DYSPHAGIA, UNSPECIFIED COMPARISON: None TECHNIQUE: Preliminary AP business banking representative radiograph. The patient swallowed barium pill with water. The patient swallowed gas-producing granules, water, and heavy density barium under fluoroscopic visualization. The images were obtained with the patient standing; prone and supine. Patient drank medium density barium through a straw in the semi-prone position. 18 fluoroscopic cine loop images. 5 static fluoroscopic images. Total fluoroscopy time was 1.5 minutes. DAP: 41.14 mGy. FINDINGS: Patient was unable to dry swallow the barium pill. Even with 2 swallows of water, the pill lodged in the junction of the middle third and distal third of the esophagus. No additional swallow of water movement the peel into the upper stomach. The pill remained in the gastric fundus for the entire examination Premature spillage of contrast in the pyriform sinuses prior to swallowing. No ayush aspiration or laryngeal penetration. Delayed transit of contrast from the mid and distal esophagus into the stomach. Secondary contractions in the mid to distal stomach. No obvious mucosal lesions. No mass effect. Small sliding hiatal hernia. No gastroesophageal obstruction. No mass effect. No gastroesophageal reflux. IMPRESSION: Premature spillage of contrast into the bilateral piriform sinuses. No penetration or aspiration. Delayed emptying of the middle third and distal third of the esophagus with secondary contractions. No mass effect or mucosal lesions. Small sliding hiatal hernia. No gastroesophageal obstruction. No gastroesophageal reflux. Delayed passage of the barium pill from the fundus of the stomach. Electronically signed by: Ronny Bridges MD 05/26/2017 8:13 PM CDT Workstation: [id number]
== END ==
LOC: RAD 09:00
PROVIDERS: ATTEND Family Medicine
DX: R13.10 Dysphagia, unspecified (principal)

== ENCOUNTER → 2017-08-22 | Outpatient (CLI) | payer MEDICARE, OTHER ==
--- NOTE | 2017-08-22 15:03 | CT ---
EXAM DESCRIPTION: Lumbar Spine CLINICAL HISTORY: 82 years Female, pain COMPARISON: CT abdomen and pelvis dated 05/08/2017. TECHNIQUE: Contiguous axial images of the lumbar spine were obtained without intravenous contrast administration. Sagittal and coronal reconstructions were reviewed. FINDINGS: There is evidence of levoscoliosis of the lumbar spine with multilevel degenerative changes. The vertebral body heights are well-maintained with no acute compression deformity. Multilevel degenerative disc disease is identified. Grade 1 retrolisthesis of L5 over L2 is noted. Grade 1 anterolisthesis of L3 over L4 and L4 over L5 is identified. This is secondary to facet arthropathy. No evidence of pars interarticularis defects. L1-L2 level: There is mild canal stenosis, severe right and [id number] left neural foraminal narrowing. L2-L3 level: Mild canal stenosis and mild bilateral neural foraminal narrowing is noted. L3-L4 level: Pseudodisc bulge and bilateral facet arthropathy with resultant severe canal stenosis and moderate bilateral neural foraminal narrowing is noted. L4-L5 level: Disc bulge and bilateral facet arthropathy with resultant moderate canal stenosis and moderate bilateral neural foraminal narrowing. L5-S1 level: No significant canal stenosis or neural foraminal narrowing. The abdominal aorta is ectatic with moderate atherosclerotic disease. 1.1 cm hyperdense cyst is noted in the interpolar region of the right kidney. The visualized colon demonstrates multiple diverticula. IMPRESSION: 1. Levoscoliosis of the lumbar spine with multilevel degenerative changes as detailed above. 2. Ectatic abdominal aorta with moderate atherosclerosis disease. 3. Colonic diverticulosis. This exam was performed according to our departmental dose-optimization program, which includes automated exposure control, adjustment of the mA and/or kV according to patient size and/or use of iterative reconstruction technique. Electronically signed by: Nena Bland MD 08/22/2017 3:02 PM CDT
--- NOTE | 2017-08-22 15:05 | CT ---
EXAM DESCRIPTION: Thoracic Spine CLINICAL HISTORY: 82 years Female, RADIOCULOPATHY, LUMBAR REGION; MYALGIA COMPARISON: None. TECHNIQUE: Contiguous axial images through the thoracic spine were obtained without intravenous contrast administration. Sagittal and coronal reconstructions were reviewed. FINDINGS: The vertebral body heights are well-maintained with no acute compression deformity. There is multilevel degenerative disc disease and facet arthropathy with no significant canal stenosis. No significant neural foraminal narrowing is noted throughout the thoracic spine. The visualized thoracic aorta is ectatic with moderate atherosclerosis. Mild emphysematous changes are identified in the bilateral upper lobes. IMPRESSION: Multilevel degenerative disc disease. No acute abnormality. This exam was performed according to our departmental dose-optimization program, which includes automated exposure control, adjustment of the mA and/or kV according to patient size and/or use of iterative reconstruction technique. Electronically signed by: Nena Bland MD 08/22/2017 3:04 PM CDT
== END ==
LOC: CT 08:44
PROVIDERS: ATTEND Psychiatry & Neurology Neurology
DX: M54.16 Radiculopathy, lumbar region (principal); M79.1 Myalgia; I71.4 Abdominal aortic aneurysm, without rupture; K57.30 Diverticulosis of large intestine without perforation or abscess without bleeding; M41.9 Scoliosis, unspecified

== ENCOUNTER → 2017-09-10 | Outpatient (CLI) | payer MEDICARE, OTHER | LOC: BFHH 09:13 | PROVIDERS: ATTEND Family Medicine | DX: D51.8 Other vitamin B12 deficiency anemias (principal); I10 Essential (primary) hypertension; E55.9 Vitamin D deficiency, unspecified ==

== ENCOUNTER → 2017-11-12 | Outpatient (CLI) | payer MEDICARE, OTHER | LOC: BFHH 13:20 | PROVIDERS: ATTEND Family Medicine | DX: I10 Essential (primary) hypertension (principal) ==

== ENCOUNTER → 2017-12-17 | Outpatient (CLI) | payer MEDICARE, OTHER | LOC: BFHH 13:40 | PROVIDERS: ATTEND Family Medicine | DX: R30.9 Painful micturition, unspecified (principal) ==

== ENCOUNTER → 2018-02-04 | Outpatient (CLI) | payer MEDICARE, OTHER | LOC: BFHH 10:19 | PROVIDERS: ATTEND Family Medicine | DX: R30.9 Painful micturition, unspecified (principal) ==

== ENCOUNTER → 2018-02-18 | Outpatient (CLI) | payer MEDICARE, OTHER | LOC: GMAL 19:15 | PROVIDERS: ATTEND Family Medicine | DX: E03.9 Hypothyroidism, unspecified (principal) ==

== ENCOUNTER → 2018-03-23 | Outpatient (CLI) | payer MEDICARE, OTHER ==
--- NOTE | 2018-03-23 16:32 | US ---
EXAM DESCRIPTION: Venous,Lower Extremity LT CLINICAL HISTORY: R60.0 left lower extremity swelling and edema COMPARISON: None Available. TECHNIQUE: Left lower extremity venous duplex FINDINGS: Doppler evaluation of the left lower extremity deep veins was performed. Normal color flow is seen in the common femoral, superficial femoral, profunda femoral and greater saphenous veins. Normal flow is seen in the popliteal vein and veins below the knee in the calf. Normal venous compressibility and flow augmentation. Edema is seen in the subcutaneous fat of the left lower extremity. IMPRESSION: Negative for evidence of deep venous thrombosis on left lower extremity venous Doppler sonogram. Electronically signed by: Angel Croft MD 03/23/2018 4:[address]
--- NOTE | 2018-03-23 16:36 | US ---
Exam: Left lower extremity arterial Doppler sonogram CLINICAL HISTORY: R60.0 edema of the lower extremity left TECHNIQUE: Doppler sonographic evaluation of the left lower extremity was performed. FINDINGS: Left Submitted sonographic images reveal patent vessels with no significant stenosis. Normal flow velocities with multiphasic flow throughout the left lower extremity. Mild arteriosclerotic plaque. The following peak systolic flow flow velocity measurements were obtained: Common femoral artery velocity equals 141 centimeters per second , triphasic. Superficial femoral artery velocity equals 83-97 centimeters per second , triphasic. Popliteal artery velocity equals 66 centimeters per second , triphasic. Peroneal artery velocity equals 30 centimeters per second , biphasic. Posterior tibial artery velocity equals 93 centimeters per second , triphasic. Dorsalis pedis artery velocity equals 56 centimeters per second , monophasic. IMPRESSION: No significant stenosis. Electronically signed by: Angel Croft MD 03/23/2018 4:35 PM SHORE WORKER
== END ==
LOC: US 14:54
PROVIDERS: ATTEND Family Medicine
DX: R60.0 Localized edema (principal)

== ENCOUNTER → 2018-04-02 | Outpatient (CLI) | payer MEDICARE, OTHER | LOC: GMAL 16:06 | PROVIDERS: ATTEND Family Medicine | DX: E03.9 Hypothyroidism, unspecified (principal) ==

== ENCOUNTER → 2018-07-08 | Outpatient (CLI) | payer MEDICARE, OTHER | LOC: BFHH 09:43 | PROVIDERS: ATTEND Family Medicine | DX: D51.8 Other vitamin B12 deficiency anemias (principal); I50.9 Heart failure, unspecified; I48.91 Unspecified atrial fibrillation ==

== ENCOUNTER 2018-09-14 05:39 | Emergency (ER) | payer MEDICARE, OTHER ==
--- NOTE | 2018-09-14 05:57 | ED.PDOC ---
History of Present Illness - General Chief Complaint: General Stated Complaint: Fever and weakness Time Seen by Provider: 09/14/18 05:53 Source: family - son - History of Present Illness Initial Comments: Elyssa Jackson 83 y/o female brought by EMS after she was found in the commode this am unable to get up was weak and go to her bed after son went to her house and check on her.She was in the same situation yesterday was helped by her son back to her bed and lay down in bed all day and just had soup all day yesterday. Timing/Duration: other - 48 hours Severity: moderate Improving Factors: nothing Worsening Factors: nothing Associated Symptoms: weakness Allergies/Adverse Reactions: Allergies Rosuvastatin [From Crestor] Allergy (Severe, Verified 05/10/17 14:12) Other CI Pigment Blue 63 [From Cymbalta] Allergy (Intermediate, Verified 05/10/17 1 4:12) Vomitting Duloxetine [From Cymbalta] Allergy (Intermediate, Verified 05/10/17 14:12) Vomitting Sulfa Antibiotics Allergy (Intermediate, Verified 05/10/17 14:12) Hives Penicillin G Allergy (Mild, Verified 05/10/17 14:12) Rash Ciprofloxacin Allergy (Verified 05/10/17 14:12) Varenicline [From Chantix] Adverse Reaction (Intermediate, Verified 05/10/17 14:12) Vomitting Home Medications: Ambulatory Orders HYDROcodone 10MG/APAP 325MG [[place] 10/325] 1 tablet PO TID PRN 03/01/13 predniSONE [PredniSONE] 5 mg PO DAILY 03/01/13 Levothyroxine Sodium [Levoxyl] 112 mcg PO DAILY 09/14/14 Cyanocobalamin Inj [Vitamin B-12 Inj] 1,000 mcg IM MONTHLY 02/18/15 Atenolol [Tenormin] 25 mg PO DAILY 06/23/16 Fluoxetine HCl [Prozac] 60 mg PO DAILY 06/23/16 Levetiracetam [Keppra] 1,000 mg PO BEDTIME 06/23/16 Omeprazole [Prilosec Cap] 40 mg PO BEDTIME 06/23/16 fentaNYL PATCH 50 MCG/HR [Duragesic Patch 50 MCG/HR] 1 ea TD Q72H #1 patch 06/28/16 Tiotropium [place] Monohydrate [Spiriva Respimat] 2 puff INH RTDAILY 02/06/17 hydrOXYzine HCl [Atarax] 25 mg PO 1200 05/08/17 Cetirizine HCl 10 mg PO DAILY PRN 05/11/17 Sucralfate Tab [Carafate Tab] 1 gm PO PC #60 tablet 05/11/17 Lisinopril 5 mg PO DAILY 09/14/18 Mirabegron [Myrbetriq] 25 mg PO DAILY 09/14/18 Primidone 50 mg PO DAILY 09/14/18 Review of Systems - Review of Systems Constitutional: States: weakness EENTM: States: no symptoms reported Respiratory: States: no symptoms reported Cardiology: States: no symptoms reported Gastrointestinal/Abdominal: States: diarrhea - chronic Genitourinary: States: no symptoms reported Musculoskeletal: States: no symptoms reported Skin: States: no symptoms reported Neurological: States: no symptoms reported All other Systems: Reviewed and Negative, No Change from Baseline Past Medical History (General) - Patient Medical History Hx Seizures: Yes Hx Stroke: No Hx Asthma: No Hx of COPD: Yes Hx Cardiac Disorders: Yes - DVT, PE Hx Congestive Heart Failure: No Hx Pacemaker: No Hx Hypertension: Yes Hx Thyroid Disease: Yes Hx Diabetes: No Hx Hepatitis C: No Hx MRSA: No Surgical History: appendectomy, other - hysterectomy - Vaccination History Hx Influenza Vaccination: Yes Hx Pneumococcal Vaccination: Yes - Social History Hx Tobacco Use: Yes Hx Alcohol Use: No Hx Substance Use: No Hx Physical Abuse: No Hx Emotional Abuse: No - Activities of Daily Living Patient Lives Alone: Yes Grooming Ability: Independent Eating (Feeding) Ability: Independent Toileting Ability: Independent - Female History Patient : Yes Family Medical History - Family History Mother Living Status: Hx Family Asthma: No Hx Family Congestive Heart Failure: Yes - mom Hx Family Hypertension: Yes - dad Hx Family Stroke: No Hx Cardiac Disease: No Hx Family Diabetes: Yes - dad Hx Family Cancer: Yes - multiple family members-brain,gastric Physical Exam - Physical Exam General Appearance: Alert, Comfortable, No apparent distress Eye Exam: bilateral other - wears glasses Ears, Nose, Throat: normal ENT inspection, hearing decreased Neck: supple, normal inspection Respiratory: chest non-tender, no respiratory distress, rales - bases Cardiovascular/Chest: normal peripheral pulses, regular rate, rhythm, no murmur Peripheral Pulses: radial,right: 2+, radial,left: 2+ Gastrointestinal/Abdominal: non tender, soft, no organomegaly Back Exam: no CVA tenderness, no vertebral tenderness Extremity: pelvis stable - but pain on movement Neurologic: alert Skin Exam: normal color, warm/dry Progress - Progress Progress: 09/14/18 06:28 Vital Signs - 8 hr 09/14/18 05:51 Temperature 98.1 F Pulse Rate [ 81 Left] Respiratory 18 Rate Blood Pressure 147/76 [Right Arm] O2 Sat by Pulse 95 Oximetry - Results/Orders Results/Orders: Laboratory Tests 09/14/18 09/14/18 09/14/18 06:09 06:09 06:28 WBC 11.9 H RBC 4.04 L Hgb 12.4 Hct 37.8 MCV 93.5 MCH 30.7 MCHC 32.9 L RDW 15.4 H Plt Count 127 L MPV 8.5 Absolute Neuts (auto) 10.60 H Absolute Lymphs (auto) 0.50 L Absolute Monos (auto) 0.70 Absolute Eos (auto) 0.00 Absolute Basos (auto) 0.00 Neutrophils % 89.3 H Lymphocytes % 4.2 L Monocytes % 5.9 Eosinophils % 0.2 L Basophils % 0.4 PT 11.5 H INR 1.15 PTT (SP) 31.0 Sodium 135 Potassium 2.7 L Chloride 99 L Carbon Dioxide 22 Anion Gap 16.7 BUN 15 Creatinine 1.06 BUN/Creatinine Ratio 14.2 Random Glucose 86 Serum Osmolality 270.2 L Lactic Acid 0.8 Calcium 8.9 Magnesium 1.4 L Total Bilirubin 1.0 Direct Bilirubin 0.2 Indirect Bilirubin 0.8 AST 27 ALT 16 Alkaline Phosphatase 50 Creatine Kinase 384 H* CK-MB (CK-2) 1.9 CK-MB (CK-2) % Not Reportable Troponin I 0.16 H* Serum Total Protein 6.0 L Albumin 2.9 L Urine Color Yellow Urine Appearance Cloudy Urine pH 5.5 Ur Specific [place] 1.020 Urine Protein 100 H Urine Glucose (UA) Negative Urine Ketones 40 H Urine Blood Moderate H Urine Nitrite Positive H Urine Bilirubin Negative Urine Urobilinogen 0.2 Ur Leukocyte Esterase Small H Urine RBC 3-5 H Urine WBC Tntc H Ur Epithelial Cells 1-3 Urine Bacteria 4+ H - EKG/XRAY/CT EKG: Sinus, LBBB Comments: HR-72 XRAY: chest - cardiomegaly Departure - Departure Clinical Impression: Malaise and fatigue, NSTEMI (non-ST elevation myocardial infarction), Hypokalemia, Hypomagnesemia Urinary tract infection Qualifiers: Urinary tract infection type: site unspecified Hematuria presence: with hematuria Qualified Code(s): N39.0 - Urinary tract infection, site not specified Time of Disposition: 07:28 Disposition: Transfer to Hospital Condition: Fair Departure Forms: Patient Portal Self Enrollment Referrals: Reji Schmitt III, MD [Primary Care Provider] - 1-2 Weeks Home Medications: Ambulatory Orders HYDROcodone 10MG/APAP 325MG [[place] 10/325] 1 tablet PO TID PRN 03/01/13 predniSONE [PredniSONE] 5 mg PO DAILY 03/01/13 Levothyroxine Sodium [Levoxyl] 112 mcg PO DAILY 09/14/14 Cyanocobalamin Inj [Vitamin B-12 Inj] 1,000 mcg IM MONTHLY 02/18/15 Atenolol [Tenormin] 25 mg PO DAILY 06/23/16 Fluoxetine HCl [Prozac] 60 mg PO DAILY 06/23/16 Levetiracetam [Keppra] 1,000 mg PO BEDTIME 06/23/16 Omeprazole [Prilosec Cap] 40 mg PO BEDTIME 06/23/16 fentaNYL PATCH 50 MCG/HR [Duragesic Patch 50 MCG/HR] 1 ea TD Q72H #1 patch 06/28/16 Tiotropium [place] Monohydrate [Spiriva Respimat] 2 puff INH RTDAILY 02/06/17 hydrOXYzine HCl [Atarax] 25 mg PO 1200 05/08/17 Cetirizine HCl 10 mg PO DAILY PRN 05/11/17 Sucralfate Tab [Carafate Tab] 1 gm PO PC #60 tablet 05/11/17 Lisinopril 5 mg PO DAILY 09/14/18 Mirabegron [Myrbetriq] 25 mg PO DAILY 09/14/18 Primidone 50 mg PO DAILY 09/14/18 Transfer to Outside Facility - Transfer Information Accepting Provider:: Dr. 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
--- NOTE | 2018-09-14 06:24 | RAD ---
CHEST, ONE VIEW XR 09/14/2018 CLINICAL HISTORY: Weakness COMPARISON: Chest 05/08/2017. TECHNIQUE: AP Chest. FINDINGS: The cardiac size is mildly enlarged. Thoracic aorta is tortuous with moderate atherosclerosis. There is mild pulmonary edema. Right lower lobe atelectasis persists. 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 IMPRESSION: 1. Cardiomegaly with senescent aorta. Mild pulmonary edema. 2. 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 Electronically signed by: Sandra Talamantes DO 09/14/2018 6:22 AM CDT
[2018-09-14] MEDS ORDERED: KCL 40MEQ/NS 1,000 ML IVS PRN (06:27)
[2018-09-14] MEDS ORDERED: MAGNESIUM SULFATE PREMIX 2GM 2 GM in PREMIX BAG 1 BAG IVPB ONE (06:36)
[2018-09-14] MEDS ORDERED: MAGNESIUM SULFATE PREMIX 2GM 50 ML IVPB ONE (06:40)
--- NOTE | 2018-09-14 07:19 | RAD ---
EXAM DESCRIPTION: Pelvis, single view CLINICAL HISTORY: pain FINDINGS/ IMPRESSION: Osteopenia. Limited evaluation of the sacrum No fracture of the proximal femora or pelvis. Moderate osteoarthritis of the sacroiliac joints Electronically signed by: Tony Martin MD 09/14/2018 7:17 AM CDT
[2018-09-14] MEDS ORDERED: MEROPENEM 500 MG in SODIUM CHL 0.9% 50ML MIN-BAG+ 50 ML IVPB ONE (07:25)
[2018-09-14] MEDS ORDERED: ASPIRIN (CHEWABLE) 81 MG TAB PO ONE (07:27)
[2018-09-14] MEDS ORDERED: MEROPENEM 500 MG VIAL IVPB ONE (07:32)
[2018-09-14] MEDS ORDERED: ENOXAPARIN SODIUM 60 MG/0.6 ML SYG SUBCU ONE (07:32)
[2018-09-14] MEDS ORDERED: SODIUM CHL 0.9% 50ML MIN-BAG+ 50 ML IVPB ONE (07:33)
[2018-09-14 08:06] VITALS: BP 160/82; O2SAT 97
[2018-09-14 19:32] VITALS: TEMP 98.5
== END 2018-09-14 08:10 | disposition short-term general hospital (02) ==
LOC: ER 05:39
DX: I21.4 Non-ST elevation (NSTEMI) myocardial infarction (principal); N39.0 Urinary tract infection, site not specified; R31.9 Hematuria, unspecified; E87.6 Hypokalemia; E83.42 Hypomagnesemia; R53.81 Other malaise; R53.83 Other fatigue; I44.7 Left bundle-branch block, unspecified; M47.898 Other spondylosis, sacral and sacrococcygeal region; J44.9 Chronic obstructive pulmonary disease, unspecified; I10 Essential (primary) hypertension; E07.9 Disorder of thyroid, unspecified; R56.9 Unspecified convulsions; Z87.891 Personal history of nicotine dependence; Z86.718 Personal history of other venous thrombosis and embolism; Z86.711 Personal history of pulmonary embolism; Z79.899 Other long term (current) drug therapy; Z88.8 Allergy status to other drugs, medicaments and biological substances; Z88.0 Allergy status to penicillin; Z88.1 Allergy status to other antibiotic agents
CPT/HCPCS: 36415; 71045; 72170; 80048; 80076; 81001; 82550; 82553; 83605; 84484; 85025; 85610; 85730; 87086; 93005; J1650; J2185; J3475; J3480; J7050

== ENCOUNTER → 2018-10-07 | Outpatient (CLI) | payer MEDICARE, OTHER | LOC: BFHH 13:15 | PROVIDERS: ATTEND Family Medicine | DX: N39.0 Urinary tract infection, site not specified (principal); I11.0 Hypertensive heart disease with heart failure; E03.9 Hypothyroidism, unspecified ==

== ENCOUNTER → 2018-11-27 | Outpatient (CLI) | payer MEDICARE, OTHER | LOC: BFHH 09:37 | PROVIDERS: ATTEND Family Medicine | DX: D51.8 Other vitamin B12 deficiency anemias (principal); I11.0 Hypertensive heart disease with heart failure; I50.9 Heart failure, unspecified; J44.9 Chronic obstructive pulmonary disease, unspecified; M47.27 Other spondylosis with radiculopathy, lumbosacral region; M15.0 Primary generalized (osteo)arthritis; G89.4 Chronic pain syndrome; R30.0 Dysuria ==

== ENCOUNTER → 2019-03-02 | Outpatient (CLI) | payer MEDICARE, OTHER ==
--- NOTE | 2019-03-05 14:43 | MAM ---
EXAM DESCRIPTION: 3D Screening BILATERAL : Digital Mammography. CLINICAL HISTORY: 83 years Female ANNUAL SCREENING . No complaints. No personal or family history of breast cancer. Menarche age 14. Childbirth age 19. Menopausal age 62. No HRT. Lifetime risk of developing breast cancer (Tyrer-Cuzick model)(%): 1.7. COMPARISON: 2-D digital screening bilateral mammography January 2015.. TECHNIQUE: Bilateral CC and MLO projection full-field images, digital tomosynthesis mammographic technique. Bilateral digital 2-D full-field MLO images. CAD not available for tomosynthesis or 2-D images. FINDINGS: The breast parenchymal density pattern is: Scattered areas of fibroglandular density. No skin thickening or nipple retraction. Bilateral solitary microcalcifications. Bilateral vascular calcifications. Bilateral mole markers. No new focal, stellate mass or density, focal asymmetry , and no suspicious microcalcifications bilaterally. Stable mammograms compared to prior study. Taking into account, differences in mammographic technique. IMPRESSION: Benign exam. BIRAD CATEGORY: 2 BENIGN FINDINGS. RECOMMENDATIONS: FOLLOW UP: Routine digital bilateral mammographic screening, one year interval from February 2019. Written communication explaining the IMPRESSION and follow-up, will be mailed to the patient and referring health care provider. According to the [employer], yearly mammograms are recommended starting at age 40 and continuing as long as a woman is in good health. Any breast change noted on a breast self-exam should be reported promptly to the patient's healthcare provider. Breast MRI is recommended for women with an approximately 20-25% or greater lifetime risk of breast cancer, including women with a strong family history of breast or ovarian cancer and women who have been treated for Hodgkin's disease. A negative mammographic report should not delay tissue diagnosis in patients with significant clinical history or physical findings. Extremely dense breast tissue limits the sensitivity of digital mammography. Electronically signed by: Ronny Bridges MD 03/05/2019 2:41 PM SHANK BONER
== END ==
LOC: MAMMO 14:52
PROVIDERS: ATTEND Family Medicine
DX: Z12.31 Encounter for screening mammogram for malignant neoplasm of breast (principal); E03.9 Hypothyroidism, unspecified; Z79.899 Other long term (current) drug therapy

== ENCOUNTER → 2019-06-04 | Outpatient (CLI) | payer MEDICARE, OTHER | LOC: BFHH 20:24 | PROVIDERS: ATTEND Family Medicine | DX: Z13.29 Encounter for screening for other suspected endocrine disorder (principal); Z83.3 Family history of diabetes mellitus; D51.8 Other vitamin B12 deficiency anemias; M47.27 Other spondylosis with radiculopathy, lumbosacral region; I11.0 Hypertensive heart disease with heart failure ==

== ENCOUNTER → 2019-06-25 | Outpatient (CLI) | payer MEDICARE, OTHER | LOC: BFHH 12:56 | PROVIDERS: ATTEND Family Medicine | DX: D51.8 Other vitamin B12 deficiency anemias (principal); M47.27 Other spondylosis with radiculopathy, lumbosacral region; I11.0 Hypertensive heart disease with heart failure; N39.0 Urinary tract infection, site not specified ==

== ENCOUNTER → 2019-07-06 | Outpatient (CLI) | payer MEDICARE, OTHER | LOC: BFHH 11:31 | PROVIDERS: ATTEND Family Medicine | DX: D51.8 Other vitamin B12 deficiency anemias (principal); I11.0 Hypertensive heart disease with heart failure; I50.9 Heart failure, unspecified; J44.9 Chronic obstructive pulmonary disease, unspecified; I48.91 Unspecified atrial fibrillation; Z79.02 Long term (current) use of antithrombotics/antiplatelets; Z79.52 Long term (current) use of systemic steroids ==

== ENCOUNTER → 2019-09-29 | Outpatient (CLI) | payer MEDICARE, OTHER | LOC: BFHH 10:57 | PROVIDERS: ATTEND Family Medicine | DX: D51.0 Vitamin B12 deficiency anemia due to intrinsic factor deficiency (principal); I11.0 Hypertensive heart disease with heart failure; I50.9 Heart failure, unspecified; J44.9 Chronic obstructive pulmonary disease, unspecified; G89.4 Chronic pain syndrome; I48.91 Unspecified atrial fibrillation; M47.27 Other spondylosis with radiculopathy, lumbosacral region; D51.9 Vitamin B12 deficiency anemia, unspecified; R73.02 Impaired glucose tolerance (oral); E55.9 Vitamin D deficiency, unspecified ==

== ENCOUNTER 2019-11-09 06:30 | Emergency (ER) | payer MEDICARE, OTHER ==
--- NOTE | 2019-11-09 06:56 | ED.PDOC ---
History of Present Illness - General Source: patient Exam Limitations: clinical condition - History of Present Illness Initial Comments: The patient is an 85-year-old female presented emergency room from home secondary to 2 to 3 days of nausea and vomiting. The patient feels very weak and dizzy. Most of the discomfort is in her upper abdomen. She thinks that she has fallen a couple of times at home over the last few days. She has had a little bit of diarrhea as well. She does not think that she has had any fevers. No real runny nose or sore throat. No obvious focal neurological changes, the patient is very drowsy. The patient does have scattered small bruising. Patient does have significant history of COPD significant electrolyte disorder. Timing/Duration: other - 2 days Severity: severe Improving Factors: nothing Worsening Factors: eating Associated Symptoms: loss of appetite, malaise, nausea/vomiting, shortness of breath, weakness <Martin Freedman - Last Filed: 11/09/19 06:54> <Dano Rutledge - Last Filed: 11/09/19 09:16> - General Chief Complaint: Abdominal Pain Stated Complaint: N/V/D abdomen pain Time Seen by Provider: 11/09/19 06:38 - History of Present Illness Allergies/Adverse Reactions: Allergies Rosuvastatin [From Crestor] Allergy (Severe, Verified 05/10/17 14:12) Other CI Pigment Blue 63 [From Cymbalta] Allergy (Intermediate, Verified 05/10/17 14:12) Vomitting Duloxetine [From Cymbalta] Allergy (Intermediate, Verified 05/10/17 14:12) Vomitting Sulfa Antibiotics Allergy (Intermediate, Verified 05/10/17 14:12) Hives Penicillin G Allergy (Mild, Verified 05/10/17 14:12) Rash Ciprofloxacin Allergy (Verified 05/10/17 14:12) Varenicline [From Chantix] Adverse Reaction (Intermediate, Verified 05/10/17 14:12) Vomitting Home Medications: Ambulatory Orders HYDROcodone 10MG/APAP 325MG [[place] 10/325] 1 tablet PO TID PRN 03/01/13 predniSONE [PredniSONE] 5 mg PO DAILY 03/01/13 Levothyroxine Sodium [Levoxyl] 112 mcg PO DAILY 09/14/14 Cyanocobalamin Inj [Vitamin B-12 Inj] 1,000 mcg IM MONTHLY 02/18/15 Atenolol [Tenormin] 25 mg PO DAILY 06/23/16 Fluoxetine HCl [Prozac] 60 mg PO DAILY 06/23/16 Levetiracetam [Keppra] 1,000 mg PO BEDTIME 06/23/16 Omeprazole [Prilosec Cap] 40 mg PO BEDTIME 06/23/16 fentaNYL PATCH 50 MCG/HR [Duragesic Patch 50 MCG/HR] 1 ea TD Q72H #1 patch 06/28/16 Tiotropium [place] Monohydrate [Spiriva Respimat] 2 puff INH RTDAILY 02/06/17 hydrOXYzine HCl [Atarax] 25 mg PO 1200 05/08/17 Cetirizine HCl [Cetirizine Hydrochloride] 10 mg PO DAILY PRN 05/11/17 Sucralfate Tab [Carafate Tab] 1 gm PO PC #60 tablet 05/11/17 Lisinopril 5 mg PO DAILY 09/14/18 Mirabegron [Myrbetriq] 25 mg PO DAILY 09/14/18 Primidone 50 mg PO DAILY 09/14/18 Review of Systems - Review of Systems Constitutional: States: malaise, weakness EENTM: States: no symptoms reported Respiratory: States: short of breath - Chronic Cardiology: States: no symptoms reported Gastrointestinal/Abdominal: States: abdominal pain, diarrhea, nausea, vomiting Genitourinary: States: no symptoms reported Musculoskeletal: States: no symptoms reported Skin: States: no symptoms reported Neurological: States: weakness - Generalized Endocrine: States: no symptoms reported All other Systems: No Change from Baseline <Martin Freedman - Last Filed: 11/09/19 06:54> Past Medical History (General) - Patient Medical History Hx Seizures: Yes Hx Stroke: No Hx Asthma: No Hx of COPD: Yes Hx Cardiac Disorders: Yes - DVT, PE Hx Congestive Heart Failure: No Hx Pacemaker: No Hx Hypertension: Yes Hx Thyroid Disease: Yes Hx Diabetes: No Hx Hepatitis C: No Hx MRSA: No - Vaccination History Hx Influenza Vaccination: Yes Hx Pneumococcal Vaccination: Yes - Social History Hx Tobacco Use: Yes Hx Alcohol Use: No Hx Substance Use: No Hx Physical Abuse: No Hx Emotional Abuse: No - Female History Patient : Yes <Martin Freedman - Last Filed: 11/09/19 06:54> Family Medical History - Family History Mother Living Status: Hx Family Asthma: No Hx Family Congestive Heart Failure: Yes - mom Hx Family Hypertension: Yes - dad Hx Family Stroke: No Hx Cardiac Disease: No Hx Family Diabetes: Yes - dad Hx Family Cancer: Yes - multiple family members-brain,gastric <Martin Freedman - Last Filed: 11/09/19 06:54> Physical Exam - Physical Exam General Appearance: Frail, Lethargic - But able to answer simple questions. She is unable to list what medication she is taking and only able to list a few of her medical problems., Ill Appearing Ears, Nose, Throat: hearing grossly normal, other - Mucous membranes are dry Neck: non-tender, supple Respiratory: no respiratory distress, no accessory muscle use, wheezing - Mild scattered Cardiovascular/Chest: normal peripheral pulses, no edema, bradycardia Peripheral Pulses: radial,right: 2+, radial,left: 2+ Gastrointestinal/Abdominal: soft, other - Epigastric discomfort to palpation. Rectal Exam: deferred Back Exam: no vertebral tenderness Extremity: normal range of motion, no pedal edema, normal capillary refill Neurologic: folder machine II-XII nml as tested, alert, oriented x 3 Skin Exam: pallor <Martin Freedman - Last Filed: 11/09/19 06:54> Progress - Progress Progress: 11/09/19 06:58 The patient is an 84-year-old female brought in from home secondary to generalized weakness and malaise after having 2 days of nausea vomiting and some diarrhea. The patient has what appears to be a heart block with a 2-1 AV conduction. She has an old left bundle branch block. No obvious ST segment or T wave changes when compared to previous. She has a history of electrolyte disorder in the past. Lab is being ordered. Pacer pads will be placed on the patient however at this time blood pressure is adequate so they will not be used. The patient is going to receive a breathing treatment with DuoNeb's which will likely help the heart rate. She is receiving a liter of IV fluids for the obvious dehydration. The patient will be picked up by the oncoming ER physician. The patient is in critical condition. X-rays are pending. If patient's mental status does not improve with correction of other issues, then a head CT may be warranted. martin freedman [phone] <Felipe Freedmany L - Last Filed: 11/09/19 06:54> - Progress Progress: 11/09/19 07:07 Sign out received from Dr. Freedman at shift change. Pt is a 84 yo female with PMH of COPD, diverticulitis who presents from home for cc of abdominal pain, n/v/d. Reports diarrhea for 2-3 weeks now. Abdominal pain ongoing for a few days and reports nausea and vomiting began yesterday evening to me - reports a few episodes of NBNB emesis overnight. Abd pain is located to epigastric region, radiates throughout upper abdomen, burning in nature, coming and going, moderate severity at worst, currently reports resolved, nothing tried for relief. Reports hx of diverticulitis and colitis in the past. Denies fevers, chills, chest pain, cough, dyspnea, urinary sx's, leg swelling. She may have had some falls recently at home, unsure. Uncertain if she has taken Abx recently. On arrival to ED, pt noted to be bradycardic - HR 30s-40s, BP 120/80s, SpO2 80s% on room air. Pt in NAD. Appears very weak, tired. Minimal abd ttp throu ghout. Faint bibasilar crackles. Bradycardic rate. Atropine 0.5 mg x2 given in ED with no improvement in bradycardia. Pads placed to chest wall in case of need for transcutaneous pacing. -Consider: sepsis, diverticulitis/colitis, GI bleed, ACS, heart block, COPD, CHF, PE, PNA, pancreatitis, cholecystitis, intracranial hemorrhage, pelvic frx, electrolyte derangement, blood loss anemia, other -Labs and XR imaging pending. -Receiving 1 L NS bolus, atropine 0.5 mg x2 given w/o resolution of bradycardia. -Critical patient. Anticipate need to transfer to higher LOC after ED work-up completed and pt stabilized. 11/09/19 07:40 -Labs reveal WBC 19,000 with 83% segs, lactate 1.6, H/H 12.0/36.2, PLTs 266,000. Mg 1.5, K 3.9, BUN 30, Cr 1.2, D-dimer elevated 1120, BNP 301, Trop 0.04, LFTs/amylase/lipase wnl. Concern for sepsis, ?PE, hypomagnesemia, dehydration. Begin 2nd L IVF bolus with LR. Mg Sulfate [address] head/c-spine, CTA chest, CT A/P with IV contrast. 11/09/19 08:33 -CT imaging reveals moderate rectal obstipation with mild surround inflammation. Gallbladder is distended w/o evidence of acute cholecystitis. Diverticulosis noted w/o diverticulitis. No other acute processes noted. CTA chest w/o evidence of central emboli, remainder of exam limited 2/[address] head & c-spine w/o acute processes. Chronic findings noted: chronic microvasc ischemic changes, global volume loss brain, DDD c-spine, BL neural foraminal stenosis, moderate central canal stenosis, etc... -Pt remains with bradycardia, 2:1 2nd deg AV block Mobitz Type II, HR 45, BP 140s/90s, afebrile. Stable in ED. -Discussed pt with Dr. Espinoza (cardiology) who recommends transfer to tele floor there. Spoke with Dr. Summers, hospitalist, who accepts pt for transfer. Stable to go via ground EMS. Awaiting COVID-19 rapid test result. 11/09/19 09:14 -Respiratory viral panel is negative for COVID-19 and all other tested pathogens. Dano Rutledge MD Billing #[id number] 11/09/19 06:49 Telemetry .CONTINUOUS 11/09/19 06:50 Sodium Chloride 0.9% 1000ML [Ns 1000 ml] 1,000 ml IVS ONCE UA [URINALYSIS] Stat 11/09/19 06:55 cdiff [CLOSTRIDIUM DIFFICILE AG/TOXIN] Stat 11/09/19 06:58 AMYLASE Stat B-TYPE NATRIURETIC PEPTIDE/BNP Stat CARDIAC ENZYME GROUP Stat COMPLETE METABOLIC PROFILE Stat LIPASE Stat MAGNESIUM Stat THYROID STIMULATING HORMONE Stat 11/09/19 07:00 EKG STAT 11/09/19 07:02 BLOOD CULTURE Stat 11/09/19 07:20 RESPIRATORY PANEL 2 Stat 11/09/19 07:35 Magnesium Sulfate Premix 2Gm 2 gm Premix Bag 1 bag IVPB ONCE 11/09/19 07:36 Hold Metformin x 48Hrs [id number] Abdomen/Pelvis w/Contrast [CT] Stat 11/09/19 07:38 Cervical Spine [CT] Stat Head [CT] Stat Lactated Ringers [Lr] 1,000 ml IVS ONCE 11/09/19 07:39 CTA Chest [CT] Stat Laboratory Results - last 24 hr 11/09/19 11/09/19 11/09/19 06:55 06:58 06:58 WBC 19.0 H RBC 3.97 L Hgb 12.0 Hct 36.2 MCV 91.2 MCH 30.2 MCHC 33.1 RDW 14.9 H Plt Count 266 MPV 9.4 Absolute Neuts (auto) 15.80 H Absolute Lymphs (auto) 1.10 Absolute Monos (auto) 1.90 H Absolute Eos (auto) 0.10 Absolute Basos (auto) 0.10 Neutrophils % 83.2 H Lymphocytes % 5.9 L Monocytes % 9.8 H Eosinophils % 0.5 L Basophils % 0.6 PT INR PTT (SP) D-Dimer, Quantitative Sodium 140 Potassium 3.9 Chloride 107 Carbon Dioxide 22 Anion Gap 14.9 BUN 30 H Creatinine 1.22 BUN/Creatinine Ratio 24.6 H POC Glucose 126 H Random Glucose 139 H Serum Osmolality 287.8 Lactic Acid Calcium 9.9 Magnesium 1.5 L Total Bilirubin 0.5 AST 16 ALT < 8 L Alkaline Phosphatase 42 Creatine Kinase 67 CK-MB (CK-2) 1.6 CK-MB (CK-2) % Not Reportable Troponin I 0.04 B-Natriuretic Peptide 301.0 H* Serum Total Protein 6.5 Albumin 3.6 Globulin 2.9 Albumin/Globulin Ratio 1.2 Amylase 38 Lipase 20 L 11/09/19 11/09/19 06:58 06:58 WBC RBC Hgb Hct MCV MCH MCHC RDW Plt Count MPV Absolute Neuts (auto) Absolute Lymphs (auto) Absolute Monos (auto) Absolute Eos (auto) Absolute Basos (auto) Neutrophils % Lymphocytes % Monocytes % Eosinophils % Basophils % PT 11.4 H INR 1.15 PTT (SP) 26.2 D-Dimer, Quantitative 1120.0 H* Sodium Potassium Chloride Carbon Dioxide Anion Gap BUN Creatinine BUN/Creatinine Ratio POC Glucose Random Glucose Serum Osmolality Lactic Acid 1.6 Calcium Magnesium Total Bilirubin AST ALT Alkaline Phosphatase Creatine Kinase CK-MB (CK-2) CK-MB (CK-2) % Troponin I B-Natriuretic Peptide Serum Total Protein Albumin Globulin Albumin/Globulin Ratio Amylase Lipase - EKG/XRAY/CT EKG: LBBB - with 2nd degree AV block Mobitz Type II with 2:1 conduction pattern, HR 45, no ST elevations or q waves, axis normal, QTc slightly prolonged, compared to 09/14/18 EKG 2nd degree AV block is new but LBBB remains present. XRAY: chest - no acute processes per my read CT Ordered: Yes - Additional EKG/XRAY/Consults XRAY #2: abdomen - no acute processes per my read <Dano Rutledge - Last Filed: 11/09/19 09:16> Departure <Martin Freedman Daxa - Last Filed: 11/09/19 06:54> - Departure Time of Disposition: 08:13 <Dano Rutledge - Last Filed: 11/09/19 09:16> - Departure Clinical Impression: Fecal impaction in rectum, Second degree heart block, Bradycardia, Hypomagnesemia, Proctitis AMS (altered mental status) Qualifiers: Altered mental status type: unspecified Qualified Code(s): R41.82 - Altered mental status, unspecified Sepsis Qualifiers: Sepsis type: sepsis due to unspecified organism Sepsis acute organ dysfunction status: with acute organ dysfunction Severe sepsis acute organ dysfunction type: encephalopathy Severe sepsis shock status: without septic shock Qualified Code(s): A41.9 - Sepsis, unspecified organism Disposition: Transfer to Hospital Condition: Poor Departure Forms: ED Discharge - Pt. Copy, Patient Portal Self Enrollment Instructions: DI for Abdominal Pain-Adult Referrals: Reji Schmitt III, MD [Primary Care Provider] - 1-2 Weeks Home Medications: Ambulatory Orders HYDROcodone 10MG/APAP 325MG [[place] 10/325] 1 tablet PO TID PRN 03/01/13 predniSONE [PredniSONE] 5 mg PO DAILY 03/01/13 Levothyroxine Sodium [Levoxyl] 112 mcg PO DAILY 09/14/14 Cyanocobalamin Inj [Vitamin B-12 Inj] 1,000 mcg IM MONTHLY 02/18/15 Atenolol [Tenormin] 25 mg PO DAILY 06/23/16 Fluoxetine HCl [Prozac] 60 mg PO DAILY 06/23/16 Levetiracetam [Keppra] 1,000 mg PO BEDTIME 06/23/16 Omeprazole [Prilosec Cap] 40 mg PO BEDTIME 06/23/16 fentaNYL PATCH 50 MCG/HR [Duragesic Patch 50 MCG/HR] 1 ea TD Q72H #1 patch 06/28/16 Tiotropium [place] Monohydrate [Spiriva Respimat] 2 puff INH RTDAILY 02/06/17 hydrOXYzine HCl [Atarax] 25 mg PO 1200 05/08/17 Cetirizine HCl [Cetirizine Hydrochloride] 10 mg PO DAILY PRN 05/11/17 Sucralfate Tab [Carafate Tab] 1 gm PO PC #60 tablet 05/11/17 Lisinopril 5 mg PO DAILY 09/14/18 Mirabegron [Myrbetriq] 25 mg PO DAILY 09/14/18 Primidone 50 mg PO DAILY 09/14/18 Critical Care Note - Critical Care Note Total Time (mins): 60 Comments: Critical Care Time: Upon my evaluation, this patient had a high probability of life-threatening deterioration due to bradycardia, 2nd degree heart block, which required my direct attention, intervention, and management. I have provided 60 minutes of critical care time exclusive of separately billable procedures. My time included: direct patient care, review of labs and radiology, obtaining history from and counseling the patient and the family, discussion with consultants and/or other medical personnel, documentation, and monitoring for potential decompensation. <Dano Rutledge - Last Filed: 11/09/19 09:16> Transfer to Outside Facility - Transfer Information Decision to Transfer Date: 11/09/19 Decision to Transfer Time: 08:50 Reason for Transfer: required specialist not available - cardiology Accepting Provider:: Dr. Summers Accepting Facility: [facility] <Dano Rutledge - Last Filed: 11/09/19 09:16>
[2019-11-09] MEDS: IPRATROPIUM/ALBUTEROL 3 ML VIAL NEB ONE (07:00)
[2019-11-09] MEDS: ATROPINE SULFATE 0.5 MG/5 ML SYRINGE IV ONE ×2 (07:02→07:13)
[2019-11-09] MEDS: SODIUM CHLORIDE 0.9% 1000ML 1,000 ML IVS ONE (07:13)
[2019-11-09] MEDS: methylPREDNISolone SODIUM SUC 125 MG/2 ML VIAL IV ONE (07:15)
--- NOTE | 2019-11-09 07:28 | RAD ---
EXAM DESCRIPTION: Abdomen Series CLINICAL HISTORY: 84 years Female, nv 2 days COMPARISON: May 10, 2017 FINDINGS: Supine view of the abdomen demonstrates a normal bowel gas pattern with mild levoscoliosis and degenerative changes lumbar spine. The lung bases appear clear. Upright view of the chest demonstrates modest cardiomegaly and tortuosity. No free abdominal air or significant air-fluid level in the upper abdomen noted. Borderline vascular congestion present. IMPRESSION: Nonspecific supine view of the abdomen with mild cardiomegaly and borderline vascular prominence in the chest. No free abdominal air or obstruction. Electronically signed by: Tony Santoyo MD 11/09/2019 7:27 AM CDT
[2019-11-09] MEDS ORDERED: LACTATED RINGERS 1,000 ML ONE (07:39)
[2019-11-09] MEDS: LACTATED RINGERS 1,000 ML IVS ONE (07:45)
--- NOTE | 2019-11-09 08:25 | CT ---
Study: CT abdomen and pelvis. Indication: n/v, epigastric pain, bloody diarrhea Technique: Venous phase CT imaging of the abdomen and pelvis obtained after intravenous administration of contrast. This exam was performed according to our departmental dose-optimization program, which includes automated exposure control, adjustment of the mA and/or kV according to patient size and/or use of iterative reconstruction technique. Comparison: CT abdomen and pelvis May 08, 2017 Findings: Examination is limited due to motion degradation. In addition, streak artifact from patient's upper arms degrades the exam. Patchy bibasilar atelectasis versus mild consolidation. Cardiomegaly. Coronary artery and abdominal aortic atherosclerosis. Gallbladder moderately distended. Mild intrahepatic biliary ductal dilatation suspected. Several scattered tiny subcentimeter low-density lesions throughout the liver, too small to characterize. 8 mm low-density splenic lesion inferolaterally, indeterminate. Pancreas and adrenal glands unremarkable. Moderate left and mild right renal atrophy. Mild nonspecific bilateral perinephric stranding. Bladder unremarkable. Pessary device noted. Moderate volume of stool within the rectum with mild perirectal inflammation and presacral edema. Colonic diverticulosis. Scattered contrast-filled colon. Stomach and small bowel unremarkable. Appendix not visualized. No free fluid. No free air. No pathologically enlarged lymphadenopathy. Degenerative changes of the spine noted. Patchy sclerosis throughout the bilateral sacral ala suggesting insufficiency fractures. Impression: Motion degraded examination. Moderate volume of stool in the rectum mild perirectal inflammation as well as presacral edema, nonspecific. Mild intrahepatic biliary ductal dilatation suspected. Correlation with liver function tests recommended. Distended gallbladder. Right upper quadrant sonogram could better evaluate. Patchy bibasilar atelectasis versus mild consolidation. Tiny low-density liver and spleen lesions, statistically these likely reflect benign cysts or hemangiomas but are ultimately indeterminate. Short-term follow-up versus MRI may prove useful. Patchy sclerosis throughout the bilateral sacral ala suggesting insufficiency fractures. Further characterization with MRI of the pelvis recommended. Additional findings as above. Electronically signed by: Cristofer Shea MD 11/09/2019 8:23 AM CDT
--- NOTE | 2019-11-09 08:26 | CT ---
Study: CT cervical spine. Indication: falls, confusion Technique: Axial CT images were acquired through the cervical spine without intravenous contrast. Coronal and sagittal reformats performed. This exam was performed according to our departmental dose-optimization program, which includes automated exposure control, adjustment of the mA and/or kV according to patient size and/or use of iterative reconstruction technique. Comparison: None Findings: No acute fracture identified. Vertebral body height maintained. Multilevel cervical disc disease noted and most pronounced at the C5-C6 disc space level, where there is severe disc space height loss, disc osteophyte complex, severe bilateral foraminal narrowing, and moderate spinal canal narrowing. Scattered atherosclerosis. Impression: No acute cervical fracture. Additional findings as above. Electronically signed by: Cristofer Shea MD 11/09/2019 8:25 AM CDT
[2019-11-09] MEDS: cefTRIAXone SODIUM 2 GM in SODIUM CHL 0.9% 100ML MINI-BAG 100 ML IVPB ONE (08:27)
[2019-11-09] MEDS: MAGNESIUM SULFATE PREMIX 2GM 2 GM in PREMIX BAG 1 BAG IVPB ONE (08:28)
--- NOTE | 2019-11-09 08:28 | CT ---
Study: CT of the Head. Indication: falls, confusion Technique: Axial CT images of the head were acquired without intravenous contrast. This exam was performed according to our departmental dose-optimization program, which includes automated exposure control, adjustment of the mA and/or kV according to patient size and/or use of iterative reconstruction technique. Comparison: None. Findings: No acute ischemia, acute hemorrhage, mass, mass effect, midline shift, or extra-axial fluid collection identified by CT. Ventricles are normal in configuration without hydrocephalus. Patchy hypoattenuation of the periventricular and subcortical white matter noted. This is nonspecific but most consistent with chronic microvascular ischemic change. Global parenchymal volume loss and intracranial atherosclerosis noted as well. Paranasal sinuses are adequately aerated. Mastoid air cells are adequately aerated. Osseous structures and soft tissues are unremarkable. Impression: No acute intracranial abnormality by CT. Senescent changes. Electronically signed by: Cristofer Shea MD 11/09/2019 8:26 AM CDT
--- NOTE | 2019-11-09 08:30 | CT ---
Study: CT angiography of the chest, pulmonary embolus protocol. Indication: bradycardia, hypoxia, elevated d-dimer Technique: Axial CT images were acquired through the chest after intravenous administration of contrast utilizing the CT angiography, pulmonary embolus protocol. Computer-generated 3D reconstructions (MIPS) were performed and reviewed. This exam was performed according to our departmental dose-optimization program, which includes automated exposure control, adjustment of the mA and/or kV according to patient size and/or use of iterative reconstruction technique. Comparison: None Findings: Pronounced atherosclerosis. Cardiomegaly. No pathologically enlarged lymphadenopathy. No central pulmonary embolus identified, however evaluation is significantly limited due to respiratory motion degradation. Degenerative changes of the spine noted. Emphysema noted. Patchy mild bilateral basilar atelectasis versus less likely consolidation. No pleural effusion or pneumothorax. Impression: No central pulmonary embolus. Evaluation limited due to respiratory motion artifact. Cardiomegaly. Pronounced atherosclerosis. Emphysema with bibasilar atelectasis versus less likely consolidation. Electronically signed by: Cristofer Shea MD 11/09/2019 8:29 AM CDT
[2019-11-09] MEDS: metroNIDAZOLE IV PREMIX 500MG 500 MG in PREMIX BAG 1 BAG IVPB ONE (09:30)
[2019-11-09 10:17] VITALS: BP 128/56; TEMP 97; O2SAT 94
== END 2019-11-09 09:45 | disposition short-term general hospital (02) ==
LOC: ER 06:30
DX: R65.20 Severe sepsis without septic shock (principal); G93.40 Encephalopathy, unspecified; K56.41 Fecal impaction; I44.1 Atrioventricular block, second degree; E83.42 Hypomagnesemia; K62.89 Other specified diseases of anus and rectum; R41.82 Altered mental status, unspecified; I44.7 Left bundle-branch block, unspecified; K57.30 Diverticulosis of large intestine without perforation or abscess without bleeding; R11.2 Nausea with vomiting, unspecified; R19.7 Diarrhea, unspecified; J44.9 Chronic obstructive pulmonary disease, unspecified; E07.9 Disorder of thyroid, unspecified; I10 Essential (primary) hypertension; R56.9 Unspecified convulsions; Z20.828 Contact with and (suspected) exposure to other viral communicable diseases; Z79.899 Other long term (current) drug therapy; Z87.891 Personal history of nicotine dependence; Z86.718 Personal history of other venous thrombosis and embolism; Z86.711 Personal history of pulmonary embolism; Z88.2 Allergy status to sulfonamides; Z88.0 Allergy status to penicillin; Z88.1 Allergy status to other antibiotic agents; Z88.8 Allergy status to other drugs, medicaments and biological substances
CPT/HCPCS: 36415; 36416; 70450; 71275; 72125; 74019; 74177; 80053; 82150; 82550; 82553; 82948; 83605; 83690; 83735; 83880; 84443; 84484; 85025; 85379; 85610; 85730; 87040; 87635; 93005; J0696; J2930; J3475; J3490; J7030; J7050; J7120

== ENCOUNTER → 2019-12-22 | Outpatient (CLI) | payer MEDICARE, OTHER | LOC: BFHH 11:15 | PROVIDERS: ATTEND Family Medicine | DX: R30.0 Dysuria (principal) ==

== ENCOUNTER → 2019-12-28 | Outpatient (CLI) | payer MEDICARE, OTHER | LOC: BFHH 17:16 | PROVIDERS: ATTEND Family Medicine | DX: E07.9 Disorder of thyroid, unspecified (principal) ==

== ENCOUNTER 2020-01-09 05:58 | Inpatient (IN) | payer MEDICARE, OTHER ==
[2020-01-09] MEDS ORDERED: MEROPENEM 1 GM in SODIUM CHL 0.9% 50ML MIN-BAG+ 50 ML IVPB ONE (06:11)
--- NOTE | 2020-01-09 06:14 | ED.PDOC ---
History of Present Illness <Evan Wood - Last Filed: 01/09/20 10:46> - General Source: patient, RN notes reviewed, Vital Signs reviewed, EMS notes reviewed, EMS, old records Exam Limitations: other - Altered mental status - History of Present Illness Initial Comments: This is an 84-year-old female with history of chronic pain, A. fib, seizure disorder, presenting to the emergency department via EMS for somnolence. Per EMS, patient usually awakes daily around the same time. When the family came to wake her up this morning, they were unable to arouse her. Family denied possibility of overdose on medications. They deny any recent illnesses. They did note that there was emesis on the bed and family thought she may have had a seizure. Patient was unable to arouse enough to give history. She does follow some simple commands. O2 sats on EMS arrival were in the mid 80s, improved on 2 L by nasal cannula.EMS states that she responded only to sternal rub on their arrival, but in route she became more responsive and somewhat more alert. Fingerstick glucose was 104. <Robin Martines - Last Filed: 02/05/20 07:17> - General Chief Complaint: Neuro Symptoms/Deficits Stated Complaint: Altered mental status Time Seen by Provider: 01/09/20 06:07 - History of Present Illness Allergies/Adverse Reactions: Allergies Rosuvastatin [From Crestor] Allergy (Severe, Verified 11/12/19 10:00) Other CI Pigment Blue 63 [From Cymbalta] Allergy (Intermediate, Verified 11/12/19 10:00) Vomitting Duloxetine [From Cymbalta] Allergy (Intermediate, Verified 11/12/19 10:00) Vomitting Sulfa Antibiotics Allergy (Intermediate, Verified 11/12/19 10:00) Hives Penicillin G Allergy (Mild, Verified 11/12/19 10:00) Rash Ciprofloxacin Allergy (Verified 11/12/19 10:00) Varenicline [From Chantix] Adverse Reaction (Intermediate, Verified 11/12/19 10:00) Vomitting Home Medications: Ambulatory Orders HYDROcodone 10MG/APAP 325MG [Jackson 10/325] 1 tablet PO TID PRN 03/01/13 predniSONE [PredniSONE] 5 mg PO DAILY 03/01/13 Levothyroxine Sodium [Levoxyl] 125 mcg PO QAM 09/14/14 Cyanocobalamin Inj [Vitamin B-12 Inj] 1,000 mcg IM MONTHLY 02/18/15 Fluoxetine HCl [Prozac] 30 mg PO DAILY 06/23/16 Levetiracetam [Keppra] 250 mg PO BID 06/23/16 hydrOXYzine HCl [Atarax] 25 mg PO BEDTIME 05/08/17 Lisinopril 5 mg PO DAILY 09/14/18 Aspirin [Aspirin 81 Low Dose] 81 mg PO DAILY 01/09/20 Atorvastatin Calcium 40 mg PO QPM 01/09/20 Clopidogrel Bisulfate [Plavix] 75 mg PO BEDTIME 01/09/20 Hydroxychloroquine Sulfate [Hydroxychloroquine Sulfat] 200 mg PO BID 01/09/20 Potassium Chloride [K-Tab] 8 meq PO DAILY 01/09/20 Sucralfate Tab [Carafate Tab] 1 gm PO QID 01/09/20 Umeclidinium-Vilanterol [Anoro Ellipta 62.5-25 Mcg/INH] 1 aer IN DAILY 01/09/20 Women's Daily Care 1 capsule PO DAILY 01/09/20 Albuterol Inhaler [Ventolin Hfa Inhaler] 2 puff INH PRN PRN inh 01/16/20 Albuterol Inhaler [Ventolin Hfa Inhaler] 2 puff INH RTQID inh 01/16/20 Apixaban [Eliquis] 2.5 mg PO BID #60 01/16/20 Bifidobacterium Infantis [Align] 4 mg PO BID cap 01/16/20 Cefdinir 300 mg PO BID #7 capsule 01/16/20 Dexamethasone Tab [Decadron Tab] 4 mg PO DAILY #3 tab 01/16/20 fentaNYL PATCH 25 MCG/HR [Duragesic Patch 25 MCG/HR] 1 ea TD Q72H patch 01/16/20 guaiFENesin ER TAB [Mucinex Tab] 600 mg PO BID tab 01/16/20 Diclofenac Sodium (Topical) [Pennsaid] 2 % TD BID PRN #1 tube 02/04/20 Review of Systems - Review of Systems Unable to Obtain Due To: clinical condition <Robin Martines - Last Filed: 02/05/20 07:17> Past Medical History (General) - Patient Medical History Hx Seizures: No Hx Stroke: No Hx Dementia: No Hx Asthma: No Hx of COPD: No Hx Cardiac Disorders: No Hx Congestive Heart Failure: No Hx Pacemaker: Yes - 11/10 Hx Hypertension: Yes Hx Thyroid Disease: No Hx Diabetes: No Hx Renal Disease: No Hx Cancer: No Hx of HIV: No Hx Hepatitis C: No Hx MRSA: No - Vaccination History Hx Tetanus, Diphtheria Vaccination: Yes Hx Influenza Vaccination: Yes Hx Pneumococcal Vaccination: Yes - Social History Hx Tobacco Use: Yes Hx Chewing Tobacco Use: No Hx Alcohol Use: No Hx Substance Use: No Hx Substance Use Treatment: No Hx Depression: No Hx Physical Abuse: No Hx Emotional Abuse: No Hx Suspected Abuse: No - Female History Patient : Yes <Robin Martines - Last Filed: 02/05/20 07:17> Family Medical History - Family History Mother Living Status: Hx Family Asthma: No Hx Family Congestive Heart Failure: Yes - mom Hx Family Hypertension: Yes - dad Hx Family Stroke: No Hx Cardiac Disease: No Hx Family Diabetes: Yes - dad Hx Family Cancer: Yes - multiple family members-brain,gastric <Robin Martines - Last Filed: 02/05/20 07:17> Physical Exam - Physical Exam General Appearance: Ill Appearing, Other - Answers simple questions, follows simple commands speech is slurred Eye Exam: bilateral normal ENT Exam: hearing grossly normal, TMs normal Neck: full range of motion, supple, normal inspection Respiratory: chest non-tender, lungs clear, no accessory muscle use, crackles - Bilateral bases Cardiovascular/Chest: regular rate, rhythm, no edema, no gallop, no JVD Peripheral Pulses: radial,right: 2+, radial,left: 2+ Gastrointestinal/Abdominal: non tender, soft Back Exam: no CVA tenderness, no vertebral tenderness Extremities Exam: non-tender, normal range of motion Mental Status: other - Patient opens eyes to voice and is oriented to person only. 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, abnormal speech - slurred, no facial droop Motor/Sensory: weak motor strength RUE - 4/5, weak motor strength LUE - 4/5, weak motor strength RLE - 4/5, weak motor strength LLE - 4/5, other - sensory exam difficult to obtain due to altered mental status, there were no unilateral/focal deficits appreciated Skin Exam: normal color, warm/dry <Robin Martines - Last Filed: 02/05/20 07:17> Progress - Progress Progress: 01/09/20 10:48 The patient is a 84-year-old female presented emergency room secondary to lethargy this morning, found to be hypoxic, and pulmonary edema, coronavirus positive, and likely with an aspiration pneumonitis. She does have a small elevation of the troponin likely due to the hypoxia and pulmonary edema. No evidence of any chest pain. EKG is of minimal use in this case. CTA of the chest shows what is material in the left bronchi, which I believe is most likely aspirated material. The patient has been placed on broad-spectrum antibiotics of meropenem, clindamycin, Rocephin and azithromycin. This should cover for any aspiration component. The pulmonary edema corrected with correction of hypoxia. She is simply requiring 2 L nasal cannula at this point to maintain adequate oxygen saturations and lung mireles are clear than earlier in the morning. Additionally the hypoxia and pulmonary edema may have been contributed to by polypharmacy. Her fentanyl patch has been removed and she has much more alert at this point. We did not give any Narcan for fear of triggering a seizure. It is entirely the possible that the patient may have had a seizure this morning triggering the vomiting episode and hypoxia. The altered mental state may represent something of a postictal state. It is difficult to tell. She was redosed with Keppra. Additionally the patient has been dosed with aspirin and Plavix. The patient did have a subarachnoid hemorrhage in 2014. Further anticoagulation should be done judiciously. No evidence of any acute pathology on the head CT. Again mental status is progressing back towards baseline. No focal neurological changes are noted otherwise. For the coronavirus, the patient is being placed on oxygen and she is receiving doses of remdesivir and dexamethasone. Family is bringing up her advanced directive. This will need to be gone over once it is brought up. Admit for continued care. Obviously the patient is very high risk for deterioration. evan wood [id number] 01/09/20 10:55 critical care time for above issues is 40 minutes. - Results/Orders Results/Orders: Chest x-ray shows what is most consistent with pulmonary edema. CTA of the chest done about 3 hours after the initial x-ray showed no residual pulmonary edema but there is some mild left midlung infiltrate and material in the left bronchi. I believe this is most likely aspirated. CT of the head shows no acute intracranial pathology. See report for details. EKG is a dual-chamber pacer. Rate is 86 bpm. Difficult to interpret otherwise. Laboratory Tests 01/09/20 01/09/20 01/09/20 06:08 06:08 06:08 WBC 6.2 RBC 3.98 L Hgb 12.0 Hct 36.6 MCV 92.0 MCH 30.3 MCHC 32.9 L RDW 15.4 H Plt Count 159 MPV 9.6 Absolute Neuts (auto) 4.70 Absolute Lymphs (auto) 1.00 Absolute Monos (auto) 0.40 Absolute Eos (auto) 0.00 Absolute Basos (auto) 0.00 Neutrophils % 75.6 Lymphocytes % 16.9 L Monocytes % 7.0 Eosinophils % 0.2 L Basophils % 0.3 PT 10.4 INR 1.05 PTT (SP) 28.3 Fibrinogen D-Dimer, Quantitative Sodium 139 Potassium 4.1 Chloride 108 Carbon Dioxide 20 L Anion Gap 15.1 BUN 24 H Creatinine 0.98 BUN/Creatinine Ratio 24.5 H POC Glucose Random Glucose 95 Serum Osmolality 281.4 Lactic Acid Calcium 9.3 Total Bilirubin 0.6 AST 19 ALT 10 Alkaline Phosphatase 40 L Ammonia Creatine Kinase 30 CK-MB (CK-2) 1.7 CK-MB (CK-2) % Not Reportable Troponin I 0.06 H C-Reactive Protein B-Natriuretic Peptide Serum Total Protein 6.0 L Albumin 3.4 Globulin 2.6 Albumin/Globulin Ratio 1.3 Procalcitonin TSH Urine Color Urine Appearance Urine pH Ur Specific Scott Urine Protein Urine Glucose (UA) Urine Ketones Urine Blood Urine Nitrite Urine Bilirubin Urine Urobilinogen Ur Leukocyte Esterase Urine RBC Urine WBC Ur Epithelial Cells Urine Bacteria Salicylates Urine Opiates Screen Acetaminophen Urine Barbiturates Ur Phencyclidine Scrn U Amphetamin/Meth Scrn U Benzodiazepines Scrn U Cocaine Metab Screen U Cannabinoids Screen Ethyl Alcohol 01/09/20 01/09/20 01/09/20 06:10 06:21 06:21 WBC RBC Hgb Hct MCV MCH MCHC RDW Plt Count MPV Absolute Neuts (auto) Absolute Lymphs (auto) Absolute Monos (auto) Absolute Eos (auto) Absolute Basos (auto) Neutrophils % Lymphocytes % Monocytes % Eosinophils % Basophils % PT INR PTT (SP) Fibrinogen D-Dimer, Quantitative Sodium Potassium Chloride Carbon Dioxide Anion Gap BUN Creatinine BUN/Creatinine Ratio POC Glucose 85 Random Glucose Serum Osmolality Lactic Acid Calcium Total Bilirubin AST ALT Alkaline Phosphatase Ammonia Creatine Kinase CK-MB (CK-2) CK-MB (CK-2) % Troponin I C-Reactive Protein B-Natriuretic Peptide Serum Total Protein Albumin Globulin Albumin/Globulin Ratio Procalcitonin TSH Urine Color Urine Appearance Urine pH Ur Specific Scott Urine Protein Urine Glucose (UA) Urine Ketones Urine Blood Urine Nitrite Urine Bilirubin Urine Urobilinogen Ur Leukocyte Esterase Urine RBC Urine WBC Ur Epithelial Cells Urine Bacteria Salicylates Urine Opiates Screen Positive H Acetaminophen Urine Barbiturates Negative Ur Phencyclidine Scrn Negative U Amphetamin/Meth Scrn Negative U Benzodiazepines Scrn Negative U Cocaine Metab Screen Negative U Cannabinoids Screen Negative Ethyl Alcohol < 5.10 01/09/20 01/09/20 01/09/20 06:21 06:21 06:21 WBC RBC Hgb Hct MCV MCH MCHC RDW Plt Count MPV Absolute Neuts (auto) Absolute Lymphs (auto) Absolute Monos (auto) Absolute Eos (auto) Absolute Basos (auto) Neutrophils % Lymphocytes % Monocytes % Eosinophils % Basophils % PT INR PTT (SP) Fibrinogen D-Dimer, Quantitative 665.0 H* Sodium Potassium Chloride Carbon Dioxide Anion Gap BUN Creatinine BUN/Creatinine Ratio POC Glucose Random Glucose Serum Osmolality Lactic Acid 0.9 Calcium Total Bilirubin AST ALT Alkaline Phosphatase Ammonia Creatine Kinase CK-MB (CK-2) CK-MB (CK-2) % Troponin I C-Reactive Protein B-Natriuretic Peptide Serum Total Protein Albumin Globulin Albumin/Globulin Ratio Procalcitonin TSH 0.34 Urine Color Urine Appearance Urine pH Ur Specific Scott Urine Protein Urine Glucose (UA) Urine Ketones Urine Blood Urine Nitrite Urine Bilirubin Urine Urobilinogen Ur Leukocyte Esterase Urine RBC Urine WBC Ur Epithelial Cells Urine Bacteria Salicylates < 4.0 Urine Opiates Screen Acetaminophen < 10.0 L Urine Barbiturates Ur Phencyclidine Scrn U Amphetamin/Meth Scrn U Benzodiazepines Scrn U Cocaine Metab Screen U Cannabinoids Screen Ethyl Alcohol 01/09/20 01/09/20 01/09/20 06:21 06:31 08:09 WBC RBC Hgb Hct MCV MCH MCHC RDW Plt Count MPV Absolute Neuts (auto) Absolute Lymphs (auto) Absolute Monos (auto) Absolute Eos (auto) Absolute Basos (auto) Neutrophils % Lymphocytes % Monocytes % Eosinophils % Basophils % PT INR PTT (SP) Fibrinogen D-Dimer, Quantitative Sodium Potassium Chloride Carbon Dioxide Anion Gap BUN Creatinine BUN/Creatinine Ratio POC Glucose Random Glucose Serum Osmolality Lactic Acid Calcium Total Bilirubin AST ALT Alkaline Phosphatase Ammonia Creatine Kinase CK-MB (CK-2) CK-MB (CK-2) % Troponin I C-Reactive Protein 3.6 H B-Natriuretic Peptide Serum Total Protein Albumin Globulin Albumin/Globulin Ratio Procalcitonin Cancelled TSH Urine Color Yellow Urine Appearance Clear Urine pH 5.0 Ur Specific Scott >= 1.030 Urine Protein Negative Urine Glucose (UA) Negative Urine Ketones Trace Urine Blood Negative Urine Nitrite Negative Urine Bilirubin Small H Urine Urobilinogen 0.2 Ur Leukocyte Esterase Negative Urine RBC 0 Urine WBC 0 Ur Epithelial Cells 0 Urine Bacteria 0 Salicylates Urine Opiates Screen Acetaminophen Urine Barbiturates Ur Phencyclidine Scrn U Amphetamin/Meth Scrn U Benzodiazepines Scrn U Cocaine Metab Screen U Cannabinoids Screen Ethyl Alcohol 01/09/20 01/09/20 01/09/20 09:34 09:34 09:34 WBC RBC Hgb Hct MCV MCH MCHC RDW Plt Count MPV Absolute Neuts (auto) Absolute Lymphs (auto) Absolute Monos (auto) Absolute Eos (auto) Absolute Basos (auto) Neutrophils % Lymphocytes % Monocytes % Eosinophils % Basophils % PT INR PTT (SP) Fibrinogen 395 H D-Dimer, Quantitative Sodium Potassium Chloride Carbon Dioxide Anion Gap BUN Creatinine BUN/Creatinine Ratio POC Glucose Random Glucose Serum Osmolality Lactic Acid Calcium Total Bilirubin AST ALT Alkaline Phosphatase Ammonia 11 Creatine Kinase 23 L CK-MB (CK-2) 1.4 CK-MB (CK-2) % Not Reportable Troponin I 0.09 H* C-Reactive Protein 4.5 H D B-Natriuretic Peptide 50.8 Serum Total Protein Albumin Globulin Albumin/Globulin Ratio Procalcitonin TSH Urine Color Urine Appearance Urine pH Ur Specific Scott Urine Protein Urine Glucose (UA) Urine Ketones Urine Blood Urine Nitrite Urine Bilirubin Urine Urobilinogen Ur Leukocyte Esterase Urine RBC Urine WBC Ur Epithelial Cells Urine Bacteria Salicylates Urine Opiates Screen Acetaminophen Urine Barbiturates Ur Phencyclidine Scrn U Amphetamin/Meth Scrn U Benzodiazepines Scrn U Cocaine Metab Screen U Cannabinoids Screen Ethyl Alcohol <Evan Wood L - Last Filed: 01/09/20 10:46> - Progress Progress: 01/09/20 06:18 Patient did have a fentanyl patch on her back on arrival, this was removed due to somnolence. Exam concerning for possible polypharmacy. Awaiting UDS, ASA/APAP levels. 01/09/20 06:56 Patient presenting with altered mental status/somnolence of uncertain etiology. Patient was hypoxic in the mid 80s on arrival. Mental status improved. Blood glucose was 104. She has generalized decreased strength but no focal or unilateral weakness. No known trauma. She is on hydrocodone as well as fentanyl patches. Possible polypharmacy, although ICH remains a possibility, as well as infectious processes such as COVID-19. Work-up is in progress at this time. Care will be transferred to Dr. Wood. <Robin Martines - Last Filed: 02/05/20 07:17> Departure <Evan Wood - Last Filed: 01/09/20 10:46> <Robin Martines - Last Filed: 02/05/20 07:17> - Departure Clinical Impression: Acute encephalopathy, Acute pulmonary edema, COVID-19 Aspiration into airway Qualifiers: Encounter type: initial encounter Qualified Code(s): T17.908A - Unspecified foreign body in respiratory tract, part unspecified causing other injury, initial encounter Epilepsy Qualifiers: Epilepsy type: unspecified Intractability: intractable Status epilepticus: without status epilepticus Qualified Code(s): G40.919 - Epilepsy, unspecified, intractable, without status epilepticus Disposition: Admit Patient Condition: Poor Home Medications: Ambulatory Orders HYDROcodone 10MG/APAP 325MG [Jackson 10/325] 1 tablet PO TID PRN 03/01/13 predniSONE [PredniSONE] 5 mg PO DAILY 03/01/13 Levothyroxine Sodium [Levoxyl] 125 mcg PO QAM 09/14/14 Cyanocobalamin Inj [Vitamin B-12 Inj] 1,000 mcg IM MONTHLY 02/18/15 Fluoxetine HCl [Prozac] 30 mg PO DAILY 06/23/16 Levetiracetam [Keppra] 250 mg PO BID 06/23/16 hydrOXYzine HCl [Atarax] 25 mg PO BEDTIME 05/08/17 Lisinopril 5 mg PO DAILY 09/14/18 Aspirin [Aspirin 81 Low Dose] 81 mg PO DAILY 01/09/20 Atorvastatin Calcium 40 mg PO QPM 01/09/20 Clopidogrel Bisulfate [Plavix] 75 mg PO BEDTIME 01/09/20 Hydroxychloroquine Sulfate [Hydroxychloroquine Sulfat] 200 mg PO BID 01/09/20 Potassium Chloride [K-Tab] 8 meq PO DAILY 01/09/20 Sucralfate Tab [Carafate Tab] 1 gm PO QID 01/09/20 Umeclidinium-Vilanterol [Anoro Ellipta 62.5-25 Mcg/INH] 1 aer IN DAILY 01/09/20 Women's Daily Care 1 capsule PO DAILY 01/09/20 Albuterol Inhaler [Ventolin Hfa Inhaler] 2 puff INH PRN PRN inh 01/16/20 Albuterol Inhaler [Ventolin Hfa Inhaler] 2 puff INH RTQID inh 01/16/20 Apixaban [Eliquis] 2.5 mg PO BID #60 01/16/20 Bifidobacterium Infantis [Align] 4 mg PO BID cap 01/16/20 Cefdinir 300 mg PO BID #7 capsule 01/16/20 Dexamethasone Tab [Decadron Tab] 4 mg PO DAILY #3 tab 01/16/20 fentaNYL PATCH 25 MCG/HR [Duragesic Patch 25 MCG/HR] 1 ea TD Q72H patch 01/16/20 guaiFENesin ER TAB [Mucinex Tab] 600 mg PO BID tab 01/16/20 Diclofenac Sodium (Topical) [Pennsaid] 2 % TD BID PRN #1 tube 02/04/20 Decision To Admit - Decistion To Admit Decision to Admit Reason: Medical Nature Decision to Admit Date: 01/09/20 Decision to Admit Time: 10:55 <Evan Wood - Last Filed: 01/09/20 10:46>
[2020-01-09] MEDS: SODIUM CHLORIDE 0.9% (FLUSH) 10 ML SYG IV PRN (06:53)
--- NOTE | 2020-01-09 07:00 | RAD ---
EXAM: XR Chest, 1 View CLINICAL HISTORY: The patient is 84 years old and is Female; altered mental status, vomiting TECHNIQUE: Frontal view of the chest. COMPARISON: Chest x-ray 11/12/2019 FINDINGS: Lungs: Unchanged vascular congestion and coarse interstitial lung markings probably representing pulmonary edema. Pleural space: Unremarkable. No pneumothorax. Heart: Enlarged cardiac silhouette. Mediastinum: Unremarkable. Bones/joints: Unremarkable. Tubes, lines and devices: Partially calcified aorta. Left pacemaker/AICD. IMPRESSION: Unchanged vascular congestion and coarse interstitial lung markings probably representing pulmonary edema. Electronically signed by: Adam Davis MD 01/09/2020 6:59 AM CDT
--- NOTE | 2020-01-09 07:05 | CT ---
EXAM: CT Head Without Intravenous Contrast CLINICAL HISTORY: The patient is 84 years old and is Female; somnolent, vomiting, on Plavix, h/o seizure TECHNIQUE: Axial computed tomography images of the head/brain without intravenous contrast. Sagittal and coronal reformatted images were created and reviewed. This CT exam was performed using one or more of the following dose reduction techniques: automated exposure control, adjustment of the mA and/or kV according to patient size, and/or use of iterative reconstruction technique. COMPARISON: CT brain from 11/09/2019 FINDINGS: BRAIN: Diffuse cerebral atrophy is noted. There are periventricular white matter changes, which are likely related to chronic small vessel disease. No obvious signs of acute infarct. No intracranial hemorrhage. VENTRICLES: No hydrocephalus. BONES/JOINTS: Unremarkable. No acute fracture. SOFT TISSUES: Unremarkable. SINUSES: Unremarkable as visualized. No acute sinusitis. MASTOID AIR CELLS: Unremarkable as visualized. No mastoid effusion. IMPRESSION: No acute intracranial findings visualized. Electronically signed by: Miriam Trinh MD 01/09/2020 7:03 AM CDT
[2020-01-09] MEDS ORDERED: CLINDAMYCIN INJ (VIAL) 600 MG in SODIUM CHLORIDE 0.9% 50ML 50 ML IVPB ONE (07:41)
[2020-01-09] MEDS ORDERED: ACETYLCYSTEIN 20 % 6,000 MG/30 ML VIAL PO ONE (08:27)
[2020-01-09] MEDS ORDERED: DEXAMETHASONE INJ 10 MG/ML VIAL IV ONE (08:28)
[2020-01-09] MEDS ORDERED: AZITHROMYCIN IV 500 MG in SODIUM CHLORIDE 0.9% 250ML 250 ML IVPB ONE (08:30)
[2020-01-09] MEDS ORDERED: cefTRIAXone SODIUM 1 GM in SODIUM CHL 0.9% 50ML MIN-BAG+ 50 ML IVPB ONE (08:30)
[2020-01-09] MEDS ORDERED: REMDESIVIR 200 MG in SODIUM CHLORIDE 0.9% 250ML 250 ML IVPB SCH (09:00)
--- NOTE | 2020-01-09 10:15 | CT ---
EXAM DESCRIPTION: CTA Chest [facility]: CT CHEST ANGIOGRAPHY WITH IV CONTRAST CLINICAL HISTORY: hypoxia, pulm edema, elev ddimer; MAIN TECHNIQUE: CT angiogram of the chest using intravenous contrast. MIP reconstructions were performed. All CT scans at this facility use dose modulation, iterative reconstruction, and/or weight based dosing when appropriate to reduce radiation dose to as low as reasonably achievable. COMPARISON: Chest x-ray done January [address] scan done November 09, 2019 FINDINGS: Pulmonary arteries: The pulmonary arteries appear widely patent. There is no evidence for pulmonary embolism. Mediastinum:The heart and great vessels appear unremarkable. There is no evidence for pericardial effusion. There is no pathologically enlarged adenopathy. LUNGS: There are diffuse stable emphysematous changes and fibrotic changes seen in both lungs. There is fluid and debris seen within the bronchus supplying the left lower lobe likely secondary to mucous plugging. visualized abdomen:The visualized solid organs of the abdomen appear unremarkable. Bones and soft tissues:The soft tissues and osseous structures appear unremarkable. IMPRESSION: No evidence for pulmonary emboli COPD and fibrosis stable from prior exam Debris seen within the bronchus supplying the left lower lobe likely secondary to mucous plugging. Electronically signed by: Alejandro Boswell MD 01/09/2020 10:13 AM CDT
[2020-01-09] MEDS ORDERED: SODIUM CHLORIDE 0.9% 1000ML 500 ML IVS ONE (10:30)
[2020-01-09] MEDS ORDERED: CLOPIDOGREL 75 MG TAB PO ONE (10:32)
[2020-01-09] MEDS ORDERED: ASPIRIN TABLET 325 MG TAB PO ONE (10:32)
[2020-01-09] MEDS ORDERED: levETIRAcetam 250 MG TAB PO ONE (10:33)
--- NOTE | 2020-01-09 11:30 | HP ---
SUPERVISING PHYSICIAN: Amado Palencia MD CHIEF COMPLAINT: Altered mental status. HISTORY OF PRESENT ILLNESS: Ms. Jackson is an 84 year-old female patient who was brought to the Emergency Room via EMS secondary to some lethargy this morning. She was found to be hypoxic on initial presentation with some mild pulmonary edema and actually positive for coronavirus with concerns for aspiration pneumonitis. Per EMS, the patient usually awakens daily around 5 or 6 AM, the family this morning went in to wake her up and were unable to do so. She does take a Fentanyl patch and hydrocodone for chronic back pain and family was denying that the patient had a possible overdose on medication and no recent illness was reported. There was some note of emesis in the bed, family thought maybe she had had a seizure, she does apparently have a seizure disorder and is on Keppra. In the Emergency Room, she was unable to arouse enough to give a significant history but was following commands and oxygen saturation on EMS arrival showed to be in the mid 80s but improved on 2 liter nasal cannula. Laboratory did show she had an elevation of troponin which was felt to be due to her hypoxia and acute pulmonary edema. The patient denied any chest pain, the patient has a pacer per previous history of a second degree type 2 block and EKG was showing a paced rhythm. CT of the chest showed some material in the left bronchi which could possibly be aspirated material. She was given a broad spectrum antibiotic coverage with meropenem, clindamycin, Rocephin and azithromycin in the Emergency Room. Her pulmonary edema corrected with the hypoxia with oxygen and she was maintaining 2 liters on nasal cannula and was much more awake. She tested positive for Covid-19 and was started on treatment with Remdesivir and Decadron and is now going to be admitted for further treatment of aspiration pneumonia with Covid pneumonitis. She was in stable condition at time of admission. PAST MEDICAL HISTORY: 1. Hypertension. 2. History of CVA in 2008. 3. History of DVT with a pulmonary embolism to the left leg, previously on Coumadin. 4. History of a subarachnoid hemorrhage in 2014 after a fall after being on Coumadin, was switched to aspirin. 5. History of pulmonary embolism in 1979. 6. History of past/current tobacco abuse. 7. History of diverticulosis. 8. History of urinary incontinence. 9. History of chronic pain in lower back, on Fentanyl and hydrocodone. 10. Osteoarthritis. 11. Seizure disorder. PAST SURGICAL HISTORY: 1. Appendectomy in . 2. Hysterectomy with bladder suspension in . 3. Idiosyncrasy neurotomies from L3 to S1 in 2008. 5. Multiple LESI at L4 and L5, 201e. 6. Pacemaker implantation. for second degree Mobitz type 2 block in October 2019, 7. Hypertension with Grade 1 diastolic dysfunction with mild aortic regurgitation. Last echocardiogram done in September 2018. CURRENT MEDICATIONS: Awaiting updated list of medications for verification. Please EMR and medical records. ALLERGIES: 1. Crestor. 2. Cymbalta. 3. Sulfa antibiotics. 4. Penicillin. 5. Ciprofloxacin. 6. Chantix. FAMILY HISTORY: Father at age 74 with lung cancer, long-term smoker. Mother at age 76 secondary type 2 diabetes and congestive heart failure. She has 6 brothers, 3 , one from [place], other from stomach cancer. Six sisters, 4 , one from vaginal cancer, one from brain cancer and other from lung cancer. One from from unknown causes. Sister has history of arthritis. She has 2 sons and 2 daughters. SOCIAL HISTORY: The patient is a homemaker, . Has a history of being a heavy smoker, one pack a day and quit within the last year. She denies any alcohol or illicit drug use. REVIEW OF SYSTEMS: Unable to obtain due to patient's mental status. PHYSICAL EXAMINATION: VITAL SIGNS: Initial presentation showed oxygen saturation 80s on room air. After treatment, improved to 93% on 2 liter nasal cannula. Blood pressure 123/78, respirations 85, she is afebrile at 97.4. GENERAL: The patient is ill in appearance, she answers specific question and follows simple commands. Speech is slow. HEENT: Tympanic membranes are clear bilaterally. Oropharynx is pink, moist, without any lesions. NECK: Non-tender, full range of motion, no jugular venous distention. CHEST: Crackles are noted to the bilateral bases, no wheezing or rhonchi. CARDIOVASCULAR: Regular rate and rhythm but paced. No JVD was noted. ABDOMEN: Obese, soft, non-tender, positive bowel sounds. EXTREMITIES: Without cyanosis, clubbing, or edema. NEUROLOGIC: She will open her eyes and converse slightly. Seems to be oriented to person, she follows basic commands. There is no obvious focal or motor deficits. Facial features are symmetrical. Extraocular movements within normal limits. There was no notable nystagmus. Her upper and lower extremities motor strength is weak. Cranial nerves II through XII appear to be grossly intact as assessed. SKIN: Bilateral skin warm, pink and dry. LABORATORY: White count 6,200, hemoglobin 12, hematocrit 36.6, platelet count 159,000, differential shows to be without a left shift. Lymphocyte count is low. Coagulation studies showed an elevated at 655, AST 7.4, PTT 28.3, potassium was elevated at 395. Initial chemistries showed sodium 139, calcium 9.3, lactic acid normal at 0.9. Liver functions within normal limits. Ammonia was normal at 11, C-reactive protein elevated at 3.6. Glucose 85 and 95. Urinalysis showed a small amount of bilirubin. Toxicology screen was positive for urine opiates but she is on multiple opioids including Fentanyl and hydrocodone. Acetaminophen was less than 2. Salicylates less than 4, all other screen was negative, ethyl alcohol less than 5. MICROBIOLOGY: Blood cultures are pending. Respiratory panel was positive for Covid-19, negative for all other viral and bacterial targets including influenza. RADIOLOGY: EKG showed a paced rhythm. Chest/Thoracic CTA showed no evidence of patient underwent embolus, underlying chronic obstructive pulmonary disease, fibrosis, there was some debris noted within the bronchus supplying the left lower lobe likely secondary to mucus plugging. CT of the head per radiology interpretation, no contrast, showed no acute intracranial findings visualized. ASSESSMENT: 1. Acute encephalopathy secondary to acute hypoxic event and exacerbated Covid pneumonitis. 2. Covid pneumonitis. 3. Acute pulmonary edema resolving with some oxygen. 4. Chronic obstructive pulmonary disease with exacerbation with possible aspiration verus developing pneumonia secondary to Covid-19 infection. 5. History of seizure disorder, unknown if patient had a seizure. Patient on Keppra. 6. Hypertension with grade 1 diastolic dysfunction. Last echocardiogram in 2019 showed ejection fraction of 45 to 50%. 7. History of subarachnoid hemorrhage status post fall in 2014, patient having previously on Coumadin. 8. History of hypercoagulopathy with history of DVTs and pulmonary embolus with current workup indicating negative for pulmonary emboli. 9. Chronic tobacco abuse, recently quit. 10. Chronic back pain on Fentanyl and hydrocodone. 11. Osteoarthritis. 12. B12 deficiency. 13. Elevated troponin levels likely due to acute hypoxic event with no reported chest pain and probably exacerbated by underlying Covid infection. PLAN: The patient is going to be admitted for treatment of Covid-19 pneumonitis and developing pneumonia, possibly aspiration pneumonia, alto it is more like a mucus plug than actual aspiration. She has multiple allergies. She was given a broad spectrum of antibiotic coverage in the Emergency Room and will continue this with azithromycin and Rocephin. She did get Decadron in the Emergency Room and is to be continued as well per protocol along with Remdesivir. Given her history of PE's and current Covid infection although she has had a subarachnoid which resulted from a fall, I will start her on Lovenox every 12 hours and basically will give her 40 mg every 12 hours. She will continue on Plavix and aspirin as well. Given that she did have some mental decreased levels reported, we did pull the Fentanyl patch and leave that off currently, will probably need to restart that tomorrow once she becomes more alert. Also, she has p.r.n. pain management which we will use. At this point, I want the patient a little bit more alert than she currently is. We will resume the rest of her medications as appropriate to her care. She will be on Protonix, Align. She will be on aggressive pulmonary hygiene along with albuterol inhaler. I would anticipate her length of stay to be at least 2 to 3 days and probably longer. She is quite ill and fragile with multiple comorbidities. In fact, her son was diagnosed with Covid-19 infection as well and was transferred on same of her admission to [place]. Until we can transition patient to outpatient management, we will continue to monitor and treat as needed. In regard to her code status, review of her records show she is a Full Code, however, at Dr. Schmitt' office she does have not Advance Directives and medical records shows that Maira Hodge is her power of parenting skills instructor and that the patient says she does not want to be kept alive if there is not a good chance of [facility] recovery so we need to further clarify that and clarification of her code status. #[id number] MTDD
[2020-01-09] MEDS ORDERED: HYDROcodone 10MG/APAP 325MG 1 EA TAB PO PRN (12:31)
[2020-01-09] MEDS ORDERED: SODIUM CHLORIDE 0.9% (FLUSH) 10 ML SYG IV PRN (12:42)
[2020-01-09] MEDS ORDERED: ACETAMINOPHEN 325 MG TAB PO PRN (12:42)
[2020-01-09] MEDS ORDERED: LEVOTHYROXINE SODIUM 0.112 MG TAB PO SCH (13:00)
[2020-01-09] MEDS ORDERED: FLUoxetine HCL 20 MG CAP PO SCH (13:00)
[2020-01-09] MEDS ORDERED: ALBUTEROL INHALER 64 PUFF/8GM INH PRN (13:01)
[2020-01-09] MEDS ORDERED: FLUoxetine HCL 10 MG CAP PO ONE (14:23)
[2020-01-09] MEDS ORDERED: levETIRAcetam 250 MG TAB ONE ×2 (14:24→20:34)
[2020-01-09] MEDS ORDERED: LEVOTHYROXINE SODIUM 0.1 MG TAB ONE (14:24)
[2020-01-09] MEDS ORDERED: LEVOTHYROXINE SODIUM 0.025 MG TAB ONE (14:24)
[2020-01-09] MEDS: LISINOPRIL 5 MG TAB PO SCH (14:39)
[2020-01-09] MEDS: LEVETIRACETAM 250 MG PO SCH ×2 (14:39→21:07)
[2020-01-09] MEDS: SUCRALFATE 1 GM TAB PO SCH ×3 (14:40→21:05)
[2020-01-09] MEDS: IV SET AND CAP CHANGE INJ INJ SCH (14:40)
[2020-01-09] MEDS: ALBUTEROL INHALER 64 PUFF/8GM INH SCH ×2 (16:20→21:00)
[2020-01-09] MEDS ORDERED: ATORVASTATIN 20 MG TAB PO ONE (17:10)
[2020-01-09] MEDS ORDERED: NON-FORMULARY MEDICATION 1 EA MIS (Atorvastatin Calcium [Atorvastatin Calcium] 40 MG) PO SCH (18:00)
[2020-01-09] MEDS: HYDROcodone 10MG/APAP 325MG 1 EA TAB PO PRN (18:10)
[2020-01-09] MEDS: hydrOXYzine HCl 25 MG TAB PO SCH (21:05)
[2020-01-09] MEDS: CLOPIDOGREL 75 MG TAB PO SCH (21:05)
[2020-01-10] MEDS ORDERED: PANTOPRAZOLE SODIUM IV 40 MG VIAL IV SCH (06:30)
[2020-01-10] MEDS ORDERED: MAGNESIUM SULFATE PREMIX 2GM 2 GM in PREMIX BAG 1 BAG IVPB ONE (07:59)
[2020-01-10] MEDS: ALBUTEROL INHALER 64 PUFF/8GM INH SCH ×4 (08:30→21:00)
[2020-01-10] MEDS ORDERED: MAGNESIUM SULFATE PREMIX 2GM 50 ML IVPB ONE (08:37)
[2020-01-10] MEDS ORDERED: DEXAMETHASONE INJ 10 MG/ML VIAL ONE (08:41)
[2020-01-10] MEDS ORDERED: REMDESIVIR 100 MG in SODIUM CHLORIDE 0.9% 250ML 250 ML IVPB SCH (09:00)
[2020-01-10] MEDS: LEVOTHYROXINE SODIUM 0.1 MG, LEVOTHYROXINE SODIUM 0.025 MG PO SCH ×2 (09:03)
[2020-01-10] MEDS: ASPIRIN (CHEWABLE) 81 MG TAB PO SCH (09:03)
[2020-01-10] MEDS: LISINOPRIL 5 MG TAB PO SCH (09:03)
[2020-01-10] MEDS: FLUoxetine HCL 10 MG CAP PO SCH (09:03)
[2020-01-10] MEDS: SUCRALFATE 1 GM TAB PO SCH ×4 (09:03→20:14)
[2020-01-10] MEDS: DEXAMETHASONE INJ 10 MG/ML VIAL IV SCH (09:04)
[2020-01-10] MEDS: ENOXAPARIN SODIUM 40 MG/0.4 ML SYG SUBCU SCH ×2 (09:04→20:14)
[2020-01-10] MEDS: levETIRAcetam 250 MG TAB PO SCH ×2 (09:04→20:14)
[2020-01-10] MEDS: SODIUM CHLORIDE 0.9% (FLUSH) 10 ML SYG IV PRN ×2 (09:05→20:13)
[2020-01-10] MEDS: AZITHROMYCIN IV 500 MG in SODIUM CHLORIDE 0.9% 250ML 250 ML IVPB SCH (10:20)
[2020-01-10] MEDS: NON-FORMULARY MEDICATION 1 EA MIS (Umeclidinium-Vilanterol [Anoro Ellipta 62.5-25 Mcg/Inh] IN SCH (10:54)
[2020-01-10] MEDS: cefTRIAXone SODIUM 1 GM in SODIUM CHL 0.9% 50ML MIN-BAG+ 50 ML IVPB SCH (12:57)
[2020-01-10] MEDS ORDERED: REMDESIVIR 100 MG ONE (14:24)
[2020-01-10] MEDS ORDERED: SODIUM CHLORIDE 0.9% 250ML 250 ML ONE (14:24)
--- NOTE | 2020-01-10 16:01 | PN ---
DATE: 01/10/20 SUPERVISING PHYSICIAN: Jonathan Torres MD SUBJECTIVE: Patient is sitting up in bed. She denies chest pain, nausea or vomiting, constipation OBJECTIVE: VITAL SIGNS: Temperature 97.9, heart rate 86, blood pressure 121/77, respiratory rate 17, oxygen saturation 96% on 2 liters nasal cannula. LABORATORY: WBC 7,800 with hemoglobin of 1.2, hematocrit 33.7. She has a left shift on her differential. PTT is 34.4 with fibrinogen of 429, D-dimer is 725. Electrolytes are basically within normal limits but her magnesium is 1.4, BUN 23, creatinine 0.8. AST 17, ALT 9, alkaline phosphatase 35, troponin 0.07, CRP 11.1. Preliminary blood cultures show no growth after 24 hours. All other labs and films have been reviewed via the EMR. ASSESSMENT: 1. Acute encephalopathy secondary to acute hypoxic event and exacerbated by Covid pneumonitis. 2. Covid pneumonitis. 3. Acute pulmonary edema resolving with some oxygen. 4. Chronic obstructive pulmonary disease with exacerbation with possible aspiration verus developing pneumonia secondary to Covid-19 infection. 5. History of seizure disorder, unknown if patient had a seizure. Patient on Keppra. 6. Hypertension with grade 1 diastolic dysfunction. Last echocardiogram in 2019 showed ejection fraction of 45 to 50%. 7. History of subarachnoid hemorrhage status post fall in 2014, patient having previously on Coumadin. 8. History of hypercoagulopathy with history of DVTs and pulmonary embolus with current workup indicating negative for pulmonary emboli. 9. Chronic tobacco abuse, recently quit. 10. Chronic back pain on Fentanyl and hydrocodone. 11. Osteoarthritis. 12. B12 deficiency. 13. Elevated troponin levels likely due to acute hypoxic event with no reported chest pain and probably exacerbated by underlying Covid infection. PLAN: We will continue present supportive care. She has been made a DNR. I have given her some magnesium supplementation. I will recheck her magnesium level later this afternoon and check her routine Covid labs for in the morning. Hopefully she can be discharged in the next 24 to 48 hours as long as she clinically improves. She has been on [facility]. #[id number] MTDD
[2020-01-10] MEDS: REMDESIVIR 100 MG in SODIUM CHLORIDE 0.9% 250ML 250 ML IVPB SCH (16:03)
[2020-01-10] MEDS: ATORVASTATIN 20 MG TAB PO SCH (20:13)
[2020-01-10] MEDS: BIFIDOBACTERIUM INFANTIS 4 MG CAP PO SCH (20:14)
[2020-01-10] MEDS: guaiFENesin ER TAB 600 MG TAB PO SCH (20:14)
[2020-01-10] MEDS: CLOPIDOGREL 75 MG TAB PO SCH (20:14)
[2020-01-10] MEDS: hydrOXYzine HCl 25 MG TAB PO SCH (20:14)
[2020-01-10] MEDS: HYDROcodone 10MG/APAP 325MG 1 EA TAB PO PRN (20:14)
[2020-01-11] MEDS ORDERED: PANTOPRAZOLE SODIUM IV 40 MG VIAL ONE (03:46)
[2020-01-11] MEDS ORDERED: PANTOPRAZOLE SODIUM TAB 40 MG PO ONE (03:49)
[2020-01-11] MEDS: LEVOTHYROXINE SODIUM 0.1 MG, LEVOTHYROXINE SODIUM 0.025 MG PO SCH ×2 (05:28)
[2020-01-11] MEDS: PANTOPRAZOLE SODIUM TAB 40 MG PO SCH (05:30)
[2020-01-11] MEDS: SUCRALFATE 1 GM TAB PO SCH ×4 (05:31→20:27)
[2020-01-11] MEDS ORDERED: POTASSIUM CHLORIDE 20 MEQ TAB PO ONE (08:49)
[2020-01-11] MEDS: AZITHROMYCIN IV 500 MG in SODIUM CHLORIDE 0.9% 250ML 250 ML IVPB SCH (08:54)
[2020-01-11] MEDS: DEXAMETHASONE INJ 10 MG/ML VIAL IV SCH (08:54)
[2020-01-11] MEDS: ENOXAPARIN SODIUM 40 MG/0.4 ML SYG SUBCU SCH ×2 (08:54→20:26)
[2020-01-11] MEDS: BIFIDOBACTERIUM INFANTIS 4 MG CAP PO SCH ×2 (08:55→20:27)
[2020-01-11] MEDS: guaiFENesin ER TAB 600 MG TAB PO SCH ×2 (08:55→20:26)
[2020-01-11] MEDS: LISINOPRIL 5 MG TAB PO SCH (08:55)
[2020-01-11] MEDS: levETIRAcetam 250 MG TAB PO SCH ×2 (08:55→20:26)
[2020-01-11] MEDS: ALBUTEROL INHALER 64 PUFF/8GM INH SCH ×4 (08:55→20:56)
[2020-01-11] MEDS: HYDROcodone 10MG/APAP 325MG 1 EA TAB PO PRN ×2 (08:55→20:27)
[2020-01-11] MEDS: FLUoxetine HCL 10 MG CAP PO SCH (08:55)
[2020-01-11] MEDS: ASPIRIN (CHEWABLE) 81 MG TAB PO SCH (08:55)
[2020-01-11] MEDS: NON-FORMULARY MEDICATION 1 EA MIS (Umeclidinium-Vilanterol [Anoro Ellipta 62.5-25 Mcg/Inh] IN SCH (09:15)
[2020-01-11] MEDS ORDERED: POTASSIUM CHLORIDE 20 MEQ TAB ONE (09:17)
[2020-01-11] MEDS: cefTRIAXone SODIUM 1 GM in SODIUM CHL 0.9% 50ML MIN-BAG+ 50 ML IVPB SCH (11:18)
[2020-01-11] MEDS: REMDESIVIR 100 MG in SODIUM CHLORIDE 0.9% 250ML 250 ML IVPB SCH (15:58)
--- NOTE | 2020-01-11 19:35 | PN ---
SUPERVISING PHYSICIAN: Cecilio Torres MD DATE: 01/11/20 SUBJECTIVE: The patient is sitting up on the side of the bed. The nurse is at the bedside. She complains of weakness, but no shortness of breath or chest pain. OBJECTIVE: VITAL SIGNS: Temperature 98.4, heart rate 86, blood pressure 134/86, respiratory rate 18, oxygen saturation 97% on 2 liters nasal cannula. RESPIRATORY: Diminished at the bases. Otherwise, clear to auscultation. CARDIAC: Regular rate and rhythm. NEUROLOGIC: She is awake and alert, but looks to be rather fatigued. LABORATORY: WBC 7.6, hemoglobin 10.9, hematocrit 32.6. She has a left shift on her differential. PTT is 40.5, D-dimer 658. Electrolytes are basically within normal limits with the exception of her potassium is slightly low at 3.5. C- reactive protein is 6.5. MICROBIOLOGY: Stool studies are pending with the exception of her C. difficile is negative for both antigen and toxin and her rotavirus is negative. Fecal leukocytes are positive. Preliminary blood cultures show no growth after 48 hours. All other labs and films have been reviewed via the EMR. ASSESSMENT: 1. Acute encephalopathy secondary to acute hypoxic event and exacerbated COVID pneumonitis. 2. COVID pneumonitis. 3. Acute pulmonary edema resolving with some oxygen. 4. Chronic obstructive pulmonary disease with exacerbation with possible aspiration verus developing pneumonia secondary to COVID-19 infection. 5. History of seizure disorder, unknown if patient had a seizure. The patient is on Keppra. 6. Hypertension with grade 1 diastolic dysfunction. Last echocardiogram in 2019 showed ejection fraction of 45 to 50%. 7. History of subarachnoid hemorrhage status post fall in 2014, patient having previously been on Coumadin. 8. History of hypercoagulopathy with history of deep venous thromboses and pulmonary embolus with current workup indicating negative for pulmonary emboli. 9. Chronic tobacco abuse, recently quit. 10. Chronic back pain on fentanyl and hydrocodone. 11. Osteoarthritis. 12. B12 deficiency. 13. Elevated troponin levels likely due to acute hypoxic event with no report chest pain and probably exacerbated by underlying COVID infection. PLAN: We will continue present supportive care. I will draw her COVID lab for in the morning. We will try to discontinue her oxygen. I have given her some potassium supplementation. I have also done a dietary consultation. It was reported that she is doing well without her fentanyl patch and it may be advisable to discontinue that after discharge to see how she does on just hydrocodone p.r.n. We will continue to monitor the patient closely and follow as needed. #[id number] MTDD
[2020-01-11] MEDS: SODIUM CHLORIDE 0.9% (FLUSH) 10 ML SYG IV PRN (20:25)
[2020-01-11] MEDS: CLOPIDOGREL 75 MG TAB PO SCH (20:26)
[2020-01-11] MEDS: hydrOXYzine HCl 25 MG TAB PO SCH (20:27)
[2020-01-11] MEDS: ATORVASTATIN 20 MG TAB PO SCH (20:27)
[2020-01-12] MEDS: LEVOTHYROXINE SODIUM 0.1 MG, LEVOTHYROXINE SODIUM 0.025 MG PO SCH ×2 (05:42)
[2020-01-12] MEDS: PANTOPRAZOLE SODIUM TAB 40 MG PO SCH (05:42)
[2020-01-12] MEDS: SUCRALFATE 1 GM TAB PO SCH ×5 (05:43→20:29)
--- NOTE | 2020-01-12 07:25 | RAD ---
: 1935. Technique: Portable AP upright chest x-ray. Comparison: 01/09/2020. Clinical history: covid PNA. Heart size: Normal heart size. Left transvenous pacemaker. Lungs: There are trapping from COPD. Improved inspiration in the exam interval. Interstitial opacities also better from resolving interstitial edema or pneumonitis. Pleura: No pleural effusion. No pneumothorax. Mediastinum and nakia: Unremarkable. Skeletal: Thoracolumbar scoliosis. Support tubings: None. Impression: 1. Improved pulmonary expansion and aeration. Electronically signed by: Tony Zhang MD 01/12/2020 7:23 AM CDT
[2020-01-12] MEDS: ALBUTEROL INHALER 64 PUFF/8GM INH SCH ×4 (07:30→21:04)
[2020-01-12] MEDS: BIFIDOBACTERIUM INFANTIS 4 MG CAP PO SCH ×2 (08:04→20:32)
[2020-01-12] MEDS: levETIRAcetam 250 MG TAB PO SCH ×2 (08:04→20:29)
[2020-01-12] MEDS: FLUoxetine HCL 10 MG CAP PO SCH (08:04)
[2020-01-12] MEDS: guaiFENesin ER TAB 600 MG TAB PO SCH ×2 (08:04→20:29)
[2020-01-12] MEDS: LISINOPRIL 5 MG TAB PO SCH (08:04)
[2020-01-12] MEDS: ENOXAPARIN SODIUM 40 MG/0.4 ML SYG SUBCU SCH ×2 (08:04→20:29)
[2020-01-12] MEDS: ASPIRIN (CHEWABLE) 81 MG TAB PO SCH (08:04)
[2020-01-12] MEDS: DEXAMETHASONE INJ 10 MG/ML VIAL IV SCH (08:04)
[2020-01-12] MEDS: NON-FORMULARY MEDICATION 1 EA MIS (Umeclidinium-Vilanterol [Anoro Ellipta 62.5-25 Mcg/Inh] IN SCH (08:05)
[2020-01-12] MEDS: ONDANSETRON INJ 4 MG/2 ML VIAL IV PRN ×2 (08:15→15:24)
[2020-01-12] MEDS: AZITHROMYCIN IV 500 MG in SODIUM CHLORIDE 0.9% 250ML 250 ML IVPB SCH (08:20)
[2020-01-12] MEDS ORDERED: PROMETHAZINE HCL INJ 12.5 MG in SODIUM CHLORIDE 0.9% 50ML 50 ML IVPB ONE ×2 (09:05→18:12)
[2020-01-12] MEDS ORDERED: MAGNESIUM SULFATE PREMIX 2GM 2 GM in PREMIX BAG 1 BAG IVPB ONE (09:06)
[2020-01-12] MEDS ORDERED: SODIUM CHLORIDE 0.9% 50ML 50 ML ONE ×3 (09:15→23:06)
[2020-01-12] MEDS ORDERED: PROMETHAZINE HCL INJ 25 MG/ML VIAL ONE ×3 (09:15→23:04)
[2020-01-12] MEDS: HYDROcodone 10MG/APAP 325MG 1 EA TAB PO PRN ×3 (09:21→20:33)
[2020-01-12] MEDS ORDERED: METOCLOPRAMIDE HCL INJ 10 MG/2 ML VIAL IV ONE (09:40)
[2020-01-12] MEDS ORDERED: MAGNESIUM SULFATE PREMIX 2GM 50 ML IVPB ONE (09:47)
[2020-01-12] MEDS: IV SET AND CAP CHANGE INJ INJ SCH (12:07)
[2020-01-12] MEDS: cefTRIAXone SODIUM 1 GM in SODIUM CHL 0.9% 50ML MIN-BAG+ 50 ML IVPB SCH (12:07)
[2020-01-12] MEDS ORDERED: ALPRAZolam 0.25 MG TAB PO ONE (13:15)
[2020-01-12] MEDS ORDERED: ALUM & MAG HYDROX-SIMETHICONE 30 ML, LIDOCAINE VISCOUS 2% 15 ML PO ONE ×2 (14:00)
[2020-01-12] MEDS ORDERED: SODIUM CHLORIDE 0.9% 250ML 0 ML ONE (14:43)
[2020-01-12] MEDS: REMDESIVIR 100 MG in SODIUM CHLORIDE 0.9% 250ML 250 ML IVPB SCH (15:31)
[2020-01-12] MEDS ORDERED: fentaNYL PATCH 25 MCG/HR 1 EA PATCH ONE (16:03)
[2020-01-12] MEDS: fentaNYL PATCH 25 MCG/HR 1 EA PATCH TD SCH (16:07)
--- NOTE | 2020-01-12 19:23 | PN ---
SUPERVISING PHYSICIAN: Cecilio Torres MD DATE: 01/12/20 SUBJECTIVE: The patient has been very restless and very wade as far as asking the nurses to do a lot of stuff. However, she has complained of some chest pain which she describes as epigastric discomfort or burning but no actual increasing shortness of breath. OBJECTIVE: VITAL SIGNS: Temperature 98, heart rate 76, blood pressure 122/81, respiratory rate 18, oxygen saturation 96% on room air. GENERAL: Patient looks to be resting comfortably and in no acute distress. CHEST: Lung sounds diminished bilaterally but no obvious wheezing or rhonchi. HEART: Regular rate and rhythm. ABDOMEN: Soft with some tenderness in the epigastrium. Bowel sounds are present. NEUROLOGIC: She is awake and alert, a little agitated at times.. SKIN: Warm, pink and dry. LABORATORY: White count 6,700, hemoglobin stable at 10.8, hematocrit 32.1, platelet count 170,000, differential shows a left shift. Coagulation studies showed D-dimer down to 542, PTT 36.1. Chemistries initially this morning showed potassium 3.5, glucose 80, magnesium 1.4. C-reactive protein 3.6. Stool workup still pending. MICROBIOLOGY: She is positive for stool leukocytes, negative for C. difficile. Culture still pending. Negative for rotavirus. Blood cultures remain negative for 3 ays. RADIOLOGY: Repeat chest x-ray this morning per radiology interpretation showed improved pulmonary expansion and aeration.. ASSESSMENT: 1. Acute encephalopathy secondary to acute hypoxic event and exacerbated COVID pneumonitis. 2. COVID pneumonitis. 3. Chest pain, epigastric region, need to rule acute coronary syndrome. 4. Acute pulmonary edema resolving with some oxygen. 5. Chronic obstructive pulmonary disease with exacerbation with possible aspiration verus developing pneumonia secondary to COVID-19 infection. 6. History of seizure disorder, unknown if patient had a seizure. The patient is on Keppra. 7. Hypertension with grade 1 diastolic dysfunction. Last echocardiogram in 2019 showed ejection fraction of 45 to 50%. 8. History of subarachnoid hemorrhage status post fall in 2014, patient having previously been on Coumadin. 9. History of hypercoagulopathy with history of deep venous thromboses and pulmonary embolus with current workup indicating negative for pulmonary emboli. 10. Chronic tobacco abuse, recently quit. 11. Chronic back pain on fentanyl and hydrocodone. 12. Osteoarthritis. 13. B12 deficiency. 14. Elevated troponin levels likely due to acute hypoxic event with no report chest pain and probably exacerbated by underlying COVID infection. PLAN: We will continue with current plan for Covid labs and oxygen as needed. She remains on azithromycin, Rocephin and Decadron, Lovenox. I have ordered labs in regard to her chest discomfort. Will follow those when they are available. Check an EKG. We will reevaluate in the morning. Until the, we will continue to monitor and treat as needed. #[id number] [facility]
--- NOTE | 2020-01-12 19:54 | CT ---
EXAM DESCRIPTION: Abdomen/Pelvis w/Contrast CLINICAL HISTORY: 84 years Female abdominal pain COMPARISON: November 12, 2019 TECHNIQUE: Images were obtained in axial, sagittal, and coronal planes. Intravenous contrast was administered. This exam was performed according to our departmental dose-optimization program which includes use of Automated Exposure Control, adjustment of the mA and/or kV according to patient size and/or use of iterative reconstruction technique. FINDINGS: No abnormality involving the liver, spleen, gallbladder, or adrenal glands bilaterally. Atrophic pancreas. Hepatic cysts unchanged No obstructing renal or ureteral calculi bilaterally. No hydronephrosis bilaterally. Unremarkable bladder. Calcification abdominal aorta with no definite dilatation seen. Unremarkable portal vein. No adenopathy or abnormal fluid collections seen. Pessary within the pelvis. Appendix not well identified however no secondary signs for appendicitis. No bowel obstruction or perforation. Marked diverticulosis distal left colon with associated mucosal thickening. Previously noted mucosal thickening involving the rectal region resolved. Atelectatic change versus infiltrate left lower lobe. Previously noted right pleural effusion no longer present. No acute osseous abnormality. Minimal scoliosis thoracolumbar spine with associated mild to moderate degenerative change. IMPRESSION: Marked diverticulosis distal left colon with mucosal thickening likely colitis. Previously noted proctitis resolved. Left lower lobe atelectatic change versus infiltrate. Previously noted right pleural effusion resolved. Electronically signed by: Afua Blank MD 01/12/2020 7:53 PM CDT
[2020-01-12] MEDS: SODIUM CHLORIDE 0.9% (FLUSH) 10 ML SYG IV PRN (20:25)
[2020-01-12] MEDS: hydrOXYzine HCl 25 MG TAB PO SCH (20:30)
[2020-01-12] MEDS: ATORVASTATIN 20 MG TAB PO SCH (20:32)
[2020-01-12] MEDS: CLOPIDOGREL 75 MG TAB PO SCH (20:33)
[2020-01-12] MEDS: PROMETHAZINE HCL INJ 12.5 MG in SODIUM CHLORIDE 0.9% 50ML 50 ML IVPB PRN (23:07)
[2020-01-13] MEDS: LEVOTHYROXINE SODIUM 0.1 MG, LEVOTHYROXINE SODIUM 0.025 MG PO SCH ×2 (05:40)
[2020-01-13] MEDS: PANTOPRAZOLE SODIUM TAB 40 MG PO SCH (05:40)
[2020-01-13] MEDS: ALBUTEROL INHALER 64 PUFF/8GM INH SCH ×4 (08:15→20:55)
[2020-01-13] MEDS ORDERED: POTASSIUM CHLORIDE 20 MEQ TAB PO ONE (08:41)
[2020-01-13] MEDS: BIFIDOBACTERIUM INFANTIS 4 MG CAP PO SCH ×2 (10:37→20:27)
[2020-01-13] MEDS: SUCRALFATE 1 GM TAB PO SCH ×4 (10:37→20:27)
[2020-01-13] MEDS: ASPIRIN (CHEWABLE) 81 MG TAB PO SCH (10:37)
[2020-01-13] MEDS: DEXAMETHASONE INJ 10 MG/ML VIAL IV SCH (10:37)
[2020-01-13] MEDS: levETIRAcetam 250 MG TAB PO SCH ×2 (10:38→20:28)
[2020-01-13] MEDS: guaiFENesin ER TAB 600 MG TAB PO SCH ×2 (10:38→20:28)
[2020-01-13] MEDS: HYDROcodone 10MG/APAP 325MG 1 EA TAB PO PRN ×2 (10:40→18:00)
[2020-01-13] MEDS: LISINOPRIL 5 MG TAB PO SCH (10:40)
[2020-01-13] MEDS: FLUoxetine HCL 10 MG CAP PO SCH (10:40)
[2020-01-13] MEDS: NON-FORMULARY MEDICATION 1 EA MIS (Umeclidinium-Vilanterol [Anoro Ellipta 62.5-25 Mcg/Inh] IN SCH (10:53)
[2020-01-13] MEDS: AZITHROMYCIN IV 500 MG in SODIUM CHLORIDE 0.9% 250ML 250 ML IVPB SCH (10:54)
[2020-01-13] MEDS: ENOXAPARIN SODIUM 40 MG/0.4 ML SYG SUBCU SCH ×2 (10:55→20:28)
[2020-01-13] MEDS: cefTRIAXone SODIUM 1 GM in SODIUM CHL 0.9% 50ML MIN-BAG+ 50 ML IVPB SCH (15:34)
[2020-01-13] MEDS: REMDESIVIR 100 MG in SODIUM CHLORIDE 0.9% 250ML 250 ML IVPB SCH (16:05)
[2020-01-13] MEDS: hydrOXYzine HCl 25 MG TAB PO SCH (20:27)
[2020-01-13] MEDS: CLOPIDOGREL 75 MG TAB PO SCH (20:28)
[2020-01-13] MEDS: ATORVASTATIN 20 MG TAB PO SCH (20:28)
[2020-01-14] MEDS: PROMETHAZINE HCL INJ 12.5 MG in SODIUM CHLORIDE 0.9% 50ML 50 ML IVPB PRN (02:39)
[2020-01-14] MEDS: ONDANSETRON INJ 4 MG/2 ML VIAL IV PRN ×2 (04:03→08:11)
[2020-01-14] MEDS: PANTOPRAZOLE SODIUM TAB 40 MG PO SCH (06:13)
[2020-01-14] MEDS: LEVOTHYROXINE SODIUM 0.1 MG, LEVOTHYROXINE SODIUM 0.025 MG PO SCH ×2 (06:13)
[2020-01-14] MEDS: SUCRALFATE 1 GM TAB PO SCH ×4 (06:14→20:08)
[2020-01-14] MEDS ORDERED: POTASSIUM CHLORIDE 20 MEQ TAB PO ONE (06:18)
[2020-01-14] MEDS: HYDROcodone 10MG/APAP 325MG 1 EA TAB PO PRN ×3 (07:23→23:48)
[2020-01-14] MEDS: ENOXAPARIN SODIUM 40 MG/0.4 ML SYG SUBCU SCH ×2 (08:11→20:07)
[2020-01-14] MEDS: DEXAMETHASONE INJ 10 MG/ML VIAL IV SCH (08:12)
[2020-01-14] MEDS: FLUoxetine HCL 10 MG CAP PO SCH (08:12)
[2020-01-14] MEDS: AZITHROMYCIN IV 500 MG in SODIUM CHLORIDE 0.9% 250ML 250 ML IVPB SCH (08:12)
[2020-01-14] MEDS: guaiFENesin ER TAB 600 MG TAB PO SCH ×2 (08:12→20:07)
[2020-01-14] MEDS: levETIRAcetam 250 MG TAB PO SCH ×2 (08:12→20:08)
[2020-01-14] MEDS: NON-FORMULARY MEDICATION 1 EA MIS (Umeclidinium-Vilanterol [Anoro Ellipta 62.5-25 Mcg/Inh] IN SCH (08:13)
[2020-01-14] MEDS: ASPIRIN (CHEWABLE) 81 MG TAB PO SCH (08:13)
[2020-01-14] MEDS: SODIUM CHLORIDE 0.9% (FLUSH) 10 ML SYG IV PRN (08:13)
[2020-01-14] MEDS: LISINOPRIL 5 MG TAB PO SCH (08:13)
[2020-01-14] MEDS: BIFIDOBACTERIUM INFANTIS 4 MG CAP PO SCH ×2 (08:13→20:08)
--- NOTE | 2020-01-14 08:44 | PN ---
SUPERVISING PHYSICIAN: Cecilio Torres MD DATE: 01/13/20 SUBJECTIVE: The patient seems to be doing well today. She has been up and about in her room. She is starting to eat. She has had no further complaints of any kind of discomfort to her epigastric region, no more diarrhea. She remains afebrile. OBJECTIVE: VITAL SIGNS: Temperature 98.1, pulse 77, blood pressure 145/88, respirations 18, saturation 97% on room air. GENERAL: The patient is resting comfortably in no acute distress. CHEST: Lung sounds remain diminished towards the bases with no obvious wheezing or rales. HEART: Regular rate and paced rhythm. ABDOMEN: Soft, nontender. Positive bowel sounds. NEUROLOGIC: Alert and oriented times three. SKIN: Warm, pink and dry. LABORATORY: Coagulation studies show D-dimer 534. Chemistries show a little low sodium at 130, potassium 2.9, BUN 14, creatinine 0.67. Troponin is elevated at 0.13 this morning compared to yesterday at 0.8. C-reactive protein is 2.4. MICROBIOLOGY: Blood cultures remains negative after 4 days. RADIOLOGY: No additional radiographic studies today. ASSESSMENT: 1. Acute encephalopathy secondary to acute hypoxic event and exacerbated COVID pneumonitis. 2. COVID pneumonitis. 3. Chest pain, epigastric region, pain resolved with GI cocktail, although troponins continue to show some elevation. 4. Acute pulmonary edema resolving with some oxygen. 5. Chronic obstructive pulmonary disease with exacerbation with possible aspiration verus developing pneumonia secondary to COVID-19 infection. 6. History of seizure disorder, unknown if patient had a seizure. The patient is on Keppra. 7. Hypertension with grade 1 diastolic dysfunction. Last echocardiogram in 2019 showed ejection fraction of 45 to 50%. 8. History of subarachnoid hemorrhage status post fall in 2014, patient having previously been on Coumadin. 9. History of hypercoagulopathy with history of deep venous thromboses and pulmonary embolus with current workup indicating negative for pulmonary emboli. 10. Chronic tobacco abuse, recently quit. 11. Chronic back pain on fentanyl and hydrocodone. 12. Osteoarthritis. 13. B12 deficiency. 14. Elevated troponin levels likely due to acute hypoxic event with no report chest pain and probably exacerbated by underlying COVID infection. PLAN: We continue current plan of care. At this point, it may be a good idea to see if maybe Dr. Truong will see the patient in consultation tomorrow because I think she should be ready to discharge honestly and labs are showing some trending down and clinically she is improved. The only abnormal labs that were of concern were just elevated troponin. With the paced rhythm, there is no way to tell if she has an acute injury going on although she does not complain of any chest pain at this point. I think part of her problem actually in the last several days was put her into small likely withdrawal from opioids. I did resume her fentanyl patch at 25 mcg, which she was on 50 mcg, and she has been getting her p.o. [place] and she seems to be doing okay with this. If she does go home with the 25 mcg of fentanyl, she will need a new script for that. I have not had time to discuss the case with Dr. Schmitt, but, again, the patient seems to be doing well with that dosing. We will recheck labs in the morning including troponin and hopefully we can discharge her to outpatient management. Until then, we will continue to monitor and treat as needed. #[id number] [facility]
[2020-01-14] MEDS: ALBUTEROL INHALER 64 PUFF/8GM INH SCH ×4 (09:00→21:05)
[2020-01-14] MEDS: POTASSIUM CHLORIDE 20 MEQ TAB PO SCH ×2 (11:10→14:43)
[2020-01-14] MEDS ORDERED: MAGNESIUM SULFATE PREMIX 2GM 2 GM in PREMIX BAG 1 BAG IVPB ONE (11:13)
[2020-01-14] MEDS: cefTRIAXone SODIUM 1 GM in SODIUM CHL 0.9% 50ML MIN-BAG+ 50 ML IVPB SCH (11:51)
--- NOTE | 2020-01-14 17:11 | PN ---
SUPERVISING PHYSICIAN: Jonathan Torres MD DATE: 01/14/20 SUBJECTIVE: The patient is being assisted to the bedside commode by her nurse. She is very weak and clinging to the nurse, very dizzy, although the patient has only minimal complaints. Nursing reports she has difficulty getting up and down and she has to get up and down quite frequently during the night. She denies chest pain, nausea or vomiting. OBJECTIVE: VITAL SIGNS: Temperature 97.7, heart rate 85, blood pressure 158/91, respiratory rate 16, oxygen saturation 97% on room air. CHEST: Diminished at the bases. CARDIAC: Regular rate and rhythm. NEUROLOGIC: The patient is awake, alert, and oriented x3. LABORATORY: Her initial sodium 131, potassium 2.8, chloride 100, magnesium 1.4. After supplementation her potassium is 4.1, magnesium 2.4. Final blood cultures show no growth after 5 days. All other labs and films have been reviewed via the EMR. ASSESSMENT: 1. Acute encephalopathy secondary to acute hypoxic event and exacerbated COVID pneumonitis. 2. COVID pneumonitis. 3. Chest pain, on initial presentation, epigastric region, pain resolved with GI cocktail, although troponins continue to show some elevation. 4. Acute pulmonary edema resolving with some oxygen. 5. Chronic obstructive pulmonary disease with exacerbation with possible aspiration verus developing pneumonia secondary to COVID-19 infection. 6. History of seizure disorder, unknown if patient had a seizure. The patient is on Keppra. 7. Hypertension with grade 1 diastolic dysfunction. Last echocardiogram in 2019 showed ejection fraction of 45 to 50%. 8. History of subarachnoid hemorrhage status post fall in 2014, patient having previously been on Coumadin. 9. History of hypercoagulopathy with history of deep venous thromboses and pulmonary embolus with current workup indicating negative for pulmonary emboli. 10. Chronic tobacco abuse, recently quit. 11. Chronic back pain on fentanyl and hydrocodone. 12. Osteoarthritis. 13. B12 deficiency. 14. Elevated troponin levels likely due to acute hypoxic event with no further reports of chest pain and probably exacerbated by underlying COVID infection. PLAN: We will continue present supportive care. We will repeat some lab in the morning to make sure that is stabilized. She was much weaker today so I spoke at length to the daughter about possible discharge to a [facility] with physical therapy and she did allow us to send her referral to [facility]. She will need physical therapy after she comes off isolation. I will call her tomorrow and discuss the patient's discharge plan. I have also consulted physical therapy again as I think she is much weaker today than she was earlier in the week. I wanted to make sure she is safe for going home with home health. It is to be noted that the patient does get up about 2 to 3 times every hour and frequently gets up without assistance. Hopefully, she can be discharged safely tomorrow and we will monitor closely and follow as needed. #[id number] [facility]
[2020-01-14] MEDS: ATORVASTATIN 20 MG TAB PO SCH (20:07)
[2020-01-14] MEDS: CLOPIDOGREL 75 MG TAB PO SCH (20:07)
[2020-01-14] MEDS: hydrOXYzine HCl 25 MG TAB PO SCH (20:07)
[2020-01-15] MEDS: LEVOTHYROXINE SODIUM 0.1 MG, LEVOTHYROXINE SODIUM 0.025 MG PO SCH ×2 (06:14)
[2020-01-15] MEDS: PANTOPRAZOLE SODIUM TAB 40 MG PO SCH (06:15)
[2020-01-15] MEDS: SUCRALFATE 1 GM TAB PO SCH ×4 (06:15→20:14)
--- NOTE | 2020-01-15 06:38 | RAD ---
PROCEDURE:XR CHEST 1 VIEW HISTORY:covid COMPARISON: January 12, 2020 FINDINGS: A left-sided pacemaker device is seen in good position. The heart appears unremarkable. The lungs are clear there is no alveolar consolidation, effusion or pneumothorax. The osseous structures and soft tissues are normal. IMPRESSION: No acute cardiopulmonary process. Electronically signed by: Alejandro Boswell MD 01/15/2020 6:36 AM CDT
[2020-01-15] MEDS: HYDROcodone 10MG/APAP 325MG 1 EA TAB PO PRN (07:09)
[2020-01-15] MEDS: ALBUTEROL INHALER 64 PUFF/8GM INH SCH ×4 (08:36→20:00)
[2020-01-15] MEDS ORDERED: MAGNESIUM SULFATE PREMIX 2GM 2 GM in PREMIX BAG 1 BAG IVPB ONE (08:48)
[2020-01-15] MEDS: guaiFENesin ER TAB 600 MG TAB PO SCH ×2 (09:00→20:15)
[2020-01-15] MEDS: BIFIDOBACTERIUM INFANTIS 4 MG CAP PO SCH ×2 (09:00→20:14)
[2020-01-15] MEDS: ASPIRIN (CHEWABLE) 81 MG TAB PO SCH (09:00)
[2020-01-15] MEDS: FLUoxetine HCL 10 MG CAP PO SCH (09:00)
[2020-01-15] MEDS: LISINOPRIL 5 MG TAB PO SCH (09:00)
[2020-01-15] MEDS: levETIRAcetam 250 MG TAB PO SCH ×2 (09:01→20:15)
[2020-01-15] MEDS: DEXAMETHASONE INJ 10 MG/ML VIAL IV SCH (09:01)
[2020-01-15] MEDS: ENOXAPARIN SODIUM 40 MG/0.4 ML SYG SUBCU SCH ×2 (09:01→20:14)
[2020-01-15] MEDS ORDERED: MAGNESIUM SULFATE PREMIX 2GM 50 ML IVPB ONE (09:06)
[2020-01-15] MEDS: NON-FORMULARY MEDICATION 1 EA MIS (Umeclidinium-Vilanterol [Anoro Ellipta 62.5-25 Mcg/Inh] IN SCH (09:24)
[2020-01-15] MEDS: AZITHROMYCIN IV 500 MG in SODIUM CHLORIDE 0.9% 250ML 250 ML IVPB SCH (10:03)
[2020-01-15] MEDS: cefTRIAXone SODIUM 1 GM in SODIUM CHL 0.9% 50ML MIN-BAG+ 50 ML IVPB SCH (12:48)
[2020-01-15] MEDS: IV SET AND CAP CHANGE INJ INJ SCH (12:48)
[2020-01-15] MEDS ORDERED: SODIUM CHLORIDE 0.9% 500ML 500 ML IVS ONE (12:53)
[2020-01-15] MEDS ORDERED: SODIUM CHLORIDE 0.9% 500ML 500 ML ONE (13:35)
[2020-01-15] MEDS: fentaNYL PATCH 25 MCG/HR 1 EA PATCH TD SCH (16:27)
--- NOTE | 2020-01-15 17:06 | PN ---
SUPERVISING PHYSICIAN: Jonathan Torres MD DATE: 01/15/20 SUBJECTIVE: The patient is lying in bed asleep. She awakens easily. She is more confused today than normal. Nursing has reported that she gets out of bed without calling and her bed alarm has been going off quite frequently. She does not follow instructions well but mostly due to her confusion. I did speak to her daughter at length about my concerns for her going home due to safety issues. They have decided she will be discharged home when appropriate and they are going to have sitters as well as they are getting a bed alarm, Again, I cautioned her that it was felt she was not safe to be unattended and they have assured me that she will be monitored 24 hours daily. OBJECTIVE: VITAL SIGNS: Temperature 98.3, heart rate 86, blood pressure 138/71, respiratory rate 20, oxygen saturation 97% on room air. CHEST: Diminished at the bases, otherwise, clear to auscultation. CARDIAC: Regular rate and rhythm. NEUROLOGIC: The patient is awake, alert, and oriented to person and place but somewhat confused. LABORATORY: WBC 7.6 with hemoglobin 12, hematocrit 35. PTT is 32.1 with D- dimer of 360. Sodium down to 127, potassium 3.9, chloride 94, calcium 8.6, magnesium normal at 0.7. Troponin has decreased to 0.1. CRP 1.5. Her final blood cultures showed no growth after 5 days. Chest x-ray shows no acute cardiopulmonary process. All other labs and films have been reviewed via the EMR. ASSESSMENT: 1. Acute encephalopathy secondary to acute hypoxic event and exacerbated COVID pneumonitis. 2. COVID pneumonitis. 3. Chest pain, epigastric region, pain resolved with GI cocktail, although troponins continue to show some elevation. 4. Acute pulmonary edema resolving with some oxygen. 5. Chronic obstructive pulmonary disease with exacerbation with possible aspiration verus developing pneumonia secondary to COVID-19 infection. 6. History of seizure disorder, unknown if patient had a seizure. The patient is on Keppra. 7. Hypertension with grade 1 diastolic dysfunction. Last echocardiogram in 2019 showed ejection fraction of 45 to 50%. 8. History of subarachnoid hemorrhage status post fall in 2014, patient having previously been on Coumadin. 9. History of hypercoagulopathy with history of deep venous thromboses and pulmonary embolus with current workup indicating negative for pulmonary emboli. 10. Chronic tobacco abuse, recently quit. 11. Chronic back pain on fentanyl and hydrocodone. 12. Osteoarthritis. 13. B12 deficiency. 14. Elevated troponin levels likely due to acute hypoxic event with no report chest pain and probably exacerbated by underlying COVID infection. PLAN: We will continue present supportive care at this time due to her low sodium as well as increased confusion. I have put her on fluid restrictions and have given half liter of saline very slowly over the next 24 hours. Her family has decided that she will come home and as I did previously, I cautioned them that the patient is very confused and she will have to have close followup and she understood. I will repeat her chemistries for in the morning as well as a CBC and hopefully she can be discharged home tomorrow. We will continue to monitor closely and follow as needed. #[id number] [facility]
[2020-01-15] MEDS: hydrOXYzine HCl 25 MG TAB PO SCH (20:14)
[2020-01-15] MEDS: ATORVASTATIN 20 MG TAB PO SCH (20:15)
[2020-01-15] MEDS: CLOPIDOGREL 75 MG TAB PO SCH (20:15)
[2020-01-16] MEDS: SUCRALFATE 1 GM TAB PO SCH ×2 (06:25→11:28)
[2020-01-16] MEDS: LEVOTHYROXINE SODIUM 0.1 MG, LEVOTHYROXINE SODIUM 0.025 MG PO SCH ×2 (06:25)
[2020-01-16] MEDS: PANTOPRAZOLE SODIUM TAB 40 MG PO SCH (06:25)
[2020-01-16] MEDS: DEXAMETHASONE INJ 10 MG/ML VIAL IV SCH (09:06)
[2020-01-16] MEDS: AZITHROMYCIN IV 500 MG in SODIUM CHLORIDE 0.9% 250ML 250 ML IVPB SCH (09:06)
[2020-01-16] MEDS: levETIRAcetam 250 MG TAB PO SCH (09:07)
[2020-01-16] MEDS: ASPIRIN (CHEWABLE) 81 MG TAB PO SCH (09:07)
[2020-01-16] MEDS: LISINOPRIL 5 MG TAB PO SCH (09:07)
[2020-01-16] MEDS: guaiFENesin ER TAB 600 MG TAB PO SCH (09:07)
[2020-01-16] MEDS: BIFIDOBACTERIUM INFANTIS 4 MG CAP PO SCH (09:07)
[2020-01-16] MEDS: FLUoxetine HCL 10 MG CAP PO SCH (09:07)
[2020-01-16] MEDS: ENOXAPARIN SODIUM 40 MG/0.4 ML SYG SUBCU SCH (09:07)
[2020-01-16] MEDS: NON-FORMULARY MEDICATION 1 EA MIS (Umeclidinium-Vilanterol [Anoro Ellipta 62.5-25 Mcg/Inh] IN SCH (09:08)
[2020-01-16] MEDS ORDERED: POTASSIUM CHLORIDE 20 MEQ TAB PO ONE (09:12)
[2020-01-16] MEDS: ALBUTEROL INHALER 64 PUFF/8GM INH SCH ×2 (09:15→15:01)
[2020-01-16] MEDS ORDERED: SODIUM CHLORIDE 0.9% 250ML 250 ML IVS ONE (09:17)
[2020-01-16] MEDS ORDERED: POTASSIUM CHLORIDE 20 MEQ TAB ONE (09:40)
[2020-01-16] MEDS ORDERED: SODIUM CHLORIDE 0.9% 250ML 250 ML ONE (09:40)
[2020-01-16 13:18] VITALS: BP 140/80; TEMP 97.9; O2SAT 97
[2020-01-16] MEDS: cefTRIAXone SODIUM 1 GM in SODIUM CHL 0.9% 50ML MIN-BAG+ 50 ML IVPB SCH (13:36)
--- NOTE | 2020-01-17 08:45 | DS ---
SUPERVISING PHYSICIAN: Cecilio Torres MD DISCHARGE DIAGNOSIS: 1. Acute encephalopathy secondary to acute hypoxic event and exacerbated by COVID pneumonitis. 2. COVID pneumonitis. 3. Chest pain, epigastric region, pain resolved with GI cocktail, Although troponins did elevate, they are trending downward at this time. 4. Acute pulmonary edema, improved. 5. Chronic obstructive pulmonary disease with exacerbation with concerns for possible aspiration verus developing pneumonia secondary to COVID-19 infection. 6. History of seizure disorder, unknown if patient had a seizure. The patient is on Keppra at this time. 7. Hypertension with grade 1 diastolic dysfunction. Last echocardiogram in 2019 showed ejection fraction of 45 to 50%. 8. History of subarachnoid hemorrhage status post fall in 2014, patient having previously been on Coumadin. 9. History of hypercoagulopathy with history of deep venous thromboses and pulmonary embolus with current workup indicating negative for pulmonary emboli. 10. Chronic tobacco abuse, recently quit smoking. 11. Chronic back pain on fentanyl and hydrocodone. 12. Osteoarthritis. 13. Hyponatremia, may be secondary to her present illness and contributing to her confusion. 14. Elevated troponin levels likely due to acute hypoxic event with no reported chest pain and probably exacerbated by underlying COVID infection. HISTORY OF PRESENT ILLNESS: This is an 84-year-old female patient who came to the Emergency Room via EMS secondary to some lethargy that morning. She was hypoxic on initial presentation with some mild pulmonary edema and positive for coronavirus with concerns for aspiration. Per EMS, the patient usually awakens daily around 5 or 6 AM, the family went in to wake her up and were unable to do so. She is on a fentanyl patch at 50 mcg as well as hydrocodone for breakthrough pain. The family denied that the patient had possibly too much medication. There were no recent illnesses was reported. There was some emesis in the bed and the family thought she may have had a seizure. She has a history of seizure disorder and is on Keppra. In the Emergency Room, she was unable to arouse to give a significant history but was following commands and oxygen saturation initially were in the mid 80s, but after placing her on 2 liters nasal cannula, they did improve. She also had an elevated troponin which was felt to be due to her hypoxia and acute pulmonary edema as well as the COVID infection. The patient denied any chest pain. 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 Her EKG showed a paced rhythm. CT of the chest showed some material in the left bronchi which could possibly be aspirated material. She was given a broad spectrum antibiotic coverage with meropenem, clindamycin, Rocephin and azithromycin in the Emergency Room. Her pulmonary edema corrected once the hypoxia was improved with oxygen and she was maintaining 2 liters on nasal cannula and became much more awake. COVID lab was initiated as well as COVID medication treatment with Remdesivir and Decadron in addition to her antibiotics. She was admitted to the hospital for possible aspiration pneumonia with COVID pneumonitis. She was in stable condition at time of admission. HOSPITAL COURSE: The patient was admitted for treatment of COVID-19 pneumonitis and her pneumonia was monitored. It was felt it was more likely a mucus plug than actual aspiration. She was continued on azithromycin, Rocephin, Decadron, Remdesivir and Lovenox. She continued on her home medications as well. The fentanyl patch was discontinued and left off for several days. When she was more alert, the fentanyl patch was continued, but at 25 mcg. She was also on a proton pump inhibitor for ulcer prophylaxis and Align. She had aggressive pulmonary hygiene that included an albuterol inhaler both p.r.n. and scheduled. She slowly but progressively improved as far as her pneumonia status. At one point, she had been made a DNR and then it was changed back to a full code. I am not quite sure why she was changed as the patient expressed to me that she did not want to be put on a breathing machine. Her COVID lab improved although she became progressively weaker. Initially, physical therapy did an evaluation. They felt she was safe to return home. She also had a difficult time with calling for help and frequently was found to be climbing out of bed. Her bed alarm went off quite frequently. She was actually getting up one to two times per hour throughout both the day and the night. Her sodium did drop to 127 and she had been placed on fluid restrictions as well as given some judicious saline. The patient has poor oral intake including both fluids and food. She did have a dietary consultation. The patient did well on the fentanyl patch at 25 mcg. I discussed with her family at length about her progressive weakness and felt that she could benefit from half-way placement with physical therapy for a short period of time and felt it was unsafe for her to return home without close observation. After a lengthy discussion, the family did decide that the patient would go home with 24 hour care. They do have a bed alarm. At this point, her sodium is still low, but I spoke with her primary care physician, Dr. Reji Schmitt, and he felt she could be managed with [facility] and he would closely monitor her sodium. She will be discharged home today in stable condition. LABORATORY: WBCs remained stable between 6.2 and 8. Hemoglobin was stable around 11 to 12 and her hematocrit around 32.1 to 36.6. Her platelets were in the 160s to 200s. At one point, she did have a left shift on her differential with neutrophils at 86%, which today it is 66.2%. Her D-dimer initially was 665 and went up to 625. Today, it is 360. Her fibrinogen was as high as 429 and is now 304. Her sodium initially was 139 and went as low as 127. Her potassium did drop several times to 3.2 which required supplementation. It was 3.2 today and she did get some oral potassium. Chloride is somewhat low at 94. BUN is stable at 10, creatinine 0.8. Lactic acid was 0.9 on admission. Magnesium was low on admission at 1.4 which required supplementation. She required magnesium supplementation several times. Today, it is 1.8. Her alkaline phosphatase was 40 and today is 36. AST 21, ALT 11, LD 205. Troponin on admission was 0.06 and went up as high as 0.13. This remained stable the last two days at 0.1. C- reactive protein was as high as 11.1 and is now 1.5. Urinalysis was unremarkable. MICROBIOLOGY: Stool for occult blood was positive. Giardia was negative. Stool leukocytes showed a presence of elevated fecal lactoferrin. Stool culture is pending. C. difficile was negative for antigen and toxin. Rotavirus was negative. Blood cultures show no growth after 5 days. RADIOLOGY: Head CT on admission showed no acute intracranial findings. Her initial radiology reports are per the history of present illness. Her final chest x-ray showed no acute cardiopulmonary process. She will be discharged today in stable condition. DISCHARGE PLAN: The patient will be discharged home in screening colonoscopy. As previously noted, she will have [facility] as well as 24 hour care at home. She is to resume her previous diet and increase her activity as tolerated. It is recommended that after the appropriate isolation time, she may benefit from [facility] physical therapy program. She has a followup appointment with her primary care physician via Telehealth on 01/20/20 at 3:15 PM. I sent an order to [facility] to drawn a BMP and CBC on 01/19/20 so those labs will be available to Dr. Schmitt at her followup appointment. In addition to her routine home medications, I have discontinued her fentanyl patch 50 mcg per hour and she has a fentanyl patch that is 25 mcg per hour and has been instructed to call Dr. Schmitt' office for a prescription for the lower dose. She is also to continue on Align as well as 3 days of cefdinir, 3 days of Decadron tabs, 30 days of Eliquis at 2.5 mg twice daily, guaifenesin and her albuterol inhaler as needed. She is to return to the hospital or followup with Dr. Schmitt for any problems or complications. DISCHARGE MEDICATIONS: 1. Prednisone. 2. Hydrocodone. 3. Levothyroxine. 4. Cyanocobalamin. 5. Keppra. 6. Fluoxetine. 7. Hydroxyzine. 8. Lisinopril. 9. Women's daily vitamin. 10. Anoro Ellipta. 11. Aspirin. 12. Fentanyl patch 25 mcg per hour. 13. Potassium chloride. 14. Plavix. 15. Atorvastatin. 16. Hydroxychloroquine. 17. Sucralfate. 18. Align. 19. Cefdinir. 20. Dexamethasone. 21. Eliquis. 22. Guaifenesin. 23. Albuterol inhaler. #[id number] [facility]
== END 2020-01-16 15:05 | disposition home health service (06) | DRG 177 ==
LOC: ER 05:58 → OBSVTOIN 11:29 → MS 11:29
PROVIDERS: ADMIT Nurse Practitioner Family; ATTEND Nurse Practitioner Acute Care
PROC: B32T1ZZ Computerized Tomography (CT Scan) of Left Pulmonary Artery using Low Osmolar Contrast (ICD-10-PCS; 2020-01-09)
PROC: B32S1ZZ Computerized Tomography (CT Scan) of Right Pulmonary Artery using Low Osmolar Contrast (ICD-10-PCS; 2020-01-09)
PROC: XW033E5 Introduction of Remdesivir Anti-infective into Peripheral Vein, Percutaneous Approach, New Technology Group 5 (ICD-10-PCS; 2020-01-09)
PROC: BW211ZZ Computerized Tomography (CT Scan) of Abdomen and Pelvis using Low Osmolar Contrast (ICD-10-PCS; principal; 2020-01-12)
DX: U07.1 COVID-19 (principal); J12.89 Other viral pneumonia; G93.40 Encephalopathy, unspecified; J44.1 Chronic obstructive pulmonary disease with (acute) exacerbation; J44.0 Chronic obstructive pulmonary disease with (acute) lower respiratory infection; I50.32 Chronic diastolic (congestive) heart failure; E87.1 Hypo-osmolality and hyponatremia; R09.02 Hypoxemia; R79.89 Other specified abnormal findings of blood chemistry; G89.29 Other chronic pain; G40.909 Epilepsy, unspecified, not intractable, without status epilepticus; I11.0 Hypertensive heart disease with heart failure; M19.90 Unspecified osteoarthritis, unspecified site; I35.1 Nonrheumatic aortic (valve) insufficiency; E53.8 Deficiency of other specified B group vitamins; Z66 Do not resuscitate; Z88.0 Allergy status to penicillin; Z88.1 Allergy status to other antibiotic agents; Z88.2 Allergy status to sulfonamides; Z88.8 Allergy status to other drugs, medicaments and biological substances; Z86.718 Personal history of other venous thrombosis and embolism; Z86.711 Personal history of pulmonary embolism; Z87.891 Personal history of nicotine dependence; Z79.891 Long term (current) use of opiate analgesic; Z95.0 Presence of cardiac pacemaker; Z79.52 Long term (current) use of systemic steroids; Z79.82 Long term (current) use of aspirin; Z79.02 Long term (current) use of antithrombotics/antiplatelets; Z79.899 Other long term (current) drug therapy

== ENCOUNTER → 2020-01-19 | Outpatient (CLI) | payer MEDICARE, OTHER | LOC: BFHH 14:40 | PROVIDERS: ATTEND Family Medicine | DX: I11.0 Hypertensive heart disease with heart failure (principal); I50.21 Acute systolic (congestive) heart failure; U07.1 COVID-19 ==

== ENCOUNTER 2020-02-04 08:53 | Emergency (ER) | payer MEDICARE, OTHER ==
--- NOTE | 2020-02-04 09:07 | ED.PDOC ---
History of Present Illness - General Time Seen by Provider: 02/04/20 08:54 Source: patient, RN notes reviewed, Vital Signs reviewed, EMS notes reviewed, family, EMS, old records Exam Limitations: clinical condition - History of Present Illness Initial Comments: 84 yo F with hx COPD, RA, seizures comes in from home with AMS and abdominal pain. Per granddaughter patient was released from hospital 2 weeks ago with the dx COVID. States her grandmother gets alerted when not feeling well. Granddaughter director of medicare, states she has been eating normally, no fever, no shortness of breath. Does not wear oxygen at home. 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 Patient complains of abdominal pain, arm and leg pain. Does wear fentanyl patch as well as take norco for chronic pain at home. Allergies/Adverse Reactions: Allergies Rosuvastatin [From Crestor] Allergy (Severe, Verified 11/12/19 10:00) Other CI Pigment Blue 63 [From Cymbalta] Allergy (Intermediate, Verified 11/12/19 10:00) Vomitting Duloxetine [From Cymbalta] Allergy (Intermediate, Verified 11/12/19 10:00) Vomitting Sulfa Antibiotics Allergy (Intermediate, Verified 11/12/19 10:00) Hives Penicillin G Allergy (Mild, Verified 11/12/19 10:00) Rash Ciprofloxacin Allergy (Verified 11/12/19 10:00) Varenicline [From Chantix] Adverse Reaction (Intermediate, Verified 11/12/19 10:00) Vomitting Home Medications: Ambulatory Orders HYDROcodone 10MG/APAP 325MG [[place]olt 10/325] 1 tablet PO TID PRN 03/01/13 predniSONE [PredniSONE] 5 mg PO DAILY 03/01/13 Levothyroxine Sodium [Levoxyl] 125 mcg PO QAM 09/14/14 Cyanocobalamin Inj [Vitamin B-12 Inj] 1,000 mcg IM MONTHLY 02/18/15 Fluoxetine HCl [Prozac] 30 mg PO DAILY 06/23/16 Levetiracetam [Keppra] 250 mg PO BID 06/23/16 hydrOXYzine HCl [Atarax] 25 mg PO BEDTIME 05/08/17 Lisinopril 5 mg PO DAILY 09/14/18 Aspirin [Aspirin 81 Low Dose] 81 mg PO DAILY 01/09/20 Atorvastatin Calcium 40 mg PO QPM 01/09/20 Clopidogrel Bisulfate [Plavix] 75 mg PO BEDTIME 01/09/20 Hydroxychloroquine Sulfate [Hydroxychloroquine Sulfat] 200 mg PO BID 01/09/20 Potassium Chloride [K-Tab] 8 meq PO DAILY 01/09/20 Sucralfate Tab [Carafate Tab] 1 gm PO QID 01/09/20 Umeclidinium-Vilanterol [Anoro Ellipta 62.5-25 Mcg/INH] 1 aer IN DAILY 01/09/20 Women's Daily Care 1 capsule PO DAILY 01/09/20 Albuterol Inhaler [Ventolin Hfa Inhaler] 2 puff INH PRN PRN inh 01/16/20 Albuterol Inhaler [Ventolin Hfa Inhaler] 2 puff INH RTQID inh 01/16/20 Apixaban [Eliquis] 2.5 mg PO BID #60 01/16/20 Bifidobacterium Infantis [Align] 4 mg PO BID cap 01/16/20 Cefdinir 300 mg PO BID #7 capsule 01/16/20 Dexamethasone Tab [Decadron Tab] 4 mg PO DAILY #3 tab 01/16/20 fentaNYL PATCH 25 MCG/HR [Duragesic Patch 25 MCG/HR] 1 ea TD Q72H patch 01/16/20 guaiFENesin ER TAB [Mucinex Tab] 600 mg PO BID tab 01/16/20 Diclofenac Sodium (Topical) [Pennsaid] 2 % TD BID PRN #1 tube 02/04/20 Review of Systems - Review of Systems Constitutional: States: malaise. Denies: chills, fever EENTM: Denies: throat pain, mouth pain Respiratory: Denies: cough, short of breath, stridor Cardiology: Denies: palpitations, syncope Gastrointestinal/Abdominal: States: abdominal pain. Denies: diarrhea, nausea, vomiting Genitourinary: Denies: dysuria, frequency Musculoskeletal: States: back pain, joint pain, muscle pain Skin: Denies: rash Neurological: Denies: headache, numbness, seizure, weakness Endocrine: Denies: unexplained weight gain, unexplained weight loss Hematologic/Lymphatic: Denies: easy bleeding, easy bruising Past Medical History (General) - Patient Medical History Hx Seizures: Yes Hx Stroke: No Hx Dementia: No Hx Asthma: No Hx of COPD: Yes Hx Cardiac Disorders: No Hx Congestive Heart Failure: No Hx Pacemaker: Yes Hx Hypertension: Yes Hx Thyroid Disease: No Hx Diabetes: No Hx Gastroesophageal Reflux: No Hx Renal Disease: No Hx Cancer: No Hx of HIV: No Hx Hepatitis C: No Hx MRSA: No Surgical History: appendectomy, other - hysterectomy - Vaccination History Hx Tetanus, Diphtheria Vaccination: Yes Hx Influenza Vaccination: Yes Hx Pneumococcal Vaccination: Yes - Social History Hx Tobacco Use: Yes Hx Chewing Tobacco Use: No Hx Alcohol Use: No Hx Substance Use: No Hx Substance Use Treatment: No Hx Depression: No Hx Physical Abuse: No Hx Emotional Abuse: No Hx Suspected Abuse: No - Female History Patient : Yes Family Medical History - Family History Mother Living Status: Hx Family Asthma: No Hx Family Congestive Heart Failure: Yes - mom Hx Family Hypertension: Yes - dad Hx Family Stroke: No Hx Cardiac Disease: No Hx Family Diabetes: Yes - dad Hx Family Cancer: Yes - multiple family members-brain,gastric Physical Exam - Physical Exam General Appearance: Alert, Anxious, Restless, Well Developed, Well Hydrated, Well Nourished Eye Exam: bilateral normal Ears, Nose, Throat: hearing grossly normal, normal ENT inspection, normal pharynx Neck: non-tender, full range of motion, supple, normal inspection Respiratory: chest non-tender, lungs clear, normal breath sounds, no respiratory distress, no accessory muscle use Cardiovascular/Chest: normal peripheral pulses, regular rate, rhythm, no edema, no gallop, no JVD, no murmur Peripheral Pulses: radial,right: 2+, radial,left: 2+ Gastrointestinal/Abdominal: normal bowel sounds, non tender, soft, no organomegaly, no pulsatile mass Rectal Exam: deferred Back Exam: normal inspection, no CVA tenderness, no vertebral tenderness Extremity: normal range of motion, no pedal edema, no calf tenderness, normal capillary refill, other - arthralgic changes of hands. Neurologic: no motor/sensory deficits, alert, normal mood/affect, oriented x 3, other - no focal defcitis Skin Exam: warm/dry, other - senile purpura Progress - Progress Progress: patient resting comfrtably. given a dose of dexamethasone. pain improved. given dose of fluconazole for yeast infection. Oriented x 3, no current evidence of AMS. The data reviewed when caring for this patient included: nurse notes, prior records, etc. The history and assessments from nurses notes were reviewed and considered, and the patient's home medication list was also reviewed and considered. My assessment and the results of testing completed here in the ED were discussed with the patient/family. All questions were answered, and they express understanding of my assessment and the plan. They have been instructed to return if their symptoms worsen, and have been asked to follow up with their primary care physician to recheck today's presenting complaint. Strict return precautions given. vss, saturating 95% on RA. Thi Vazquez DO #[id number] 02/04/20 13:36 02/04/20 13:38 - Results/Orders Results/Orders: 02/04/20 09:00 EKG STAT 02/04/20 10:08 Hold Metformin x 48Hrs [id number] 02/04/20 13:29 Discharge Stat Laboratory Results WBC 8.8 K/mm3 (4.8-10.8) 02/04/20 09:30 RBC 3.26 M/mm3 (4.20-5.40) L 02/04/20 09:30 Hgb 10.1 gm/dL (12.0-16.0) L 02/04/20 09:30 Hct 30.0 % (36.0-47.0) L 02/04/20 09:30 MCV 91.9 fl (81.0-99.0) 02/04/20 09:30 MCH 30.9 pg (27.0-31.0) 02/04/20 09:30 MCHC 33.6 g/dL (33.0-37.0) 02/04/20 09:30 RDW 16.4 % (11.5-14.5) H 02/04/20 09:30 Plt Count 205 K/mm3 (130-400) 02/04/20 09:30 MPV 9.6 fl (7.40-10.4) 02/04/20 09:30 Absolute Neuts (auto) 6.10 K/uL (1.8-6.8) 02/04/20 09:30 Absolute Lymphs (auto) 1.30 K/uL (1.0-3.4) 02/04/20 09:30 Absolute Monos (auto) 0.90 K/uL (0.2-0.8) H 02/04/20 09:30 Absolute Eos (auto) 0.40 K/uL (0.0-0.4) 02/04/20 09:30 Absolute Basos (auto) 0.10 K/uL (0.0-0.1) 02/04/20 09:30 Neutrophils % 69.5 % (42.0-78.0) 02/04/20 09:30 Lymphocytes % 14.6 % (20.0-50.0) L 02/04/20 09:30 Monocytes % 10.7 % (2.0-9.0) H 02/04/20 09:30 Eosinophils % 4.3 % (1.0-5.0) 02/04/20 09:30 Basophils % 0.9 % (0.0-2.0) 02/04/20 09:30 PT 12.0 SECONDS (9.0-10.9) H 02/04/20 09:30 INR 1.21 (0.9-1.15) H 02/04/20 09:30 PTT (SP) 36.2 SECONDS (21.8-31.6) H 02/04/20 09:30 pCO2 26 mmHg (32-45) L 02/04/20 09:00 pO2 101 mmHg (83-108) 02/04/20 09:00 HCO3 22.0 mmol/L 02/04/20 09:00 ABG pH 7.530 (7.35-7.45) H 02/04/20 09:00 ABG O2 Saturation 98.9 % (95.0-99.0) 02/04/20 09:00 ABG Base Excess 0.1 mmol/L 02/04/20 09:00 ABG Deoxyhemoglobin 1.1 % (0.0-5.0) 02/04/20 09:00 Oxyhemoglobin % 97.3 % (94.0-98.0) 02/04/20 09:00 Carboxyhemoglobin % 1.2 % (0.5-1.5) 02/04/20 09:00 Methemoglobin % Sat 0.4 % (0.0-1.5) 02/04/20 09:00 Calc Total Hemoglobin 10.0 g/dL (12.0-16.0) L 02/04/20 09:00 Sodium 137 mmol/L (135-145) 02/04/20 09:30 Potassium 3.6 mmol/L (3.6-5.0) 02/04/20 09:30 Chloride 103 mmol/L (101-111) 02/04/20 09:30 Carbon Dioxide 22 mmol/L (21-31) 02/04/20 09:30 Anion Gap 15.6 (12-18) 02/04/20 09:30 BUN 18 mg/dL (7-18) 02/04/20 09:30 Creatinine 0.79 mg/dL (0.6-1.3) 02/04/20 09:30 BUN/Creatinine Ratio 22.8 (10-20) H 02/04/20 09:30 Random Glucose 81 mg/dL (70-105) 02/04/20 09:30 Serum Osmolality 274.7 mOsm/L (275-295) L 02/04/20 09:30 Lactic Acid 0.9 mmol/L (0.5-2.2) 02/04/20 09:52 Calcium 8.9 mg/dL (8.4-10.2) 02/04/20 09:30 Magnesium 1.5 mg/dL (1.8-2.5) L 02/04/20 09:30 Total Bilirubin 0.6 mg/dL (0.2-1.0) 02/04/20 09:30 AST 17 IU/L (10-42) 02/04/20 09:30 ALT 9 IU/L (10-60) L 02/04/20 09:30 Alkaline Phosphatase 40 IU/L (42-121) L 02/04/20 09:30 Ammonia 13 umol/L (10-35) 02/04/20 09:30 LD Total 181 IU/L (91-180) H 02/04/20 09:30 Troponin I 0.05 ng/mL (0.01-0.05) 02/04/20 09:30 C-Reactive Protein 14.3 mg/dL (0-1.0) H* 02/04/20 09:30 B-Natriuretic Peptide 146.0 pg/ml (0-100) H 02/04/20 09:30 Serum Total Protein 5.9 gm/dL (6.4-8.2) L 02/04/20 09:30 Albumin 3.0 g/dl (3.2-5.5) L 02/04/20 09:30 Globulin 2.9 gm/dL (2.3-3.5) 02/04/20 09:30 Albumin/Globulin Ratio 1.0 (1.1-1.9) L 02/04/20 09:30 Lipase 21 U/L (22-51) L 02/04/20 09:30 TSH 4.84 uIU/mL (0.34-5.60) 02/04/20 08:53 Urine Color Yellow (Yellow) 02/04/20 12:50 Urine Appearance Clear (Clear) 02/04/20 12:50 Urine pH 5.5 (4.5-7.8) 02/04/20 12:50 Ur Specific [place] >= 1.030 (1.005-1.030) 02/04/20 12:50 Urine Protein Trace mg/dL 02/04/20 12:50 Urine Glucose (UA) Negative mg/dL (Negative) 02/04/20 12:50 Urine Ketones Negative mg/dL (NEGATIVE) 02/04/20 12:50 Urine Blood Negative (Negative) 02/04/20 12:50 Urine Nitrite Negative 02/04/20 12:50 Urine Bilirubin Negative (NEGATIVE) 02/04/20 12:50 Urine Urobilinogen 0.2 mg/dL (0.2-1.0) 02/04/20 12:50 Ur Leukocyte Esterase Negative (Negative) 02/04/20 12:50 Urine RBC 0-1 /hpf 02/04/20 12:50 Urine WBC 1-3 /hpf 02/04/20 12:50 Ur Epithelial Cells 0-1 /hpf 02/04/20 12:50 Calcium Oxalate Crystal 1+ /hpf 02/04/20 12:50 Urine Bacteria Rare 02/04/20 12:50 Urine Yeast 1+ budding H 02/04/20 12:50 elevated CRP may be related to her RA. - EKG/XRAY/CT Comments: Paced, pvc vs fusion beat. no sign change when compared to 12/2019 XRAY: chest - bilateral haziness, given no wbc, fever or symptoms unlikely pnuemonia CT: head/abd/pelvis: no acute pathology Departure - Departure Clinical Impression: COVID-19, Atelectasis Arthralgia Qualifiers: Joint pain location: unspecified Qualified Code(s): M25.50 - Pain in unspecified joint Constipation Qualifiers: Constipation type: unspecified constipation type Qualified Code(s): K59.00 - Constipation, unspecified Time of Disposition: 13:00 Disposition: Discharge to Home or Self Care Instructions: Atelectasis, Yeast Infection (DC), Joint Pain Diet: resume usual diet Activity: increase activity as tolerated Referrals: Reji Schmitt III, MD [Primary Care Provider] - 1-2 Days Prescriptions: Diclofenac Sodium (Topical) [Pennsaid] 2 % TD BID PRN #1 tube PRN Reason: Pain Home Medications: Ambulatory Orders HYDROcodone 10MG/APAP 325MG [Holt 10/325] 1 tablet PO TID PRN 03/01/13 predniSONE [PredniSONE] 5 mg PO DAILY 03/01/13 Levothyroxine Sodium [Levoxyl] 125 mcg PO QAM 09/14/14 Cyanocobalamin Inj [Vitamin B-12 Inj] 1,000 mcg IM MONTHLY 02/18/15 Fluoxetine HCl [Prozac] 30 mg PO DAILY 06/23/16 Levetiracetam [Keppra] 250 mg PO BID 06/23/16 hydrOXYzine HCl [Atarax] 25 mg PO BEDTIME 05/08/17 Lisinopril 5 mg PO DAILY 09/14/18 Aspirin [Aspirin 81 Low Dose] 81 mg PO DAILY 01/09/20 Atorvastatin Calcium 40 mg PO QPM 01/09/20 Clopidogrel Bisulfate [Plavix] 75 mg PO BEDTIME 01/09/20 Hydroxychloroquine Sulfate [Hydroxychloroquine Sulfat] 200 mg PO BID 01/09/20 Potassium Chloride [K-Tab] 8 meq PO DAILY 01/09/20 Sucralfate Tab [Carafate Tab] 1 gm PO QID 01/09/20 Umeclidinium-Vilanterol [Anoro Ellipta 62.5-25 Mcg/INH] 1 aer IN DAILY 01/09/20 Women's Daily Care 1 capsule PO DAILY 01/09/20 Albuterol Inhaler [Ventolin Hfa Inhaler] 2 puff INH PRN PRN inh 01/16/20 Albuterol Inhaler [Ventolin Hfa Inhaler] 2 puff INH RTQID inh 01/16/20 Apixaban [Eliquis] 2.5 mg PO BID #60 01/16/20 Bifidobacterium Infantis [Align] 4 mg PO BID cap 01/16/20 Cefdinir 300 mg PO BID #7 capsule 01/16/20 Dexamethasone Tab [Decadron Tab] 4 mg PO DAILY #3 tab 01/16/20 fentaNYL PATCH 25 MCG/HR [Duragesic Patch 25 MCG/HR] 1 ea TD Q72H patch 01/16/20 guaiFENesin ER TAB [Mucinex Tab] 600 mg PO BID tab 01/16/20 Diclofenac Sodium (Topical) [Pennsaid] 2 % TD BID PRN #1 tube 02/04/20
--- NOTE | 2020-02-04 09:39 | CT ---
Study: CT of the Head. Indication: ams Technique: Axial CT images of the head were acquired without intravenous contrast. This exam was performed according to our departmental dose-optimization program, which includes automated exposure control, adjustment of the mA and/or kV according to patient size and/or use of iterative reconstruction technique. Comparison: None. Findings: Moderately motion degradation at the level of the inferior third of the brain. No gross acute ischemia, acute hemorrhage, mass, mass effect, midline shift, or extra-axial fluid collection identified by CT. Ventricles are normal in configuration without hydrocephalus. Patchy hypoattenuation of the periventricular and subcortical white matter noted. This is nonspecific but most consistent with chronic microvascular ischemic change. Global parenchymal volume loss and intracranial atherosclerosis noted as well. Paranasal sinuses are adequately aerated. Mastoid air cells are adequately aerated. Osseous structures and soft tissues are unremarkable. Impression: No acute intracranial abnormality by CT. Senescent changes. Electronically signed by: Cristofer Shea MD 02/04/2020 9:38 AM FLIGHT SURGEON
--- NOTE | 2020-02-04 09:40 | RAD ---
Study: Single Frontal Radiograph of the Chest. Indication:covid Comparison: January 15, 2020 Impression: Pacemaker. Cardiomegaly. Atherosclerosis aorta. Subtle hazy increased density at the lung bases, left greater than right, concerning for atelectasis versus pneumonia. Follow-up to resolution recommended. No pleural effusion or pneumothorax identified. Osteopenia. If this is a new finding, DEXA scan recommended as well as evaluation for possible osteoporosis treatment. Electronically signed by: Cristofer Shea MD 02/04/2020 9:39 AM [facility]
[2020-02-04] MEDS ORDERED: SODIUM CHLORIDE 0.9% 500ML 500 ML IVS ONE (11:34)
--- NOTE | 2020-02-04 11:50 | CT ---
Study: CT abdomen and pelvis. Indication: abd pain Technique: Venous phase CT imaging of the abdomen and pelvis obtained after intravenous administration of contrast. This exam was performed according to our departmental dose-optimization program, which includes automated exposure control, adjustment of the mA and/or kV according to patient size and/or use of iterative reconstruction technique. Comparison: January 12, 2020 Findings: Lung bases hyperexpanded patchy bibasilar atelectasis. Cardiomegaly. Cardiac pacemaker. Pronounced atherosclerosis. Calcified hepatic granulomas. Gallbladder distended. Pancreas and adrenal glands unremarkable. Tiny splenic cyst redemonstrated. Mild nonspecific bilateral perinephric stranding. Pessary device present. Bladder unremarkable. Uterus and ovaries are surgically absent or small. Mild constipation. Stomach and small bowel unremarkable. Appendix not visualized. No free fluid. No free air. No pathologically enlarged lymphadenopathy. Degenerative changes of the spine noted. Impression: Mild constipation. Additional stable findings as above. Electronically signed by: Cristofer Shea MD 02/04/2020 11:48 AM [employer]
[2020-02-04] MEDS ORDERED: FLUCONAZOLE 150 MG TAB PO ONE (13:17)
[2020-02-04 14:31] VITALS: BP 137/87; TEMP 98.8; O2SAT 94
== END 2020-02-04 13:55 | disposition home or self-care (01) ==
LOC: ER 08:53
DX: U07.1 COVID-19 (principal); J98.11 Atelectasis; K59.00 Constipation, unspecified; M25.50 Pain in unspecified joint; R10.9 Unspecified abdominal pain; M06.9 Rheumatoid arthritis, unspecified; M79.606 Pain in leg, unspecified; R56.9 Unspecified convulsions; J44.9 Chronic obstructive pulmonary disease, unspecified; I10 Essential (primary) hypertension; Z95.0 Presence of cardiac pacemaker; Z87.891 Personal history of nicotine dependence; Z79.899 Other long term (current) drug therapy; Z79.82 Long term (current) use of aspirin; Z79.02 Long term (current) use of antithrombotics/antiplatelets; Z88.8 Allergy status to other drugs, medicaments and biological substances; Z88.2 Allergy status to sulfonamides; Z88.0 Allergy status to penicillin; Z88.1 Allergy status to other antibiotic agents; Z90.49 Acquired absence of other specified parts of digestive tract
CPT/HCPCS: 36415; 36600; 70450; 71045; 74177; 80053; 81001; 82140; 82803; 82805; 83605; 83615; 83690; 83735; 83880; 84443; 84484; 85025; 85610; 85730; 86140; 87502; 87635; 93005; J7040